=== PATIENT | male | born 1975 | race Caucasian/White ===

== ENCOUNTER 2020-02-02 19:11 | Observation (INO) ==
[2020-02-02] MEDS ORDERED: ONDANSETRON INJ 2 MG/ML 2 ML VIAL IV STA (19:55)
[2020-02-02 20:30] LABS: Basophils # (auto) 0.01 K/uL (0-0.2); Eosinophils # (auto) 0.01 K/uL (0-0.5); Hemoglobin 14.3 g/dL (14.0-18.0); Immature Granulocytes # (auto) 0.13 K/uL (0.00-0.02); Immature Granulocytes % (auto) 0.6 %; Lymphocytes # (auto) 2.18 K/uL (1.2-3.4); Lymphocytes % (auto) 10.2 %; Mean Corpuscular Hemoglobin 31.2 pg (25-34); Mean Corpuscular Volume 91.7 fL (80-100); Mean Platelet Volume 9.5 fL (7.4-10.4); Monocytes # (auto) 1.91 K/uL (0.11-0.59); Monocytes % (auto) 8.9 %; Neutrophils # (auto) 17.19 K/uL (1.4-6.5); Neutrophils % (auto) 80.3 %; Platelet Count 229 K/uL (130-400); RDW Coefficient of Variation 14.3 % (11.5-14.5); RDW Standard Deviation 48.1 fL (36.4-46.3); Red Blood Count 4.58 M/uL (4.7-6.1); White Blood Count 21.43 K/uL (4.8-10.8)
[2020-02-02 20:33] LABS: Base Excess VBG 4.4 mEq/L; Oxygen Saturation VBG 63.4 %; pH VBG 7.44 (7.36-7.41)
[2020-02-02 20:47] LABS: Alanine Aminotransferase 15 U/L (12-78); Albumin Level 3.1 gm/dl (3.4-5.0); Aspartate Aminotransferase 8 U/L (15-37); BUN Creatinine Ratio 13.1 (10-20); Blood Urea Nitrogen 10 mg/dl (7-18); Calcium 9.2 mg/dl (8.5-10.1); Carbon Dioxide 29 mmol/L (21-32); Chloride 97 mmol/L (98-107); Creatinine Clr Calc Pharmacy 182.3 ml/min; Est GFR (African American) 126.3; Glucose 126 mg/dl (70-99); Lipase 77 U/L (73-393); Potassium 3.8 mmol/L (3.5-5.1); Sodium 133 mmol/L (136-145)
[2020-02-02 20:57] LABS: Albumin Globulin Ratio 0.8 (0.9-2); Alkaline Phosphatase 69 U/L (45-117); Bilirubin,Total 0.2 mg/dl (0.2-1); Globulin 4.1 gm/dl (2.5-4.0); Thyroid Stimulating Hormone 0.454 uIu/ml (0.300-4.500); Total Protein 7.2 gm/dl (6.4-8.2); Troponin I < 0.015 ng/ml (0-0.045)
[2020-02-02 20:58] LABS: Acetaminophen < 2 ug/ml (10-30); Salicylate 2.1 mg/dl (2.8-20); Valproic Acid 114 mcg/ml (50-100)
[2020-02-02] MEDS ORDERED: ACETAMINOPHEN 500 MG TAB PO STA (21:16)
[2020-02-02] MEDS ORDERED: SODIUM CHLORIDE 0.9% 1000ML 1,000 ML IV ONE (21:16)
[2020-02-02] MEDS ORDERED: CEFEPIME 2,000 MG/20 ML VIAL IV STA (21:17)
[2020-02-02] MEDS ORDERED: OPTIRAY 320 125ml IV ONE (21:20)
--- NOTE | 2020-02-02 22:02 | Emergency Department Note ---
Impression & Plan Breathlessness, Fever, Somnolence ED Provider Note Provider: Aleksandr Bustamante MD DATE OF SERVICE: 02/02/2020 CHIEF COMPLAINT: Fatigue, shortness of breath HISTORY OF PRESENT ILLNESS: Patient is a 44-year-old gentleman with a history of anxiety, homelessness, and benzodiazepine chronic use is presenting here today via ambulance after he called for feeling tired and short of breath. Patient re ports he was recently hospitalized at [facility] and discharged 2 days ago. States has been homeless. Denies any falls. States he has had some left knee pain for the last year but this is not significantly changed. States that he is having more fatigue and shortness of breath. Patient states he did relapse today and took half a milligram of Klonopin earlier in addition to his evening Haldol at 6 PM. Also states he had some alcohol today. Denies other drugs to me. Denies again trauma or striking his head. Complains of some nausea. Denies active chest pain or abdominal pain to me. REVIEW OF SYSTEMS: A total of 10 review of systems was obtained and negative except as stated above in the HPI. PAST MEDICAL HISTORY: As noted above MEDICATIONS: Reviewed home medication list SOCIAL HISTORY: Smoker, homeless, endorses alcohol use today PHYSICAL EXAM: GENERAL: alert and oriented in no acute distress on stretcher resting with eyes closed. Oral temperature obtained myself at 37.9 C. Head: normocephalic and atraumatic EYES: No injection, discharge or icterus. PERRL NECK: Trachea midline. Supple. No meningismus or tenderness with full range of motion of the neck. ENT: Mucous membranes pink and moist. LUNGS: Airway patent. No retractions. Breath sounds clear with good air entry bilaterally. HEART: Regular rate and rhythm. No chest wall tenderness ABDOMEN: Soft and non-tender, without guarding or rebound. BACK: No bilateral flank tenderness. SKIN: Acyanotic, warm, dry, without rashes EXTREMITIES: Without swelling, tenderness or deformity for some slight left knee tenderness but no significant erythema or contusions appreciated NEUROLOGICAL: Falling asleep during questioning will answer some questions. Very drowsy. Moving all extremities and following commands. Slightly slurred speech. EK bpm normal sinus rhythm. No PVC. No acute ST segment elevation is notable. QTC 455. Some anterior T wave inversions and slight lateral ST flattening. Lateral T wave flattening's slightly worse but otherwise the cardiogram is not significantly different than January 18 of this year. CONTINUOUS CARDIAC MONITORING: was ordered and showed a heart rate of bpm in Patient's hypertension was referred to the hospitalist Patient's laboratory studies and imaging reviewed. Differential includes Viral syndrome, otitis, pharyngitis, pneumonia, influenza, meningitis, urinary tract infection, sepsis, bacteremia, ACS, VTE, cholecystitis, appendicitis, overdose, alcohol intoxication, metabolic encephalopathy, as well as other pathologies. 1 view chest x-ray: No evidence of acute pneumothorax or lobar pneumonia. No acute bony abnormality. Some slight hilar interstitial prominence noted question viral process or slight interstitial edema. IMPRESSION/MEDICAL DECISION MAKING: Patient presents state that he is feeling weak and shortness of breath. Patient is quite somnolent upon initial exam. Denies trauma but does endorse some use of Klonopin today as well as alcohol. States he also took his evening Haldol 2 hours prior to arrival. States a little bit of nausea but fairly benign abdomen. Patient does not acutely appear meningitic and follows commands. Patient complains of low bit of left knee pain is no stable swelling or trauma history and no significant contusions appreciated. Patient states this is been ongoing for about a year. Unsure is related to today's events. Did have a temperature of 37.9 orally for me here and proceeded with a full infectious and metabolic work-up. CT head was completed without acute intracranial abnormality noted per the prelim radiology report as well as a CT of the chest and the abdomen pelvis to look for other occult infectious possibilities. COVID test was sent. VBG without significant acidosis or hypercarbia. Leukocytosis of 21 is noted and with the borderline fever this is very concerning. Lactate likely not elevated. Procalcitonin 0.17. TSH within normal limits. No significant electrolyte abnormality or renal dysfunction noted. Salicylates detectable but not elevated significantly. Tylenol undetectable. Depakote just above 100 but not significantly outside the therapeutic range. Ethanol is undetectable. EKG without significant acute ST segment elevation with a negative troponin of lower suspicion for acute coronary syndrome. CT the chest preliminary read without evidence of PE or pneumonia. They do not see evidence of significant edema. CT the abdomen pelvis without significant intra-abdominal pathology. Patient was empirically covered with cefepime given leukocytosis and borderline fever here. Rapid coronavirus test negative. On reassessment he is not having severe neck pain and I have a lower suspicion at this time for acute meningitis but feel given his somnolence which may be medication related but with possible overlying infection further observation in the hospital would be prudent. He is diaphoretic and febrile upon reassessment that was after receiving Tylenol. Urine studies are still pending at this point. In agreement for further evalua tion here in the hospital. Hospitalist was contacted. DIAGNOSIS: Shortness of breath, fever, somnolence DISPOSITION: Hospitalist will evaluate Patient was agreeable with this plan. Preliminary Findings Only See Final Report For Complete Findings CT HEAD: No acute intracranial abnormality. Radiologist: Juanito Mello MD Study ready at 21:34 and initial results transmitted at 21:52 Preliminary Findings Only See Final Report For Complete Findings CT ABDOMEN & PELVIS With Contrast: Normal appendix. Unremarkable GI tract. Liver, gallbladder, pancreas, spleen, adrenal glands, kidneys, and reproductive organs are unremarkable. No free fluid, fluid collection, or free air. Radiologist: Juanito Mello MD Study ready at 21:41 and initial results transmitted at 21:54 Preliminary Findings Only See Final Report For Complete Findings CTA CHEST: No pulmonary embolism or acute aortic syndrome. No pneumonia, interstitial edema, or pleural effusion. Hepatic steatosis and hepatomegaly. Gynecomastia. Radiologist: Juanito Mello MD Study ready at 21:41 and initial results transmitted at 21:56 Past Med/Surg History Medical History (Updated 02/02/20 @ 23:11 by Aleksandr Bustamante M.D.) Bipolar disorder Depression with suicidal ideation Homelessness HTN (hypertension) Methamphetamine addiction Surgical History No pertinent past surgical history Family History Other No pertinent family history Social History Smoking Status: Current some day smoker Tobacco Type: Cigarettes Hx Substance Use: Yes Preferred Language: Yemeni Feels Safe at Home: Yes Allergies Allergies Allergy/AdvReac Type Severity Reaction Status Date / Time No Known Allergies Allergy Verified 02/02/20 21:43 Home Meds Home Medications Medication Instructions Recorded Confirmed divalproex [Depakote ER] 1,500 mg PO BID 06/16/19 02/02/20 venlafaxine [Effexor XR] 150 mg PO DAILY 06/16/19 02/02/20 clonazepam 0.5 - 1 mg PO DAILY PRN 01/19/20 02/02/20 folic acid 1 mg PO DAILY 01/19/20 02/02/20 hydroxyzine HCl 50 mg PO TID 01/19/20 02/02/20 lisinopril 10 mg PO DAILY 01/19/20 02/02/20 mirtazapine 15 mg PO HS 01/19/20 02/02/20 risperidone 1 mg PO BID 01/19/20 02/02/20 atorvastatin 40 mg PO HS 02/02/20 02/02/20 haloperidol 10 mg PO BID 02/02/20 02/02/20 Results & Data (ED) Vital Signs Vital Signs - 24 hr 02/02/20 19:25 02/02/20 19:31 02/02/20 19:40 Temperature 37.5 C Temperature Source Oral Pulse Rate 98 H 95 H 95 H Pulse Rate [Right Finger] Pulse Rate from SpO2 Sensor 97 H 96 H 95 H Respiratory Rate 12 12 20 Respiratory Effort / Characteristics Spontaneous Respiratory Depth Normal Blood Pressure 169/83 H 169/83 H Blood Pressure [Left Arm] Blood Pressure Mean 99 111 Blood Pressure Mean [Left Arm] Blood Pressure Position Lying Blood Pressure Position [Left Arm] Pulse Oximetry 96 93 94 Oxygen Delivery Method Room Air Sepsis Recent Fever Within 48 Hours No Sepsis New/Unexplained Change in Mental Status No Sepsis Action Taken by Nursing No Action Required 02/02/20 19:50 02/02/20 20:00 02/02/20 20:10 Temperature Temperature Source Pulse Rate 93 H 94 H 93 H Pulse Rate [Right Finger] Pulse Rate from SpO2 Sensor 94 H 94 H Respiratory Rate 20 29 H 18 Respiratory Effort / Characteristics Respiratory Depth Blood Pressure Blood Pressure [Left Arm] Blood Pressure Mean Blood Pressure Mean [Left Arm] Blood Pressure Position Blood Pressure Position [Left Arm] Pulse Oximetry 93 94 Oxygen Delivery Method Sepsis Recent Fever Within 48 Hours Sepsis New/Unexplained Change in Mental Status Sepsis Action Taken by Nursing 02/02/20 20:16 02/02/20 20:20 02/02/20 20:30 Temperature Temperature Source Pulse Rate 91 H 93 H 91 H Pulse Rate [Right Finger] Pulse Rate from SpO2 Sensor 91 H 93 H 91 H Respiratory Rate 21 22 17 Respiratory Effort / Characteristics Respiratory Depth Blood Pressure 158/87 H Blood Pressure [Left Arm] Blood Pressure Mean 109 Blood Pressure Mean [Left Arm] Blood Pressure Position Blood Pressure Position [Left Arm] Pulse Oximetry 94 95 93 Oxygen Delivery Method Sepsis Recent Fever Within 48 Hours Sepsis New/Unexplained Change in Mental Status Sepsis Action Taken by Nursing 02/02/20 21:00 02/02/20 21:34 02/02/20 21:35 Temperature Temperature Source Pulse Rate 91 H 95 H 92 H Pulse Rate [Right Finger] Pulse Rate from SpO2 Sensor 91 H 92 H Respiratory Rate 21 24 21 Respiratory Effort / Characteristics Respiratory Depth Blood Pressure 151/87 H Blood Pressure [Left Arm] Blood Pressure Mean 96 Blood Pressure Mean [Left Arm] Blood Pressure Position Blood Pressure Position [Left Arm] Pulse Oximetry 96 95 96 Oxygen Delivery Method Room Air Sepsis Recent Fever Within 48 Hours Sepsis New/Unexplained Change in Mental Status Sepsis Action Taken by Nursing 02/02/20 21:39 02/02/20 22:00 02/02/20 22:30 Temperature Temperature Source Pulse Rate 92 H 94 H Pulse Rate [Right Finger] 94 H Pulse Rate from SpO2 Sensor 92 H 94 H Respiratory Rate 20 24 19 Respiratory Effort / Characteristics Respiratory Depth Blood Pressure 125/89 Blood Pressure [Left Arm] 151/87 H Blood Pressure Mean 101 Blood Pressure Mean [Left Arm] 108 Blood Pressure Position Blood Pressure Position [Left Arm] Sitting Pulse Oximetry 96 95 92 Oxygen Delivery Method Room Air Sepsis Recent Fever Within 48 Hours Sepsis New/Unexplained Change in Mental Status Sepsis Action Taken by Nursing 02/02/20 22:41 02/02/20 23:06 02/02/20 23:13 Temperature 38.1 C H Temperature Source Oral Pulse Rate 90 87 Pulse Rate [Right Finger] Pulse Rate from SpO2 Sensor 90 87 Respiratory Rate 17 20 Respiratory Effort / Characteristics Respiratory Depth Blood Pressure 125/89 123/66 Blood Pressure [Left Arm] Blood Pressure Mean 102 89 Blood Pressure Mean [Left Arm] Blood Pressure Position Blood Pressure Position [Left Arm] Pulse Oximetry 94 93 Oxygen Delivery Method Room Air Room Air Sepsis Recent Fever Within 48 Hours Sepsis New/Unexplained Change in Mental Status Sepsis Action Taken by Nursing 02/02/20 23:30 Temperature Temperature Source Pulse Rate 85 Pulse Rate [Right Finger] Pulse Rate from SpO2 Sensor 85 Respiratory Rate 18 Respiratory Effort / Characteristics Respiratory Depth Blood Pressure 111/73 Blood Pressure [Left Arm] Blood Pressure Mean 88 Blood Pressure Mean [Left Arm] Blood Pressure Position Blood Pressure Position [Left Arm] Pulse Oximetry 95 Oxygen Delivery Method Room Air Sepsis Recent Fever Within 48 Hours Sepsis New/Unexplained Change in Mental Status Sepsis Action Taken by Nursing Laboratory Data Result diagrams: 02/02/20 20:07 02/02/20 20:07 Lab Results 02/02/20 02/02/20 02/02/20 Range/Units 20:07 20:07 20:07 WBC 21.43 H (4.8-10.8) K/uL RBC 4.58 L (4.7-6.1) M/uL Hgb 14.3 (14.0-18.0) g/dL Hct 42.0 (42-52) % MCV 91.7 (80-100) fL MCH 31.2 (25-34) pg MCHC 34.0 (32-36) g/dL RDW Std Deviation 48.1 H (36.4-46.3) fL RDW Coeff of Niko 14.3 (11.5-14.5) % Plt Count 229 (130-400) K/uL MPV 9.5 (7.4-10.4) fL Immature Gran % (Auto) 0.6 % Neut % (Auto) 80.3 % Lymph % (Auto) 10.2 % [place] % (Auto) 8.9 % Eos % (Auto) 0.0 % Baso % (Auto) 0.0 % Neut # (Auto) 17.19 H (1.4-6.5) K/uL Lymph # (Auto) 2.18 (1.2-3.4) K/uL [place] # (Auto) 1.91 H (0.11-0.59) K/uL Eos # (Auto) 0.01 (0-0.5) K/uL Baso # (Auto) 0.01 (0-0.2) K/uL Immature Gran # (Auto) 0.13 H (0.00-0.02) K/uL VBG pH (7.36-7.41) VBG pCO2 (38-50) mmHg VBG pO2 mmHg VBG HCO3 mmol/L VBG O2 Saturation % VBG Base Excess mEq/L Barometric Pressure mm/Hg Sodium 133 L (136-145) mmol/L Potassium 3.8 (3.5-5.1) mmol/L Chloride 97 L (98-107) mmol/L Carbon Dioxide 29 (21-32) mmol/L Anion Gap 7.0 (3-11) BUN 10 (7-18) mg/dl Creatinine 0.78 (0.6-1.4) mg/dl Est Cr Clr Drug Dosing 182.3 ml/min Est GFR ( Amer) 126.3 Est GFR (Non-Af Amer) 109.0 BUN/Creatinine Ratio 13.1 (10-20) Glucose 126 H (70-99) mg/dl Lactate (0.4-2.0) mmol/L Calcium 9.2 (8.5-10.1) mg/dl Total Bilirubin 0.2 (0.2-1) mg/dl AST 8 L (15-37) U/L ALT 15 (12-78) U/L Alkaline Phosphatase 69 (45-117) U/L Troponin I < 0.015 (0-0.045) ng/ml Total Protein 7.2 (6.4-8.2) gm/dl Albumin 3.1 L (3.4-5.0) gm/dl Globulin 4.1 H (2.5-4.0) gm/dl Albumin/Globulin Ratio 0.8 L (0.9-2) Lipase 77 (73-393) U/L Procalcitonin (0-0.5) ng/ml TSH 0.454 (0.300-4.500) uIu/ml Salicylates 2.1 L (2.8-20) mg/dl Acetaminophen < 2 L (10-30) ug/ml Valproic Acid 114 H (50-100) mcg/ml Ethyl Alcohol mg/dL (0-3) mg/dl COVID-19 Eval Order COVID-19 PCR (Negative) 02/02/20 02/02/20 02/02/20 Range/Units 20:07 20:16 20:18 WBC (4.8-10.8) K/uL RBC (4.7-6.1) M/uL Hgb (14.0-18.0) g/dL Hct (42-52) % MCV (80-100) fL MCH (25-34) pg MCHC (32-36) g/dL RDW Std Deviation (36.4-46.3) fL RDW Coeff of Niko (11.5-14.5) % Plt Count (130-400) K/uL MPV (7.4-10.4) fL Immature Gran % (Auto) % Neut % (Auto) % Lymph % (Auto) % [place] % (Auto) % Eos % (Auto) % Baso % (Auto) % Neut # (Auto) (1.4-6.5) K/uL Lymph # (Auto) (1.2-3.4) K/uL [place] # (Auto) (0.11-0.59) K/uL Eos # (Auto) (0-0.5) K/uL Baso # (Auto) (0-0.2) K/uL Immature Gran # (Auto) (0.00-0.02) K/uL VBG pH 7.44 H (7.36-7.41) VBG pCO2 44 (38-50) mmHg VBG pO2 32 mmHg VBG HCO3 29 mmol/L VBG O2 Saturation 63.4 % VBG Base Excess 4.4 mEq/L Barometric Pressure 734.3 mm/Hg Sodium (136-145) mmol/L Potassium (3.5-5.1) mmol/L Chloride (98-107) mmol/L Carbon Dioxide (21-32) mmol/L Anion Gap (3-11) BUN (7-18) mg/dl Creatinine (0.6-1.4) mg/dl Est Cr Clr Drug Dosing ml/min Est GFR ( Amer) Est GFR (Non-Af Amer) BUN/Creatinine Ratio (10-20) Glucose (70-99) mg/dl Lactate (0.4-2.0) mmol/L Calcium (8.5-10.1) mg/dl Total Bilirubin (0.2-1) mg/dl AST (15-37) U/L ALT (12-78) U/L Alkaline Phosphatase (45-117) U/L Troponin I (0-0.045) ng/ml Total Protein (6.4-8.2) gm/dl Albumin (3.4-5.0) gm/dl Globulin (2.5-4.0) gm/dl Albumin/Globulin Ratio (0.9-2) Lipase (73-393) U/L Procalcitonin 0.17 (0-0.5) ng/ml TSH (0.300-4.500) uIu/ml Salicylates (2.8-20) mg/dl Acetaminophen (10-30) ug/ml Valproic Acid (50-100) mcg/ml Ethyl Alcohol mg/dL < 3.0 (0-3) mg/dl COVID-19 Eval Order COVID-19 PCR (Negative) 02/02/20 02/02/20 02/02/20 Range/Units 20:41 21:50 21:50 WBC (4.8-10.8) K/uL RBC (4.7-6.1) M/uL Hgb (14.0-18.0) g/dL Hct (42-52) % MCV (80-100) fL MCH (25-34) pg MCHC (32-36) g/dL RDW Std Deviation (36.4-46.3) fL RDW Coeff of Niko (11.5-14.5) % Plt Count (130-400) K/uL MPV (7.4-10.4) fL Immature Gran % (Auto) % Neut % (Auto) % Lymph % (Auto) % [place] % (Auto) % Eos % (Auto) % Baso % (Auto) % Neut # (Auto) (1.4-6.5) K/uL Lymph # (Auto) (1.2-3.4) K/uL [place] # (Auto) (0.11-0.59) K/uL Eos # (Auto) (0-0.5) K/uL Baso # (Auto) (0-0.2) K/uL Immature Gran # (Auto) (0.00-0.02) K/uL VBG pH (7.36-7.41) VBG pCO2 (38-50) mmHg VBG pO2 mmHg VBG HCO3 mmol/L VBG O2 Saturation % VBG Base Excess mEq/L Barometric Pressure mm/Hg Sodium (136-145) mmol/L Potassium (3.5-5.1) mmol/L Chloride (98-107) mmol/L Carbon Dioxide (21-32) mmol/L Anion Gap (3-11) BUN (7-18) mg/dl Creatinine (0.6-1.4) mg/dl Est Cr Clr Drug Dosing ml/min Est GFR ( Amer) Est GFR (Non-Af Amer) BUN/Creatinine Ratio (10-20) Glucose (70-99) mg/dl Lactate 1.3 (0.4-2.0) mmol/L Calcium (8.5-10.1) mg/dl Total Bilirubin (0.2-1) mg/dl AST (15-37) U/L ALT (12-78) U/L Alkaline Phosphatase (45-117) U/L Troponin I (0-0.045) ng/ml Total Protein (6.4-8.2) gm/dl Albumin (3.4-5.0) gm/dl Globulin (2.5-4.0) gm/dl Albumin/Globulin Ratio (0.9-2) Lipase (73-393) U/L Procalcitonin (0-0.5) ng/ml TSH (0.300-4.500) uIu/ml Salicylates (2.8-20) mg/dl Acetaminophen (10-30) ug/ml Valproic Acid (50-100) mcg/ml Ethyl Alcohol mg/dL (0-3) mg/dl COVID-19 Eval Order Covid19 Done at [facility] COVID-19 PCR NEGATIVE (Negative) Administered Medications Discontinued Medications Acetaminophen (Acetaminophen 500 Mg Tab) 1,000 mg PO NOW STA Stop: 02/02/20 21:17 Last Admin: 02/02/20 21:53 Dose: 1,000 mg Documented by: [id number] Sodium Chloride (Nss 1000ml) 1,000 mls @ 999 mls/hr IV .[id number] ONE Stop: 02/02/20 22:16 Last Infusion: 02/02/20 22:57 Dose: 0 mls/hr Documented by: [id number] Admin: 02/02/20 21:53 Dose: 999 mls/hr Documented by: [id number] Cefepime HCl (Maxipime) 2,000 mg in 20 mls @ 5 mls/min IV NOW STA; Protocol Stop: 02/02/20 21:20 Last Admin: 02/02/20 21:53 Dose: 5 mls/min Documented by: [id number] Ioversol (Optiray 320 125ml) 119 ml IV ONCE ONE Stop: 02/02/20 21:21 Last Admin: 02/02/20 21:20 Dose: 119 ml Documented by: [id number] Ondansetron HCl (Ondansetron Inj 2 Mg/Ml 2 Ml Vial) 4 mg IV NOW STA Stop: 02/02/20 19:56 Last Admin: 02/02/20 20:26 Dose: Not Given Documented by: [id number] Discharge Plan Visit Data Chief Complaint: Illness Stated Complaint: SOB ED Provider: Aleksandr Bustamante Discharge Problem: Breathlessness, Fever, Somnolence Patient Disposition: Being Evaluated by Hospitalist Forms Stand Alone Forms: [facility] [employer] Prescriptions Prescriptions: No Action divalproex [Depakote ER] 500 mg Tablet Extended Release 24 Hr 1,500 mg PO BID RF: 0 venlafaxine [Effexor XR] 150 mg Capsule,Extended Release 24hr 150 mg PO DAILY RF: 0 atorvastatin 40 mg tablet 40 mg PO HS RF: 0 haloperidol 10 mg tablet 10 mg PO BID RF: 0 clonazepam 1 mg tablet 0.5 - 1 mg PO DAILY PRN (Reason: Anxiety) RF: 0 hydroxyzine HCl 50 mg tablet 50 mg PO TID RF: 0 lisinopril 10 mg tablet 10 mg PO DAILY RF: 0 folic acid 1 mg tablet 1 mg PO DAILY RF: 0 mirtazapine 15 mg tablet 15 mg PO HS RF: 0 risperidone 1 mg tablet 1 mg PO BID RF: 0 Referrals Referrals: PCP,NO [Primary Care Provider] - Discharge Problem: Fever Qualifiers: Fever type: unspecified Qualified Code(s): R50.9 - Fever, unspecified
--- NOTE | 2020-02-03 00:09 | History & Physical Report ---
Date of Service February 03, 2020 Assessment & Plan (1) Altered mental status: Altered mental status/bipolar disorder/anxiety/depression/hopelessness/homelessness/febrile illness- Patient reportedly had taken at that dosing of clonazepam and Haldol prior to arrival, such that during my assessment, he was sedated and difficult to arouse. Evening medications will be held this evening, and will attempt to resume in the a.m. if his level of responsiveness increases. Have asked social media designer to work with patient regarding his homeless status. Due to his living status he was tested for COVID-19 while in the ED, and was negative. Present on Admission?: Yes (2) Anxiety: (3) Depression: (4) Hopelessness: (5) Hyperlipidemia: Resume atorvastatin when becomes more alert Present on Admission?: Yes (6) HTN (hypertension): Resume lisinopril when becomes more alert Present on Admission?: Yes (7) Bipolar disorder: (8) Homelessness: (9) Febrile illness: He did receive a single dosing of cefepime while in the ED, from the ED. Hold any additional antibiotics, and monitor for any signs and symptoms of infection. Present on Admission?: Yes History of Present Illness Chief Complaint: The patient presented to the emergency department with complaint of feeling generally weak, very tired and short of breath after being recently hospitalized and then discharged from [facility] 2 days ago. Primary Care Provider: NO PCP The patient is a 44-year-old male with a past medical history including anxiety, depression, hyperlipidemia, agitation, insomnia, and hypertension. He presents as noted above. He is homeless, denies any recent falls or injuries. He reportedly had taken a dose of Haldol and clonazepam prior to arrival to the emergency department, and at the time of my assessment was very sedated and difficult to arouse. Allergies Allergy/AdvReac Type Severity Reaction Status Date / Time No Known Allergies Allergy Verified 02/02/20 21:43 Home Medications Home Medications Medication Instructions Recorded Confirmed Type divalproex [Depakote ER] 1,500 mg PO BID 06/16/19 02/02/20 History venlafaxine [Effexor XR] 150 mg PO DAILY 06/16/19 02/02/20 History clonazepam 0.5 - 1 mg PO DAILY PRN 01/19/20 02/02/20 History folic acid 1 mg PO DAILY 01/19/20 02/02/20 History hydroxyzine HCl 50 mg PO TID 01/19/20 02/02/20 History lisinopril 10 mg PO DAILY 01/19/20 02/02/20 History mirtazapine 15 mg PO HS 01/19/20 02/02/20 History risperidone 1 mg PO BID 01/19/20 02/02/20 History atorvastatin 40 mg PO HS 02/02/20 02/02/20 History haloperidol 10 mg PO BID 02/02/20 02/02/20 History Past Med/Surg History Medical History (Updated 02/03/20 @ 03:28 by Chucho Geronimo MD) Bipolar disorder Depression with suicidal ideation Homelessness HTN (hypertension) Hyperlipidemia Methamphetamine addiction Surgical History No pertinent past surgical history Family History Other No pertinent family history Social History Smoking Status: Current every day smoker Tobacco Type: Cigarettes Hx Alcohol Use: Yes Hx Substance Use: Yes Substance Use Type Other:: pt too lethargic to answer Preferred Language: Latvian Beliefs That Will Affect Care: None Current Living Situation: Homeless Feels Safe at Home: Yes Review of Systems Review of Systems: Unobtainable due to cognitive status Physical Exam Physical Exam: The patient is sedated, difficult to arouse, well developed and well nourished, normocephalic and atraumatic, lying in bed and in no acute distress. HEENT--PERRL, EOMI, mucous membranes and oropharynx normal. Neck--supple. No JVD. No bruits. Thyroid normal, trachea midline, no adenopathy. Heart--normal S1 and S2. No murmurs, rubs or gallops. Lungs--clear bilaterally, no respiratory distress, no accessory muscle use. Abdomen--normal bowel sounds and soft. Nontender. Nondistended. Morbidly obese Extremities--no cyanosis or clubbing. No edema. Dermatologic--normal skin turgor, normal color, no abnormal lymph nodes, no rash. Neurologic--cranial nerves II through XII grossly intact. Rheumatologic--limited exam Psychiatric--sedated and lethargic Results & Data Results & Data ([facility]) Vital Signs (Past 12 Hours) Vital Signs Temp Pulse Pulse Resp BP BP Pulse Ox 02/03/20 00:02 88 L 02/03/20 00:00 89 17 152/89 H 98 02/02/20 23:30 85 18 111/73 95 02/02/20 23:13 87 20 123/66 93 02/02/20 23:06 100.6 F H 02/02/20 22:41 90 17 125/89 94 02/02/20 22:30 94 H 19 125/89 92 02/02/20 22:00 92 H 24 95 02/02/20 21:39 94 H 20 151/87 H 96 02/02/20 21:35 92 H 21 96 02/02/20 21:34 95 H 24 151/87 H 95 02/02/20 21:00 91 H 21 96 02/02/20 20:30 91 H 17 93 02/02/20 20:20 93 H 22 95 02/02/20 20:16 91 H 21 158/87 H 94 02/02/20 20:10 93 H 18 02/02/20 20:00 94 H 29 H 94 02/02/20 19:50 93 H 20 93 02/02/20 19:40 95 H 20 94 02/02/20 19:31 99.5 F 95 H 12 169/83 H 93 02/02/20 19:25 98 H 12 169/83 H 96 Laboratory Results Laboratory Results WBC 21.43 K/uL (4.8-10.8) H 02/02/20 20:07 RBC 4.58 M/uL (4.7-6.1) L 02/02/20 20:07 Hgb 14.3 g/dL (14.0-18.0) 02/02/20 20:07 Hct 42.0 % (42-52) 02/02/20 20:07 MCV 91.7 fL (80-100) 02/02/20 20:07 MCH 31.2 pg (25-34) 02/02/20 20:07 MCHC 34.0 g/dL (32-36) 02/02/20 20:07 RDW Std Deviation 48.1 fL (36.4-46.3) H 02/02/20 20:07 RDW Coeff of Niko 14.3 % (11.5-14.5) 02/02/20 20:07 Plt Count 229 K/uL (130-400) 02/02/20 20:07 MPV 9.5 fL (7.4-10.4) 02/02/20 20:07 Immature Gran % (Auto) 0.6 % 02/02/20 20:07 Neut % (Auto) 80.3 % 02/02/20 20:07 Lymph % (Auto) 10.2 % 02/02/20 20:07 [place] % (Auto) 8.9 % 02/02/20 20:07 Eos % (Auto) 0.0 % 02/02/20 20:07 Baso % (Auto) 0.0 % 02/02/20 20:07 Neut # (Auto) 17.19 K/uL (1.4-6.5) H 02/02/20 20:07 Lymph # (Auto) 2.18 K/uL (1.2-3.4) 02/02/20 20:07 [place] # (Auto) 1.91 K/uL (0.11-0.59) H 02/02/20 20:07 Eos # (Auto) 0.01 K/uL (0-0.5) 02/02/20 20:07 Baso # (Auto) 0.01 K/uL (0-0.2) 02/02/20 20:07 Immature Gran # (Auto) 0.13 K/uL (0.00-0.02) H 02/02/20 20:07 VBG pH 7.44 (7.36-7.41) H 02/02/20 20:16 VBG pCO2 44 mmHg (38-50) 02/02/20 20:16 VBG pO2 32 mmHg 02/02/20 20:16 VBG HCO3 29 mmol/L 02/02/20 20:16 VBG O2 Saturation 63.4 % 02/02/20 20:16 VBG Base Excess 4.4 mEq/L 02/02/20 20:16 Barometric Pressure 734.3 mm/Hg 02/02/20 20:16 Sodium 133 mmol/L (136-145) L 02/02/20 20:07 Potassium 3.8 mmol/L (3.5-5.1) 02/02/20 20:07 Chloride 97 mmol/L (98-107) L 02/02/20 20:07 Carbon Dioxide 29 mmol/L (21-32) 02/02/20 20:07 Anion Gap 7.0 (3-11) 02/02/20 20:07 BUN 10 mg/dl (7-18) 02/02/20 20:07 Creatinine 0.78 mg/dl (0.6-1.4) 02/02/20 20: Est Cr Clr Drug Dosing 182.3 ml/min 02/02/20 20:07 Est GFR ( Amer) 126.3 02/02/20 20:07 Est GFR (Non-Af Amer) 109.0 02/02/20 20: BUN/Creatinine Ratio 13.1 (10-20) 02/02/20 20:07 Glucose 126 mg/dl (70-99) H 02/02/20 20:07 Lactate 1.3 mmol/L (0.4-2.0) 02/02/20 20:41 Calcium 9.2 mg/dl (8.5-10.1) 02/02/20 20:07 Total Bilirubin 0.2 mg/dl (0.2-1) 02/02/20 20:07 AST 8 U/L (15-37) L 02/02/20 20:07 ALT 15 U/L (12-78) 02/02/20 20:07 Alkaline Phosphatase 69 U/L (45-117) 02/02/20 20:07 Troponin I < 0.015 ng/ml (0-0.045) 02/02/20 20:07 Total Protein 7.2 gm/dl (6.4-8.2) 02/02/20 20:07 Albumin 3.1 gm/dl (3.4-5.0) L 02/02/20 20:07 Globulin 4.1 gm/dl (2.5-4.0) H 02/02/20 20:07 Albumin/Globulin Ratio 0.8 (0.9-2) L 02/02/20 20:07 Lipase 77 U/L (73-393) 02/02/20 20:07 Procalcitonin 0.17 ng/ml (0-0.5) 02/02/20 20:18 TSH 0.454 uIu/ml (0.300-4.500) 02/02/20 20:07 Urine Color Yellow 02/03/20 00:40 Urine Appearance Clear (Clear) 02/03/20 00:40 Urine pH 6.0 (4.5-7.5) 02/03/20 00:40 Ur Specific Bitely > 1.045 (1.000-1.030) H 02/03/20 00:40 Urine Protein Negative (Negative) 02/03/20 00:40 Urine Glucose (UA) Negative (Negative) 02/03/20 00:40 Urine Ketones Trace (Negative) H 02/03/20 00:40 Urine Blood Negative (Negative) 02/03/20 00:40 Urine Nitrite Negative (Negative) 02/03/20 00:40 Urine Bilirubin Negative (Negative) 02/03/20 00:40 Urine Urobilinogen Negative (Negative) 02/03/20 00:40 Ur Leukocyte Esterase Negative (Negative) 02/03/20 00:40 Salicylates 2.1 mg/dl (2.8-20) L 02/02/20 20:07 Urine Opiates Screen Neg (Neg) 02/03/20 00:40 Ur Methadone, Qual Neg (Neg) 02/03/20 00:40 Acetaminophen < 2 ug/ml (10-30) L 02/02/20 20:07 Urine Barbiturates Neg (Neg) 02/03/20 00:40 Valproic Acid 114 mcg/ml (50-100) H 02/02/20 20:07 Ur Phencyclidine (PCP) Neg (Neg) 02/03/20 00:40 U Amphetamin/Meth Scrn Neg (Neg) 02/03/20 00:40 MDMA (Ecstasy) Screen Neg (Neg) 02/03/20 00:40 U Benzodiazepines Scrn Neg (Neg) 02/03/20 00:40 Ur Cocaine Metabolite Neg (Neg) 02/03/20 00:40 U Marijuana (THC) Screen Neg (Neg) 02/03/20 00:40 Ethyl Alcohol mg/dL < 3.0 mg/dl (0-3) 02/02/20 20:07 COVID-19 Eval Order Covid19 Done at [facility] 02/02/20 21:50 COVID-19 PCR NEGATIVE (Negative) 02/02/20 21:50 Diagnostic Findings [facility] Patient: PEDRO OSORIO (Male) : 73 Status: ER Date: 02/02/20 21:31 Room #: History: fatigue Slices: 58 Priors: Tech: Perry Dejesus @ [phone] Exams: CT HEAD Contrast: Accession Numbers: [id number] Preliminary Findings Only See Final Report For Complete Findings CT HEAD: No acute intracranial abnormality. Radiologist: Juanito Mello MD Study ready at 21:34 and initial results transmitted at 21:52 *This report constitutes a preliminary interpretation only. Non-acute findings felt to be unrelated to the clinical presentation may not be discussed in this report. The study will be interpreted and a final report will be generated by the local Radiologist the following shift. To reach the hospital radiology department call [phone]. If a discrepancy is found between the preliminary and final interpretations of this study, please notify us via our Client Portal at [email or web address] can also fax this report with a description of the discrepancy, or include the final report, to our daytime fax number [phone].If faxing, please indicate the severity of discrepancy using one of the following categories: [ ] 1 - Agree/Informational [ ] 2 - Unlikely to Affect Management [ ] 3 - Possible Eventual Change of Management [ ] 4 - Probable Immediate Change of Management For all other patient related information, please fax us at [phone]. [id number] [facility] Patient: PEDRO OSORIO (Male) : 73 Status: ER Date: 02/02/20 21:34 Room #: History: nausea fatigue fever Slices: 834 Priors: Tech: Perry Dejesus @ [id number] Exams: CT ABDOMEN & PELVIS With Contrast Contrast: IV Amt: 119 Accession Numbers: [id number] Preliminary Findings Only See Final Report For Complete Findings CT ABDOMEN & PELVIS With Contrast: Normal appendix. Unremarkable GI tract. Liver, gallbladder, pancreas, spleen, adrenal glands, kidneys, and reproductive organs are unremarkable. No free fluid, fluid collection, or free air. Radiologist: Juanito Mello MD Study ready at 21:41 and initial results transmitted at 21:54 *This report constitutes a preliminary interpretation only. Non-acute findings felt to be unrelated to the clinical presentation may not be discussed in this report. The study will be interpreted and a final report will be generated by the local Radiologist the following shift. To reach the hospital radiology department call [phone]. If a discrepancy is found between the preliminary and final interpretations of this study, please notify us via our Client Portal at [email or web address].You can also fax this report with a description of the discrepancy, or include the final report, to our daytime fax number [phone].If faxing, please indicate the severity of discrepancy using one of the following categories: [ ] 1 - Agree/Informational [ ] 2 - Unlikely to Affect Management [ ] 3 - Possible Eventual Change of Management [ ] 4 - Probable Immediate Change of Management For all other patient related information, please fax us at [phone]. [id number] [facility] Patient: PEDRO OSORIO (Male) : 73 Status: ER Date: 02/02/20 21:38 Room #: History: SOB Slices: 831 Priors: Tech: OlegRudolpht @ [phone] Exams: CTA CHEST Contrast: IV Amt: 119 Accession Numbers: [id number] Preliminary Findings Only See Final Report For Complete Findings CTA CHEST: No pulmonary embolism or acute aortic syndrome. No pneumonia, interstitial edema, or pleural effusion. Hepatic steatosis and hepatomegaly. Gynecomastia. Radiologist: Juanito Mello MD Study ready at 21:41 and initial results transmitted at 21:56 *This report constitutes a preliminary interpretation only. Non-acute findings felt to be unrelated to the clinical presentation may not be discussed in this report. The study will be interpreted and a final report will be generated by the local Radiologist the following shift. To reach the hospital radiology department call [phone]. If a discrepancy is found between the preliminary and final interpretations of this study, please notify us via our Client Portal at [email or web address].You can also fax this report with a description of the discrepancy, or include the final report, to our daytime fax number [phone].If faxing, please indicate the severity of discrepancy using one of the following categories: [ ] 1 - Agree/Informational [ ] 2 - Unlikely to Affect Management [ ] 3 - Possible Eventual Change of Management [ ] 4 - Probable Immediate Change of Management For all other patient related information, please fax us at [phone]. [id number] Code Status & VTE Plan Code Status Full code VTE Prophylaxis Plan VTE Prophylaxis will be ordered: Yes PG Care Time/CCT Total # of Minutes Spent Total Time Spent with Patient: Total time spent is greater than 50% in co ordination of care (as documented) at patient's floor/unit and/or counseling patient: Coding Level of Care Code 86487 OBS Care - Level 3 Diagnoses Altered mental status R41.82 Anxiety F41.9 Depression F32.9 Hopelessness R45.89 Hyperlipidemia E78.5 HTN (hypertension) I10 Bipolar disorder F31.9 Homelessness Z59.0 Febrile illness R50.9
[2020-02-03] MEDS ORDERED: ALUMINUM/MAGNESIUM SUSP 30 ML UDC PO PRN (01:01)
[2020-02-03] MEDS ORDERED: ONDANSETRON INJ 2 MG/ML 2 ML VIAL IV PRN (01:01)
[2020-02-03] MEDS ORDERED: ACETAMINOPHEN 325 MG TAB PO PRN (01:01)
[2020-02-03] MEDS ORDERED: MAGNESIUM HYDROXIDE SUSP 30 ML UDC PO PRN (01:01)
[2020-02-03 01:25] LABS: Appearance Urine Clear (Clear); Bilirubin Urine Negative (Negative); Blood Urine Negative (Negative); Color Urine Yellow; Glucose Urine UA Negative (Negative); Ketones Urine Trace (Negative); Leukocyte Esterase Urine Negative (Negative); Nitrite Urine Negative (Negative); Protein Urine Negative (Negative); Specific Gravity Urine > 1.045 (1.000-1.030); Urobilinogen Urine Negative (Negative)
[2020-02-03 01:43] LABS: Amphetamines+Metham, Urine Neg (Neg); Barbiturates, Urine Neg (Neg); Benzodiazepine, Urine Neg (Neg); Cocaine, Urine Neg (Neg); MDMA (Ecstacy), Urine Neg (Neg); Methadone, Urine Neg (Neg); Opiate, Urine Neg (Neg); Phencyclidine, Urine Neg (Neg)
[2020-02-03] MEDS: HEPARIN SOD 5,000 UNIT/0.5 ML VIAL SQ SCH ×3 (05:54→21:46)
--- NOTE | 2020-02-03 07:13 | Electrocardiogram Report ---
Test Reason : Blood Pressure : / mmHG Vent. Rate : 092 BPM Atrial Rate : 092 BPM P-R Int : 146 ms QRS Dur : 108 ms QT Int : 368 ms P-R-T Axes : 024 150 056 degrees QTc Int : 455 ms Normal sinus rhythm Indeterminate axis Nonspecific ST and T wave abnormality Abnormal ECG When compared with ECG of 19-JAN-2020 03:12, T wave inversion now evident in Anterior leads Confirmed by Navi Aranda ([id number]) on 02/03/2020 7:12:50 AM Referred By: REFERRED SELF Confirmed By:Navi Aranda
--- NOTE | 2020-02-03 07:21 | CT Scan Report ---
CT SCAN OF THE BRAIN WITHOUT IV CONTRAST CLINICAL HISTORY: Fatigue. COMPARISON STUDY: No priors. TECHNIQUE: Unenhanced axial CT scan of the brain is performed from the vertex to the skull base. A d ose lowering technique was utilized adhering to the principles of ALARA. FINDINGS: Brain parenchyma: The brain parenchyma is normal in appearance. There is no hemorrhage, mass effect, or evidence of acute territorial ischemia by CT criteria. Villanueva-white matter differentiation is preser aaron. No extra-axial fluid collection is seen. Ventricles, sulci, cisterns: Normal in configuration. Intracranial vasculature: The visualized intracranial vasculature at the skull base is normal in appe arance. Calvarium: Unremarkable. Sinuses and mastoids: Trace mucosal thickening is noted in the right maxillary sinus and the ethmoid sinuses. The remaining visualized paranasal sinuses are clear. There are bilateral mastoid effusions. Orbits: The bony orbits are grossly intact. There is evidence of previous left ocular lens surgery. IMPRESSION: No acute intracranial abnormality. ACT 112: Negative or not required by law. Electronically signed by: Don Dejesus M.D. 02/03/2020 7:20 AM
[2020-02-03] MEDS: lisinopriL 10 MG TAB PO SCH (07:55)
[2020-02-03] MEDS: risperiDONE 1 MG TABLET PO SCH ×2 (07:55→08:04)
[2020-02-03] MEDS: FOLIC ACID 1 MG TAB PO SCH (07:56)
[2020-02-03] MEDS: haloperidoL 5 MG TAB PO SCH ×2 (07:56→20:07)
[2020-02-03] MEDS: DIVALPROEX DELAY RELEASE 500 MG TAB PO SCH ×2 (07:57→20:08)
[2020-02-03] MEDS: VENLAFAXINE HCL XR 150 MG CAPXR PO SCH (07:58)
--- NOTE | 2020-02-03 08:06 | CT Scan Report ---
CT ANGIOGRAM OF THE CHEST; CT SCAN OF THE ABDOMEN AND PELVIS WITH IV CONTRAST CLINICAL HISTORY: Fatigue. COMPARISON STUDY: Chest x-ray dated 02/02/2020. Abdominal CT dated 06/29/2019. TECHNIQUE: Following the IV administration of 119 of Optiray 320, CT angiogram of the chest is perfor med from the upper abdomen to the thoracic inlet utilizing the pulmonary embolus protocol. Images are reviewed in the axial, sagittal, coronal planes. 3-D MIPS images are created and assessed. Subsequen tly, CT scan of the abdomen and pelvis was performed from the lung bases to the proximal femora. Imag es are reviewed in the axial, sagittal, and coronal planes. IV contrast was administered without comp lication. A dose lowering technique was utilized adhering to the principles of ALARA. CT DOSE: 3383.78 mGy.cm FINDINGS: CHEST: Thyroid: Imaged portions of the thyroid gland are normal in size and attenuation. Thoracic aorta: The thoracic aorta is normal in caliber and demonstrates bovine variant arch anatomy. No dissection is seen. Pulmonary vasculature: The pulmonary trunk is normal in caliber. There are no filling defects identif ied in the main, lobar, or proximal segmental pulmonary arteries to indicate pulmonary embolus. Evalu ation of the peripheral branches is degraded by suboptimal contrast opacification. Heart: The heart is normal in size and configuration, and without pericardial effusion. Lungs and pleural spaces: Evaluation of the lung parenchyma is degraded by motion artifact. There is no airspace consolidation or pleural effusion. The trachea and central airways are clear. Mediastinum: There is no mediastinal lymphadenopathy. Effie: Clear. Axillae: There is no axillary lymphadenopathy. Bony thorax: No lytic or blastic lesions are identified. Soft tissues: Gynecomastia is noted. ABDOMEN AND PELVIS: Liver: The contrast-enhanced liver is enlarged, measuring 21.6 cm in length. The liver demonstrates d iffusely diminished attenuation consistent with hepatic steatosis. There is no intrahepatic or ductal dilatation. The hepatic veins and portal veins are patent. Gallbladder: Unremarkable. Spleen: Normal in size and attenuation. Pancreas: Unremarkable. Adrenal glands: Unremarkable. Kidneys: The contrast enhanced kidneys are normal in size and without hydronephrosis. The kidneys enh ance symmetrically. Abdominal vasculature: The abdominal aorta is normal in course and caliber noting moderate age advanc ed atherosclerotic calcification. Bowel: There is no bowel obstruction. The appendix is well-visualized and normal. Peritoneum: There is no intraperitoneal free air or abdominal ascites. Lymphadenopathy: None. Pelvic viscera: The bladder, prostate, and seminal vesicles are normal as imaged. Skeletal structures: No lytic or blastic lesions are seen. IMPRESSION: 1. There is no evidence of pulmonary embolus in the main, lobar, or proximal segmental pulmonary alessandra xin. 2. There is no airspace consolidation or pleural effusion. 3. There are no acute infectious or inflammatory findings in the abdomen or pelvis. 4. Hepatomegaly and hepatic steatosis. 5. Additional findings as above. ACT 112: Negative or not required by law. Electronically signed by: Don Dejesus M.D. 02/03/2020 8:04 AM
[2020-02-03 08:11] LABS: Basophils # (auto) 0.02 K/uL (0-0.2); Basophils % (auto) 0.1 %; Eosinophils # (auto) 0.06 K/uL (0-0.5); Eosinophils % (auto) 0.3 %; Hematocrit (blood only) 41.3 % (42-52); Hemoglobin 13.9 g/dL (14.0-18.0); Immature Granulocytes # (auto) 0.09 K/uL (0.00-0.02); Immature Granulocytes % (auto) 0.5 %; Lymphocytes # (auto) 2.44 K/uL (1.2-3.4); Lymphocytes % (auto) 13.7 %; Mean Corpuscular Hemoglobin 30.8 pg (25-34); Mean Corpuscular Hgb Conc 33.7 g/dL (32-36); Mean Corpuscular Volume 91.4 fL (80-100); Mean Platelet Volume 9.7 fL (7.4-10.4); Monocytes # (auto) 2.15 K/uL (0.11-0.59); Monocytes % (auto) 12.1 %; Neutrophils # (auto) 13.07 K/uL (1.4-6.5); Neutrophils % (auto) 73.3 %; Platelet Count 228 K/uL (130-400); RDW Coefficient of Variation 14.4 % (11.5-14.5); RDW Standard Deviation 48.5 fL (36.4-46.3); Red Blood Count 4.52 M/uL (4.7-6.1); White Blood Count 17.83 K/uL (4.8-10.8)
[2020-02-03 08:22] LABS: Prothrombin Time 10.5 Seconds (9.0-12.0)
--- NOTE | 2020-02-03 08:39 | XRay Report ---
XR chest 1V portable HISTORY: 44 years-old Male sob . Acute shortness of breath COMPARISON: CTA of the chest of same day TECHNIQUE: Portable AP view of the chest FINDINGS: Cardiomediastinal and hilar silhouettes are within normal limits. Mild right hemidiaphragmatic elevat ion. No pneumothorax, pleural effusion, airspace consolidation or overt pulmonary edema. Bones of the chest appear grossly intact. IMPRESSION: No acute process. ACT 112: Negative or not required by law. The above report was generated using voice recognition software. It may contain grammatical, syntax o r spelling errors. Electronically signed by: Randy Lewis M.D. 02/03/2020 8:38 AM
[2020-02-03 08:40] LABS: Albumin Level 2.8 gm/dl (3.4-5.0); BUN Creatinine Ratio 11.9 (10-20); Calcium 8.7 mg/dl (8.5-10.1); Creatinine Clr Calc Pharmacy 234.1 ml/min; Est GFR (African American) 140.7; Est GFR (Non-African American) 121.4; Potassium 3.7 mmol/L (3.5-5.1)
[2020-02-03 08:43] LABS: Albumin Globulin Ratio 0.7 (0.9-2); Bilirubin,Total 0.2 mg/dl (0.2-1); Globulin 4.1 gm/dl (2.5-4.0); Total Protein 6.9 gm/dl (6.4-8.2)
[2020-02-03 12:23] LABS: Adenovirus PCR Not Detected (NotDetected); Bordetella parapertussis PCR Not Detected (NotDetected); Bordetella pertussis PCR Not Detected (NotDetected); Chlamydia pneumoniae PCR Not Detected (NotDetected); Coronavirus 229E PCR Not Detected (NotDetected); Coronavirus CoV-2 (COVID19)PCR Not Detected (NotDetected); Coronavirus HKU1 PCR Not Detected (NotDetected); Coronavirus NL63 PCR Not Detected (NotDetected); Coronavirus OC43PCR Not Detected (NotDetected); Human Metapneumovirus PCR Not Detected (NotDetected); Influenza A PCR Not Detected (NotDetected); Influenza B PCR Not Detected (NotDetected); Mycoplasma pneumoniae PCR Not Detected (NotDetected); Parainfluenza Virus 1 PCR Not Detected (NotDetected); Parainfluenza Virus 2 PCR Not Detected (NotDetected); Parainfluenza Virus 3 PCR Not Detected (NotDetected); Parainfluenza Virus 4 PCR Not Detected (NotDetected); Respiratory Syncytial VirusPCR Not Detected (NotDetected); Rhinovirus/Enterovirus PCR Not Detected (NotDetected)
--- NOTE | 2020-02-03 14:12 | Hospitalist Progress Note ---
Date of Service February 03, 2020 Assessment & Plan (1) Febrile illness: Presented with fatigue, shortness of breath, leukocytosis, and fever. Also with development of sore throat with white exudate the day after admission now. COVID-19-, [facility] viral respiratory panel negative, rapid strep antigen test is negative and throat culture pending, Monospot negative Blood cultures-no growth to date Urinalysis negative Chest x-ray negative, CT of the chest/abdomen/pelvis with angiogram portion of the chest all negative for acute infection Procalcitonin mildly elevated at 0.17 Could be bacterial infection given minimally elevated procalcitonin and significantly elevated leukocytosis with neutrophilia predominance with improvement on IV antibiotics as he received a single dose of cefepime in the ER. He does note sinus congestion and there is some minimal sinus disease on CT of the head. Perhaps this is an acute sinusitis Leukocytosis is now improving, afebrile today -Continue to follow blood cultures -Will go ahead and continue Rocephin to cover for acute sinusitis -If blood cultures remain negative by tomorrow, could discharged home (2) Altered mental status: Acute metabolic encephalopathy-secondary to acute infection in the setting of taking Haldol and clonazepam Mental status is certainly improved but remains drowsy likely as a side effect of medications (3) Anxiety: Continue home medications as he was just discharged from an inpatient psychiatric stay Of note, he reports he is no longer taking Risperdal -Continue home Depakote, Haldol, hydroxyzine, mirtazapine, and venlafaxine (4) Depression: Stable, Continue meds as above (5) Hyperlipidemia: Continue atorvastatin (6) HTN (hypertension): Blood pressures are acceptable -Continue home lisinopril (7) Bipolar disorder: As above Continue Depakote (8) Homelessness: Gets detention from local out of the cold homeless program Case management is involved (9) Sore throat: As above Follow throat culture (10) Acute respiratory failure with hypoxia: check overnight sleep study clearly has body habitus for RUDY and also with sinus issues start Zyrtec, FLonase (11) Obesity: BMI 44.8 Needs counseling on weight loss Has fatty liver (12) Abnormal ECG: ECG with some nonspecific abnormalities with T wave inversions in the anterior leads He denies any chest pain, troponin was negative No further work-up needed (13) Hyponatremia: Sodium mildly low at 133 on admission Received fluids and is up to 136 today No further evaluation needed (14) DVT prophylaxis: Heparin SQ Disposition-continued stay on medical floor with telemetry May need home O2 overnight upon discharge, case management to be involved Admission and Anticipated Discharge Date Admission Date: February 03, 2020 Subjective Patient reports feeling much better than yesterday. Still has a mild headache. Has a sore throat. Appetite is improved but reports that he cannot taste or smell the food which makes it less desirable to eat. He reports that he frequently loses his sense of taste and smell whenever he gets even the slightest common cold. He has chronic sinus congestion and nasal congestion. He snores and reports he has never had a sleep study. He is on oxygen when I saw him. He is still very fatigued and falls asleep in mid conversation multiple times while talking to him. He is easy to wake up and laughs that he keeps falling asleep in the middle of the conversation. He still reports feeling a little bit short of breath, but no cough. No chest pain. No joint pains or rashes anywhere. No wounds anywhere that he knows of. Had one loose stool today. No abdominal pain. No nausea or vomiting. He denies any sick contacts when he was recently admitted to the inpatient psychiatric unit. He then was home for 1 night and stayed at a local hotel in a homeless detention program. He knows of no sick contacts at either place. Telemetry with normal sinus rhythm with rates in the 70s to 80s. Review of Systems Review of Systems: All systems reviewed & are unremarkable except as noted in HPI & below Physical Exam Constitutional: WD/WN, vitals as above + morbidly obese Eyes: PERRL, conjunctivae normal, anicteric sclerae ENMT: Ears: no hearing impairment and no external ear abnormality Nose: no external nose abnormality, no nasal discharge and no facial edema Mouth: + oropharynx abnormality (Erythematous posterior oropharynx with several white circular lesions, very large tongue); no lip abnormality and no tongue abnormality Neck: trachea midline, no thyromegaly Respiratory: normal respiratory effort, lungs clear to auscultation Cardiovascular: RRR, no murmur, no edema Chest (Breasts): Chest: normal inspection of chest Gastrointestinal (Abdomen): normal bowel sounds, soft, nontender, no hepatosplenomegaly Musculoskeletal: Extremities: extremities normal to inspection; no cyanosis and no clubbing Skin: no rashes, warm and dry Neurologic: moves all extremities and awake (But drowsy and frequently fell asleep mid conversation); no focal motor deficits Psychiatric: Affect: euthymic affect Lymphatic: no lymphedema Results & Data Results & Data ([facility]) Vital Signs (Past 12 Hours) Vital Signs Temp Pulse Pulse Resp BP BP Pulse Ox 02/03/20 11:06 37.1 C 81 18 116/76 90 02/03/20 09:48 02/03/20 09:30 82 02/03/20 07:29 36.7 C 98 H 20 148/86 H 94 02/03/20 03:36 37.2 C 77 20 121/72 99 02/03/20 02:28 77 Pulse Ox 02/03/20 11:06 02/03/20 09:48 95 02/03/20 09:30 02/03/20 07:29 02/03/20 03:36 02/03/20 02:28 Laboratory Results 02/03/20 02/03/20 02/03/20 Range/Units 14:32 14:32 10:40 WBC (4.8-10.8) K/uL RBC (4.7-6.1) M/uL Hgb (14.0-18.0) g/dL Hct (42-52) % MCV (80-100) fL MCH (25-34) pg MCHC (32-36) g/dL RDW Std Deviation (36.4-46.3) fL RDW Coeff of Niko (11.5-14.5) % Plt Count (130-400) K/uL MPV (7.4-10.4) fL Immature Gran % (Auto) % Neut % (Auto) % Lymph % (Auto) % Isabela % (Auto) % Eos % (Auto) % Baso % (Auto) % Neut # (Auto) (1.4-6.5) K/uL Lymph # (Auto) (1.2-3.4) K/uL Isabela # (Auto) (0.11-0.59) K/uL Eos # (Auto) (0-0.5) K/uL Baso # (Auto) (0-0.2) K/uL Immature Gran # (Auto) (0.00-0.02) K/uL PT (9.0-12.0) Seconds INR (0.9-1.1) VBG pH (7.36-7.41) VBG pCO2 (38-50) mmHg VBG pO2 mmHg VBG HCO3 mmol/L VBG O2 Saturation % VBG Base Excess mEq/L Barometric Pressure mm/Hg Sodium (136-145) mmol/L Potassium (3.5-5.1) mmol/L Chloride (98-107) mmol/L Carbon Dioxide (21-32) mmol/L Anion Gap (3-11) BUN (7-18) mg/dl Creatinine (0.6-1.4) mg/dl Est Cr Clr Drug Dosing ml/min Est GFR ( Amer) Est GFR (Non-Af Amer) BUN/Creatinine Ratio (10-20) Glucose (70-99) mg/dl Lactate (0.4-2.0) mmol/L Calcium (8.5-10.1) mg/dl Total Bilirubin (0.2-1) mg/dl AST (15-37) U/L ALT (12-78) U/L Alkaline Phosphatase (45-117) U/L Troponin I (0-0.045) ng/ml Total Protein (6.4-8.2) gm/dl Albumin (3.4-5.0) gm/dl Globulin (2.5-4.0) gm/dl Albumin/Globulin Ratio (0.9-2) Lipase (73-393) U/L Procalcitonin (0-0.5) ng/ml TSH (0.300-4.500) uIu/ml Urine Color Urine Appearance (Clear) Urine pH (4.5-7.5) Ur Specific [place] (1.000-1.030) Urine Protein (Negative) Urine Glucose (UA) (Negative) Urine Ketones (Negative) Urine Blood (Negative) Urine Nitrite (Negative) Urine Bilirubin (Negative) Urine Urobilinogen (Negative) Ur Leukocyte Esterase (Negative) Salicylates (2.8-20) mg/dl Urine Opiates Screen (Neg) Ur Methadone, Qual (Neg) Acetaminophen (10-30) ug/ml Urine Barbiturates (Neg) Valproic Acid (50-100) mcg/ml Ur Phencyclidine (PCP) (Neg) U Amphetamin/Meth Scrn (Neg) MDMA (Ecstasy) Screen (Neg) U Benzodiazepines Scrn (Neg) Ur Cocaine Metabolite (Neg) U Marijuana (THC) Screen (Neg) Ethyl Alcohol mg/dL (0-3) mg/dl Adenovirus (PCR) Not Detected (NotDetected) B. pertussis DNA (PCR) Not Detected (NotDetected) B.parapertussis DNA PCR Not Detected (NotDetected) C. pneumoniae DNA (PCR) Not Detected (NotDetected) Coronavirus OC43 (PCR) Not Detected (NotDetected) Coronavirus HKU1 (PCR) Not Detected (NotDetected) Coronavirus 229E (PCR) Not Detected (NotDetected) COVID-19 Eval Order COVID-19 PCR Not Detected (Negative) Coronavirus NL63 (PCR) Not Detected (NotDetected) EBV Capsid Ag IgG Ab Pending EBV Capsid Ag IgM Ab Pending EBV EA Restrict+Diffuse Pending EBV Nuclear Antigen Ab Pending EBV Antibody Interp Pending Monoscreen Negative (Negative) Human Metapneumovir PCR Not Detected (NotDetected) Influenza Type A (PCR) Not Detected (NotDetected) Influenza Type B (PCR) Not Detected (NotDetected) M. pneumoniae (PCR) Not Detected (NotDetected) Parainfluenza 1 (PCR) Not Detected (NotDetected) Parainfluenza 2 (PCR) Not Detected (NotDetected) Parainfluenza 3 (PCR) Not Detected (NotDetected) Parainfluenza 4 (PCR) Not Detected (NotDetected) RSV (PCR) Not Detected (NotDetected) Entero/Rhino (PCR) Not Detected (NotDetected) 02/03/20 02/03/20 02/03/20 Range/Units 07:44 07:44 07:44 WBC 17.83 H (4.8-10.8) K/uL RBC 4.52 L (4.7-6.1) M/uL Hgb 13.9 L (14.0-18.0) g/dL Hct 41.3 L (42-52) % MCV 91.4 (80-100) fL MCH 30.8 (25-34) pg MCHC 33.7 (32-36) g/dL RDW Std Deviation 48.5 H (36.4-46.3) fL RDW Coeff of Niko 14.4 (11.5-14.5) % Plt Count 228 (130-400) K/uL MPV 9.7 (7.4-10.4) fL Immature Gran % (Auto) 0.5 % Neut % (Auto) 73.3 % Lymph % (Auto) 13.7 % Isabela % (Auto) 12.1 % Eos % (Auto) 0.3 % Baso % (Auto) 0.1 % Neut # (Auto) 13.07 H (1.4-6.5) K/uL Lymph # (Auto) 2.44 (1.2-3.4) K/uL Isabela # (Auto) 2.15 H (0.11-0.59) K/uL Eos # (Auto) 0.06 (0-0.5) K/uL Baso # (Auto) 0.02 (0-0.2) K/uL Immature Gran # (Auto) 0.09 H (0.00-0.02) K/uL PT 10.5 (9.0-12.0) Seconds INR 1.0 (0.9-1.1) VBG pH (7.36-7.41) VBG pCO2 (38-50) mmHg VBG pO2 mmHg VBG HCO3 mmol/L VBG O2 Saturation % VBG Base Excess mEq/L Barometric Pressure mm/Hg Sodium 136 (136-145) mmol/L Potassium 3.7 (3.5-5.1) mmol/L Chloride 100 (98-107) mmol/L Carbon Dioxide 30 (21-32) mmol/L Anion Gap 6.0 (3-11) BUN 7 (7-18) mg/dl Creatinine 0.60 (0.6-1.4) mg/dl Est Cr Clr Drug Dosing 234.1 ml/min Est GFR ( Amer) 140.7 Est GFR (Non-Af Amer) 121.4 BUN/Creatinine Ratio 11.9 (10-20) Glucose 107 H (70-99) mg/dl Lactate (0.4-2.0) mmol/L Calcium 8.7 (8.5-10.1) mg/dl Total Bilirubin 0.2 (0.2-1) mg/dl AST 7 L (15-37) U/L ALT 13 (12-78) U/L Alkaline Phosphatase 65 (45-117) U/L Troponin I (0-0.045) ng/ml Total Protein 6.9 (6.4-8.2) gm/dl Albumin 2.8 L (3.4-5.0) gm/dl Globulin 4.1 H (2.5-4.0) gm/dl Albumin/Globulin Ratio 0.7 L (0.9-2) Lipase (73-393) U/L Procalcitonin (0-0.5) ng/ml TSH (0.300-4.500) uIu/ml Urine Color Urine Appearance (Clear) Urine pH (4.5-7.5) Ur Specific [place] (1.000-1.030) Urine Protein (Negative) Urine Glucose (UA) (Negative) Urine Ketones (Negative) Urine Blood (Negative) Urine Nitrite (Negative) Urine Bilirubin (Negative) Urine Urobilinogen (Negative) Ur Leukocyte Esterase (Negative) Salicylates (2.8-20) mg/dl Urine Opiates Screen (Neg) Ur Methadone, Qual (Neg) Acetaminophen (10-30) ug/ml Urine Barbiturates (Neg) Valproic Acid (50-100) mcg/ml Ur Phencyclidine (PCP) (Neg) U Amphetamin/Meth Scrn (Neg) MDMA (Ecstasy) Screen (Neg) U Benzodiazepines Scrn (Neg) Ur Cocaine Metabolite (Neg) U Marijuana (THC) Screen (Neg) Ethyl Alcohol mg/dL (0-3) mg/dl Adenovirus (PCR) (NotDetected) B. pertussis DNA (PCR) (NotDetected) B.parapertussis DNA PCR (NotDetected) C. pneumoniae DNA (PCR) (NotDetected) Coronavirus OC43 (PCR) (NotDetected) Coronavirus HKU1 (PCR) (NotDetected) Coronavirus 229E (PCR) (NotDetected) COVID-19 Eval Order COVID-19 PCR (Negative) Coronavirus NL63 (PCR) (NotDetected) EBV Capsid Ag IgG Ab EBV Capsid Ag IgM Ab EBV EA Restrict+Diffuse EBV Nuclear Antigen Ab EBV Antibody Interp Monoscreen (Negative) Human Metapneumovir PCR (NotDetected) Influenza Type A (PCR) (NotDetected) Influenza Type B (PCR) (NotDetected) M. pneumoniae (PCR) (NotDetected) Parainfluenza 1 (PCR) (NotDetected) Parainfluenza 2 (PCR) (NotDetected) Parainfluenza 3 (PCR) (NotDetected) Parainfluenza 4 (PCR) (NotDetected) RSV (PCR) (NotDetected) Entero/Rhino (PCR) (NotDetected) 02/03/20 02/03/20 02/02/20 Range/Units 00:40 00:40 21:50 WBC (4.8-10.8) K/uL RBC (4.7-6.1) M/uL Hgb (14.0-18.0) g/dL Hct (42-52) % MCV (80-100) fL MCH (25-34) pg MCHC (32-36) g/dL RDW Std Deviation (36.4-46.3) fL RDW Coeff of Niko (11.5-14.5) % Plt Count (130-400) K/uL MPV (7.4-10.4) fL Immature Gran % (Auto) % Neut % (Auto) % Lymph % (Auto) % Isabela % (Auto) % Eos % (Auto) % Baso % (Auto) % Neut # (Auto) (1.4-6.5) K/uL Lymph # (Auto) (1.2-3.4) K/uL Isabela # (Auto) (0.11-0.59) K/uL Eos # (Auto) (0-0.5) K/uL Baso # (Auto) (0-0.2) K/uL Immature Gran # (Auto) (0.00-0.02) K/uL PT (9.0-12.0) Seconds INR (0.9-1.1) VBG pH (7.36-7.41) VBG pCO2 (38-50) mmHg VBG pO2 mmHg VBG HCO3 mmol/L VBG O2 Saturation % VBG Base Excess mEq/L Barometric Pressure mm/Hg Sodium (136-145) mmol/L Potassium (3.5-5.1) mmol/L Chloride (98-107) mmol/L Carbon Dioxide (21-32) mmol/L Anion Gap (3-11) BUN (7-18) mg/dl Creatinine (0.6-1.4) mg/dl Est Cr Clr Drug Dosing ml/min Est GFR ( Amer) Est GFR (Non-Af Amer) BUN/Creatinine Ratio (10-20) Glucose (70-99) mg/dl Lactate (0.4-2.0) mmol/L Calcium (8.5-10.1) mg/dl Total Bilirubin (0.2-1) mg/dl AST (15-37) U/L ALT (12-78) U/L Alkaline Phosphatase (45-117) U/L Troponin I (0-0.045) ng/ml Total Protein (6.4-8.2) gm/dl Albumin (3.4-5.0) gm/dl Globulin (2.5-4.0) gm/dl Albumin/Globulin Ratio (0.9-2) Lipase (73-393) U/L Procalcitonin (0-0.5) ng/ml TSH (0.300-4.500) uIu/ml Urine Color Yellow Urine Appearance Clear (Clear) Urine pH 6.0 (4.5-7.5) Ur Specific [place] > 1.045 H (1.000-1.030) Urine Protein Negative (Negative) Urine Glucose (UA) Negative (Negative) Urine Ketones Trace H (Negative) Urine Blood Negative (Negative) Urine Nitrite Negative (Negative) Urine Bilirubin Negative (Negative) Urine Urobilinogen Negative (Negative) Ur Leukocyte Esterase Negative (Negative) Salicylates (2.8-20) mg/dl Urine Opiates Screen Neg (Neg) Ur Methadone, Qual Neg (Neg) Acetaminophen (10-30) ug/ml Urine Barbiturates Neg (Neg) Valproic Acid (50-100) mcg/ml Ur Phencyclidine (PCP) Neg (Neg) U Amphetamin/Meth Scrn Neg (Neg) MDMA (Ecstasy) Screen Neg (Neg) U Benzodiazepines Scrn Neg (Neg) Ur Cocaine Metabolite Neg (Neg) U Marijuana (THC) Screen Neg (Neg) Ethyl Alcohol mg/dL (0-3) mg/dl Adenovirus (PCR) (NotDetected) B. pertussis DNA (PCR) (NotDetected) B.parapertussis DNA PCR (NotDetected) C. pneumoniae DNA (PCR) (NotDetected) Coronavirus OC43 (PCR) (NotDetected) Coronavirus HKU1 (PCR) (NotDetected) Coronavirus 229E (PCR) (NotDetected) COVID-19 Eval Order COVID-19 PCR NEGATIVE (Negative) Coronavirus NL63 (PCR) (NotDetected) EBV Capsid Ag IgG Ab EBV Capsid Ag IgM Ab EBV EA Restrict+Diffuse EBV Nuclear Antigen Ab EBV Antibody Interp Monoscreen (Negative) Human Metapneumovir PCR (NotDetected) Influenza Type A (PCR) (NotDetected) Influenza Type B (PCR) (NotDetected) M. pneumoniae (PCR) (NotDetected) Parainfluenza 1 (PCR) (NotDetected) Parainfluenza 2 (PCR) (NotDetected) Parainfluenza 3 (PCR) (NotDetected) Parainfluenza 4 (PCR) (NotDetected) RSV (PCR) (NotDetected) Entero/Rhino (PCR) (NotDetected) 02/02/20 02/02/20 02/02/20 Range/Units 21:50 20:41 20:18 WBC (4.8-10.8) K/uL RBC (4.7-6.1) M/uL Hgb (14.0-18.0) g/dL Hct (42-52) % MCV (80-100) fL MCH (25-34) pg MCHC (32-36) g/dL RDW Std Deviation (36.4-46.3) fL RDW Coeff of Niko (11.5-14.5) % Plt Count (130-400) K/uL MPV (7.4-10.4) fL Immature Gran % (Auto) % Neut % (Auto) % Lymph % (Auto) % Isabela % (Auto) % Eos % (Auto) % Baso % (Auto) % Neut # (Auto) (1.4-6.5) K/uL Lymph # (Auto) (1.2-3.4) K/uL Isabela # (Auto) (0.11-0.59) K/uL Eos # (Auto) (0-0.5) K/uL Baso # (Auto) (0-0.2) K/uL Immature Gran # (Auto) (0.00-0.02) K/uL PT (9.0-12.0) Seconds INR (0.9-1.1) VBG pH (7.36-7.41) VBG pCO2 (38-50) mmHg VBG pO2 mmHg VBG HCO3 mmol/L VBG O2 Saturation % VBG Base Excess mEq/L Barometric Pressure mm/Hg Sodium (136-145) mmol/L Potassium (3.5-5.1) mmol/L Chloride (98-107) mmol/L Carbon Dioxide (21-32) mmol/L Anion Gap (3-11) BUN (7-18) mg/dl Creatinine (0.6-1.4) mg/dl Est Cr Clr Drug Dosing ml/min Est GFR ( Amer) Est GFR (Non-Af Amer) BUN/Creatinine Ratio (10-20) Glucose (70-99) mg/dl Lactate 1.3 (0.4-2.0) mmol/L Calcium (8.5-10.1) mg/dl Total Bilirubin (0.2-1) mg/dl AST (15-37) U/L ALT (12-78) U/L Alkaline Phosphatase (45-117) U/L Troponin I (0-0.045) ng/ml Total Protein (6.4-8.2) gm/dl Albumin (3.4-5.0) gm/dl Globulin (2.5-4.0) gm/dl Albumin/Globulin Ratio (0.9-2) Lipase (73-393) U/L Procalcitonin 0.17 (0-0.5) ng/ml TSH (0.300-4.500) uIu/ml Urine Color Urine Appearance (Clear) Urine pH (4.5-7.5) Ur Specific [place] (1.000-1.030) Urine Protein (Negative) Urine Glucose (UA) (Negative) Urine Ketones (Negative) Urine Blood (Negative) Urine Nitrite (Negative) Urine Bilirubin (Negative) Urine Urobilinogen (Negative) Ur Leukocyte Esterase (Negative) Salicylates (2.8-20) mg/dl Urine Opiates Screen (Neg) Ur Methadone, Qual (Neg) Acetaminophen (10-30) ug/ml Urine Barbiturates (Neg) Valproic Acid (50-100) mcg/ml Ur Phencyclidine (PCP) (Neg) U Amphetamin/Meth Scrn (Neg) MDMA (Ecstasy) Screen (Neg) U Benzodiazepines Scrn (Neg) Ur Cocaine Metabolite (Neg) U Marijuana (THC) Screen (Neg) Ethyl Alcohol mg/dL (0-3) mg/dl Adenovirus (PCR) (NotDetected) B. pertussis DNA (PCR) (NotDetected) B.parapertussis DNA PCR (NotDetected) C. pneumoniae DNA (PCR) (NotDetected) Coronavirus OC43 (PCR) (NotDetected) Coronavirus HKU1 (PCR) (NotDetected) Coronavirus 229E (PCR) (NotDetected) COVID-19 Eval Order Covid19 Done at [facility] COVID-19 PCR (Negative) Coronavirus NL63 (PCR) (NotDetected) EBV Capsid Ag IgG Ab EBV Capsid Ag IgM Ab EBV EA Restrict+Diffuse EBV Nuclear Antigen Ab EBV Antibody Interp Monoscreen (Negative) Human Metapneumovir PCR (NotDetected) Influenza Type A (PCR) (NotDetected) Influenza Type B (PCR) (NotDetected) M. pneumoniae (PCR) (NotDetected) Parainfluenza 1 (PCR) (NotDetected) Parainfluenza 2 (PCR) (NotDetected) Parainfluenza 3 (PCR) (NotDetected) Parainfluenza 4 (PCR) (NotDetected) RSV (PCR) (NotDetected) Entero/Rhino (PCR) (NotDetected) 02/02/20 02/02/20 02/02/20 Range/Units 20:16 20:07 20:07 WBC (4.8-10.8) K/uL RBC (4.7-6.1) M/uL Hgb (14.0-18.0) g/dL Hct (42-52) % MCV (80-100) fL MCH (25-34) pg MCHC (32-36) g/dL RDW Std Deviation (36.4-46.3) fL RDW Coeff of Niko (11.5-14.5) % Plt Count (130-400) K/uL MPV (7.4-10.4) fL Immature Gran % (Auto) % Neut % (Auto) % Lymph % (Auto) % [place] % (Auto) % Eos % (Auto) % Baso % (Auto) % Neut # (Auto) (1.4-6.5) K/uL Lymph # (Auto) (1.2-3.4) K/uL [place] # (Auto) (0.11-0.59) K/uL Eos # (Auto) (0-0.5) K/uL Baso # (Auto) (0-0.2) K/uL Immature Gran # (Auto) (0.00-0.02) K/uL PT (9.0-12.0) Seconds INR (0.9-1.1) VBG pH 7.44 H (7.36-7.41) VBG pCO2 44 (38-50) mmHg VBG pO2 32 mmHg VBG HCO3 29 mmol/L VBG O2 Saturation 63.4 % VBG Base Excess 4.4 mEq/L Barometric Pressure 734.3 mm/Hg Sodium (136-145) mmol/L Potassium (3.5-5.1) mmol/L Chloride (98-107) mmol/L Carbon Dioxide (21-32) mmol/L Anion Gap (3-11) BUN (7-18) mg/dl Creatinine (0.6-1.4) mg/dl Est Cr Clr Drug Dosing ml/min Est GFR ( Amer) Est GFR (Non-Af Amer) BUN/Creatinine Ratio (10-20) Glucose (70-99) mg/dl Lactate (0.4-2.0) mmol/L Calcium (8.5-10.1) mg/dl Total Bilirubin (0.2-1) mg/dl AST (15-37) U/L ALT (12-78) U/L Alkaline Phosphatase (45-117) U/L Troponin I (0-0.045) ng/ml Total Protein (6.4-8.2) gm/dl Albumin (3.4-5.0) gm/dl Globulin (2.5-4.0) gm/dl Albumin/Globulin Ratio (0.9-2) Lipase (73-393) U/L Procalcitonin (0-0.5) ng/ml TSH (0.300-4.500) uIu/ml Urine Color Urine Appearance (Clear) Urine pH (4.5-7.5) Ur Specific [place] (1.000-1.030) Urine Protein (Negative) Urine Glucose (UA) (Negative) Urine Ketones (Negative) Urine Blood (Negative) Urine Nitrite (Negative) Urine Bilirubin (Negative) Urine Urobilinogen (Negative) Ur Leukocyte Esterase (Negative) Salicylates 2.1 L (2.8-20) mg/dl Urine Opiates Screen (Neg) Ur Methadone, Qual (Neg) Acetaminophen < 2 L (10-30) ug/ml Urine Barbiturates (Neg) Valproic Acid 114 H (50-100) mcg/ml Ur Phencyclidine (PCP) (Neg) U Amphetamin/Meth Scrn (Neg) MDMA (Ecstasy) Screen (Neg) U Benzodiazepines Scrn (Neg) Ur Cocaine Metabolite (Neg) U Marijuana (THC) Screen (Neg) Ethyl Alcohol mg/dL < 3.0 (0-3) mg/dl Adenovirus (PCR) (NotDetected) B. pertussis DNA (PCR) (NotDetected) B.parapertussis DNA PCR (NotDetected) C. pneumoniae DNA (PCR) (NotDetected) Coronavirus OC43 (PCR) (NotDetected) Coronavirus HKU1 (PCR) (NotDetected) Coronavirus 229E (PCR) (NotDetected) COVID-19 Eval Order COVID-19 PCR (Negative) Coronavirus NL63 (PCR) (NotDetected) EBV Capsid Ag IgG Ab EBV Capsid Ag IgM Ab EBV EA Restrict+Diffuse EBV Nuclear Antigen Ab EBV Antibody Interp Monoscreen (Negative) Human Metapneumovir PCR (NotDetected) Influenza Type A (PCR) (NotDetected) Influenza Type B (PCR) (NotDetected) M. pneumoniae (PCR) (NotDetected) Parainfluenza 1 (PCR) (NotDetected) Parainfluenza 2 (PCR) (NotDetected) Parainfluenza 3 (PCR) (NotDetected) Parainfluenza 4 (PCR) (NotDetected) RSV (PCR) (NotDetected) Entero/Rhino (PCR) (NotDetected) 02/02/20 02/02/20 Range/Units 20:07 20:07 WBC 21.43 H (4.8-10.8) K/uL RBC 4.58 L (4.7-6.1) M/uL Hgb 14.3 (14.0-18.0) g/dL Hct 42.0 (42-52) % MCV 91.7 (80-100) fL MCH 31.2 (25-34) pg MCHC 34.0 (32-36) g/dL RDW Std Deviation 48.1 H (36.4-46.3) fL RDW Coeff of Niko 14.3 (11.5-14.5) % Plt Count 229 (130-400) K/uL MPV 9.5 (7.4-10.4) fL Immature Gran % (Auto) 0.6 % Neut % (Auto) 80.3 % Lymph % (Auto) 10.2 % Isabel[place] % (Auto) 8.9 % Eos % (Auto) 0.0 % Baso % (Auto) 0.0 % Neut # (Auto) 17.19 H (1.4-6.5) K/uL Lymph # (Auto) 2.18 (1.2-3.4) K/uL [place] # (Auto) 1.91 H (0.11-0.59) K/uL Eos # (Auto) 0.01 (0-0.5) K/uL Baso # (Auto) 0.01 (0-0.2) K/uL Immature Gran # (Auto) 0.13 H (0.00-0.02) K/uL PT (9.0-12.0) Seconds INR (0.9-1.1) VBG pH (7.36-7.41) VBG pCO2 (38-50) mmHg VBG pO2 mmHg VBG HCO3 mmol/L VBG O2 Saturation % VBG Base Excess mEq/L Barometric Pressure mm/Hg Sodium 133 L (136-145) mmol/L Potassium 3.8 (3.5-5.1) mmol/L Chloride 97 L (98-107) mmol/L Carbon Dioxide 29 (21-32) mmol/L Anion Gap 7.0 (3-11) BUN 10 (7-18) mg/dl Creatinine 0.78 (0.6-1.4) mg/dl Est Cr Clr Drug Dosing 182.3 ml/min Est GFR ( Amer) 126.3 Est GFR (Non-Af Amer) 109.0 BUN/Creatinine Ratio 13.1 (10-20) Glucose 126 H (70-99) mg/dl Lactate (0.4-2.0) mmol/L Calcium 9.2 (8.5-10.1) mg/dl Total Bilirubin 0.2 (0.2-1) mg/dl AST 8 L (15-37) U/L ALT 15 (12-78) U/L Alkaline Phosphatase 69 (45-117) U/L Troponin I < 0.015 (0-0.045) ng/ml Total Protein 7.2 (6.4-8.2) gm/dl Albumin 3.1 L (3.4-5.0) gm/dl Globulin 4.1 H (2.5-4.0) gm/dl Albumin/Globulin Ratio 0.8 L (0.9-2) Lipase 77 (73-393) U/L Procalcitonin (0-0.5) ng/ml TSH 0.454 (0.300-4.500) uIu/ml Urine Color Urine Appearance (Clear) Urine pH (4.5-7.5) Ur Specific [place] (1.000-1.030) Urine Protein (Negative) Urine Glucose (UA) (Negative) Urine Ketones (Negative) Urine Blood (Negative) Urine Nitrite (Negative) Urine Bilirubin (Negative) Urine Urobilinogen (Negative) Ur Leukocyte Esterase (Negative) Salicylates (2.8-20) mg/dl Urine Opiates Screen (Neg) Ur Methadone, Qual (Neg) Acetaminophen (10-30) ug/ml Urine Barbiturates (Neg) Valproic Acid (50-100) mcg/ml Ur Phencyclidine (PCP) (Neg) U Amphetamin/Meth Scrn (Neg) MDMA (Ecstasy) Screen (Neg) U Benzodiazepines Scrn (Neg) Ur Cocaine Metabolite (Neg) U Marijuana (THC) Screen (Neg) Ethyl Alcohol mg/dL (0-3) mg/dl Adenovirus (PCR) (NotDetected) B. pertussis DNA (PCR) (NotDetected) B.parapertussis DNA PCR (NotDetected) C. pneumoniae DNA (PCR) (NotDetected) Coronavirus OC43 (PCR) (NotDetected) Coronavirus HKU1 (PCR) (NotDetected) Coronavirus 229E (PCR) (NotDetected) COVID-19 Eval Order COVID-19 PCR (Negative) Coronavirus NL63 (PCR) (NotDetected) EBV Capsid Ag IgG Ab EBV Capsid Ag IgM Ab EBV EA Restrict+Diffuse EBV Nuclear Antigen Ab EBV Antibody Interp Monoscreen (Negative) Human Metapneumovir PCR (NotDetected) Influenza Type A (PCR) (NotDetected) Influenza Type B (PCR) (NotDetected) M. pneumoniae (PCR) (NotDetected) Parainfluenza 1 (PCR) (NotDetected) Parainfluenza 2 (PCR) (NotDetected) Parainfluenza 3 (PCR) (NotDetected) Parainfluenza 4 (PCR) (NotDetected) RSV (PCR) (NotDetected) Entero/Rhino (PCR) (NotDetected) PG Care Time/CCT Total # of Minutes Spent Total Time Spent with Patient: Total time spent is greater than 50% in coordination of care (as documented) at patient's floor/unit and/or counseling patient: Coding Level of Care Code None Diagnoses Febrile illness R50.9 Altered mental status R41.82 Anxiety F41.9 Depression F32.9 Hyperlipidemia E78.5 HTN (hypertension) I10 Bipolar disorder F31.9 Homelessness Z59.0 Sore throat J02.9 Acute respiratory failure with hypoxia J96.01 Obesity E66.9 Abnormal ECG R94.31 Hyponatremia E87.1 DVT prophylaxis Z29.9
[2020-02-03] MEDS: cefTRIAXone SODIUM 2,000 MG in DEXTROSE 5% 50 ML IV SCH (14:39)
[2020-02-03] MEDS: CETIRIZINE HCL 10 MG TABLET PO SCH (14:39)
[2020-02-03] MEDS: FLUTICASONE PROPIONATE NA SPR 16 GM BTL SCH (14:39)
[2020-02-03] MEDS ORDERED: MIRTAZAPINE TAB 15 MG TAB PO SCH (21:00)
[2020-02-03] MEDS ORDERED: ATORVASTATIN 40 MG TAB PO SCH (21:00)
[2020-02-04] MEDS: HEPARIN SOD 5,000 UNIT/0.5 ML VIAL SQ SCH (06:27)
[2020-02-04 06:35] LABS: Basophils # (auto) 0.02 K/uL (0-0.2); Basophils % (auto) 0.2 %; Eosinophils % (auto) 1.7 %; Hematocrit (blood only) 43.5 % (42-52); Hemoglobin 14.2 g/dL (14.0-18.0); Immature Granulocytes # (auto) 0.08 K/uL (0.00-0.02); Immature Granulocytes % (auto) 0.7 %; Lymphocytes # (auto) 3.11 K/uL (1.2-3.4); Mean Corpuscular Hemoglobin 30.4 pg (25-34); Mean Corpuscular Hgb Conc 32.6 g/dL (32-36); Mean Corpuscular Volume 93.1 fL (80-100); Mean Platelet Volume 9.6 fL (7.4-10.4); Monocytes # (auto) 1.35 K/uL (0.11-0.59); Monocytes % (auto) 11.7 %; Neutrophils # (auto) 6.75 K/uL (1.4-6.5); Neutrophils % (auto) 58.7 %; Platelet Count 251 K/uL (130-400); RDW Coefficient of Variation 14.3 % (11.5-14.5); RDW Standard Deviation 48.5 fL (36.4-46.3); Red Blood Count 4.67 M/uL (4.7-6.1); White Blood Count 11.51 K/uL (4.8-10.8)
[2020-02-04 07:08] LABS: Albumin Level 2.8 gm/dl (3.4-5.0); BUN Creatinine Ratio 17.9 (10-20); Calcium 8.8 mg/dl (8.5-10.1); Est GFR (African American) 141.7; Est GFR (Non-African American) 122.3; Potassium 3.8 mmol/L (3.5-5.1)
[2020-02-04 07:11] LABS: Albumin Globulin Ratio 0.7 (0.9-2); Bilirubin,Total 0.3 mg/dl (0.2-1); Globulin 4.2 gm/dl (2.5-4.0)
[2020-02-04] MEDS: cefTRIAXone SODIUM 2,000 MG in DEXTROSE 5% 50 ML IV SCH ×2 (08:08→08:18)
[2020-02-04] MEDS: lisinopriL 10 MG TAB PO SCH (08:09)
[2020-02-04] MEDS: CETIRIZINE HCL 10 MG TABLET PO SCH (08:09)
[2020-02-04] MEDS: DIVALPROEX DELAY RELEASE 500 MG TAB PO SCH (08:09)
[2020-02-04] MEDS: haloperidoL 5 MG TAB PO SCH (08:09)
[2020-02-04] MEDS: FLUTICASONE PROPIONATE NA SPR 16 GM BTL SCH (08:14)
[2020-02-04] MEDS: FOLIC ACID 1 MG TAB PO SCH (08:14)
[2020-02-04] MEDS: VENLAFAXINE HCL XR 150 MG CAPXR PO SCH (08:14)
--- NOTE | 2020-02-04 08:36 | Discharge Summary ---
Date of Service February 04, 2020 Admission HPI Per Admitting Provider The patient is a 44-year-old male with a past medical history including anxiety, depression, hyperlipidemia, agitation, insomnia, and hypertension. He presents as noted above. He is homeless, denies any recent falls or injuries. He reportedly had taken a dose of Haldol and clonazepam prior to arrival to the emergency department, and at the time of my assessment was very sedated and difficult to arouse. Principal Diagnosis Group A strep pharyngitis, febrile illness Nocturnal hypoxemia Discharge Exam Constitutional WD/WN, vitals as above + morbidly obese Eyes PERRL, conjunctivae normal, anicteric sclerae ENMT Ears: no hearing impairment and no external ear abnormality Nose: no external nose abnormality, no nasal discharge and no facial edema Mouth: + oropharynx abnormality (Erythematous posterior oropharynx with several white circular lesions, very large tongue); no lip abnormality and no tongue abnormality Neck trachea midline, no thyromegaly Respiratory normal respiratory effort, lungs clear to auscultation Cardiovascular RRR, no murmur, no edema Chest (Breasts) Chest: normal inspection of chest Gastrointestinal (Abdomen) normal bowel sounds, soft, nontender, no hepatosplenomegaly Musculoskeletal Extremities: extremities normal to inspection; no cyanosis and no clubbing Skin no rashes, warm and dry Neurologic no focal motor deficits Psychiatric A+Ox3, euthymic affect Lymphatic no lymphedema Discharge Data Allergies Allergy/AdvReac Type Severity Reaction Status Date / Time No Known Allergies Allergy Verified 02/02/20 21:43 Consultations 02/02/20 23:08 ED Decision to Admit Stat 02/03/20 01:01 Consult Case Management - Discharge Planning Routine Ordered Studies 02/02/20 19:57 CT head/brain wo con Urgent 02/02/20 20:01 CT angio chest PE protocol Urgent 02/02/20 20:37 CT abd pelvis IV con only Urgent Chest x-ray Hospital Course (1) Febrile illness: Presented with fatigue, shortness of breath, leukocytosis, and fever. He was thought initially to have significant lethargy related to either acute illness versus medication induced Also with development of sore throat with white exudate the day after admission after he was more awake and alert and was able to relay this COVID-19-, bio fire viral respiratory panel negative, rapid strep antigen test is negative and throat culture now positive for group A strep after discharge, Monospot negative Blood cultures-no growth to date Urinalysis negative Chest x-ray negative, CT of the chest/abdomen/pelvis with angiogram portion of the chest all negative for acute infection Procalcitonin mildly elevated at 0.17 He had significantly elevated leukocytosis with neutrophilia predominance with improvement on IV antibiotics with a single dose of cefepime in the ER and then was continued on IV ceftriaxone. Leukocytosis is now improving, afebrile x36 hours, blood cultures remain no growth -DC to home to finish out a 10-day course of amoxicillin -Continue to follow blood cultures after discharge (2) Acute streptococcal pharyngitis: As above (3) Altered mental status: Acute metabolic encephalopathy-secondary to acute infection in the setting of taking Haldol and clonazepam Mental status is significantly improved and was quite lucid on the day of discharge (4) Anxiety: Continue home medications as he was just discharged from an inpatient psychiatric stay Of note, he reports he is no longer taking Risperdal -Continue home Depakote, Haldol, hydroxyzine, mirtazapine, and venlafaxine (5) Depression: Stable, Continue meds as above (6) Hyperlipidemia: Continue atorvastatin (7) HTN (hypertension): Blood pressures are acceptable -Continue home lisinopril (8) Bipolar disorder: As above Continue Depakote (9) Homelessness: Gets mcc from local out of the [place] homeless program Case management is involved (10) Acute respiratory failure with hypoxia: Was requiring oxygen through the night, with loud snoring noted -Checked overnight sleep study which clearly showed he qualified for nocturnal oxygen, however unfortunately as he has no home address, this could not be obtained for him through our case management department. He says that he will be establishing a permanent residence in the near future and will have a correctional casework specialist. He will get established with a primary care physician and will need a referral for a formal sleep study at that time to qualify for CPAP versus nocturnal O2 -Started Zyrtec, FLonase which should also significantly improve his snoring and perhaps improve his hypoxemia (11) Obesity: BMI 44.8 Needs counseling on weight loss Has fatty liver (12) Abnormal ECG: ECG with some nonspecific abnormalities with T wave inversions in the anterior leads He denies any chest pain, troponin was negative No further work-up needed (13) Hyponatremia: Sodium mildly low at 133 on admission Received fluids and was normalized No further evaluation needed (14) DVT prophylaxis: Heparin SQ was provided Disposition-stable for discharge Total Time Total Time Spent Total Time Spent (In Minutes): 35 minutes Total Time Includes: Examination of the Patient, Discharge Planning and Medication Reconciliation Discharge Plan Discharge Items Patient Disposition: Home - Self-Care Reason For Visit: FEBRILE ILLNESS, ALTERED MENTAL STATUS Discharge Diagnosis: Pharyngitis, Fever, Nocturnal hypoxemia Condition on Discharge: Good Activity: Resume your previous activity Bathing: No limitations Exercise/Sports: Gradually increase as tolerated Non-emergency contact: Primary Care Provider Call non-emergency contact if: you have any medication questions, your symptoms worsen, your pain is not controlled, your pain is worsening, you have a fever and your temperature is above 101 Follow-up/Referrals: PCP,NO [Primary Care Provider] - Diet: Heart Healthy Addtl Attending Provider Instructions: Please finish out the course of amoxicillin for your throat and sinus infection. You should continue taking Zyrtec once daily and Flonase for your chronic nasal congestion related to allergies. You do qualify for wearing oxygen at nighttime, but we are not able to provide this to you at this time until you have a permanent place of residence. Once th is happens, your correctional casework specialist can help get you set up with a primary care physician to order the oxygen for you. You may need to repeat the overnight sleep study at that point. Pending Studies at Discharge: Yes (Blood cultures, throat culture) Stand-Alone Forms: My [facility] [employer], Smoking Cessation Medications and DC Order Prescriptions: New cetirizine 10 mg Tablet 10 mg PO QAM Qty: 30 RF: 0 fluticasone propionate 50 mcg/actuation [place],Suspension 2 spray NA DAILY Qty: 16 RF: 0 amoxicillin 500 mg tablet 500 mg PO Q8H Qty: 24 RF: 0 Continued divalproex [Depakote ER] 500 mg Tablet Extended Release 24 Hr 1,500 mg PO BID RF: 0 venlafaxine [Effexor XR] 150 mg Capsule,Extended Release 24hr 150 mg PO DAILY RF: 0 atorvastatin 40 mg tablet 40 mg PO HS RF: 0 haloperidol 10 mg tablet 10 mg PO BID RF: 0 clonazepam 1 mg tablet 0.5 - 1 mg PO DAILY PRN (Reason: Anxiety) RF: 0 hydroxyzine HCl 50 mg tablet 50 mg PO TID RF: 0 lisinopril 10 mg tablet 10 mg PO DAILY RF: 0 folic acid 1 mg tablet 1 mg PO DAILY RF: 0 mirtazapine 15 mg tablet 15 mg PO HS RF: 0 Discharge Orders: Discharge Order (Routine); Ordered 02/04/20 Ordered By: Imelda Denton Admission Data Admit Date/Time: 02/03/20 00:04 Attending Provider: Imelda Denton Admit Provider: Chucho Geronimo Primary Care Provider: PCP,MATTHEW Other Providers: Chucho Geronimo Other Interventions: Discharge Summary Assessment (RN) Last Done: 02/04/20 08:45 Coding Level of Care Code 25533 OBS Care - Discharge Diagnoses Febrile illness R50.9 Acute streptococcal pharyngitis J02.0 Altered mental status R41.82 Anxiety F41.9 Depression F32.9 Hyperlipidemia E78.5 HTN (hypertension) I10 Bipolar disorder F31.9 Homelessness Z59.0 Acute respiratory failure with hypoxia J96.01 Obesity E66.9 Abnormal ECG R94.31 Hyponatremia E87.1 DVT prophylaxis Z29.9
[2020-02-05 13:16] LABS: Epstein Barr Virus Early Ag Ab <9.00 U/mL
--- NOTE | 2020-02-14 14:26 | Coding Query ---
A supporting diagnosis is required for the test/procedure performed on this patient in order for us to be reimbursed by the patient's insurance. Please provide a supporting diagnosis for the following test/procedure listed below next to the test name along with your signature. *If there is no additional diagnosis for this patient that would support the following test/procedure please document that below next to the test/procedure. Test(s)/Procedure(s) that require a supporting diagnosis: Oximetry DIAGNOSIS:___Nocturnal hypoxemia Provider Signature: ____Imelda Denton MD Date: _02/17/20 Thank you Stephanie Onela [facility] Information Management Once completed, please kindly fax back to [phone] For questions please call [phone] ROMAN
== END 2020-02-04 09:36 | disposition home or self-care (01) ==
LOC: ED 19:11 → SUATTDRO 02-03 00:04 → 2W 02-03 00:04 → INTOOBSV 02-03 00:04 → 2W 02-03 00:36

== ENCOUNTER 2021-11-11 21:38 | Observation (INO) ==
--- NOTE | 2021-11-11 21:57 | Emergency Department Note ---
Impression & Plan Acute hyponatremia, Bipolar disorder, Depression ED Provider Note NAME: PEDRO OSORIO AGE: 46 SEX: M : 1975 ARRIVES VIA: Ambulance INFORMANT: Patient, ED PROVIDER(S): Pedro Elizondo DO CHIEF COMPLAINT: Mental health evaluation HPI: The patient is a 46-year-old male who presented to the emergency department for an evaluation of mental health issues. The patient states that he has had severe depression. The patient is requesting to be evaluated for a 201 admission. He states he has been compliant with his outpatient medications. He does not have any suicidal ideation but he has been hearing voices. The patient denies having any fever or coughing. The patient denies having any recent trauma. The patient states he lives in a very small studio apartment. He has been having problems recently with people taking advantage of him. ROS: See above HPI for pertinent positives & negatives. A total of 10 systems reviewed and were otherwise negative. PAST MEDICAL HISTORY: See Below PAST SURGICAL HISTORY: See Below FAMILY HISTORY: See Below SOCIAL HISTORY: See Below HOME MEDICATIONS: See Below ALLERGIES: See Below VITALS: See Below PHYSICAL EXAMINATION: GENERAL: Patient is awake and alert. The patient is somewhat guarded but comfortable appearing. EYES: The conjunctivae are clear. The pupils are round and reactive. EARS, NOSE, MOUTH AND THROAT: The nose is without any evidence of any deformity. NECK: The neck is nontender and supple. RESPIRATORY: Normal respiratory effort is noted there is no evidence of wheezing rhonchi or rales CARDIOVASCULAR: Regular rate and rhythm noted there no murmurs rubs or gallops normal S1 normal S2. GASTROINTESTINAL: The abdomen is soft. Abdomen is nontender. MUSCULOSKELETAL/EXTREMITIES: There is no evidence of gross deformity full range of motion is noted in the hips and shoulders. SKIN: Trace pedal edema was noted bilaterally. Skin was warm and dry. NEUROLOGIC: Patient is awake alert and oriented x3. Gait was steady. PSYCH: The patient makes poor eye contact. His affect is flat. He is currently denying any suicidal or homicidal ideation. MEDICAL DECISION MAKING: The patient is a 46-year-old male who presented to the emergency department for mental health evaluation. The patient was a voluntary mental health evaluation. He was complaining of problems with depression. He was complaining of hearing voices. He states has been compliant with his outpatient medications. I discussed patient's laboratory results with him. He was unable to be medically cleared as his sodium was very low. He is not overly symptomatic with this hyponatremia however he would not be able to be excepted at a mental health facility until this has been addressed. This reason I discussed his case with the on-call [facility] hospitalist group. They have agreed to evaluate the patient in the emergency department for further management and disposition. Triage Nursing notes reviewed. Prior medical records reviewed Vital Signs: reviewed and remarkable for no significant abnormalities Differential diagnosis: Mood disorder, infection, hypoglycemia, electrolyte abnormalities, cardiac sourc es, intracerebral event, toxicologic, trauma, neurologic, as well as other pathologies. ER treatment provided: See below Diagnostics interpreted by me: ECG: EKG was obtained in the emergency department. My interpretation is normal sinus rhythm at 71 bpm. There is no ectopy. Diffuse T wave inversions were noted. There was no PVCs. This was compared to a tracing from July 16, 2021. No changes were noted. Laboratory studies: As stated above and show below. Imaging studies: See below Consultation(s): I discussed this case with Dr. Flood who is on-call for the [facility] hospitalist group. Past Med/Surg History Medical History Bipolar disorder Depression with suicidal ideation Homelessness HTN (hypertension) Hyperlipidemia Methamphetamine addiction Surgical History No pertinent past surgical history Family History Other No pertinent family history Social History Smoking Status: Current every day smoker Tobacco Type: Cigarettes Hx Alcohol Use: Yes Hx Substance Use: Yes Substance Use Type Other:: pt too lethargic to answer Preferred Language: Afghan Communication Ability: Effective Beliefs That Will Affect Care: None marital status: Single Current Living Situation: Homeless Feels Safe at Home: Yes Assistive Devices: None Allergies Allergies Allergy/AdvReac Type Severity Reaction Status Date / Time aripiprazole [From Abilify] AdvReac Agitated Verified 11/11/21 22:35 Home Meds Home Medications Medication Instructions Recorded Confirmed divalproex 500 mg tablet,extended 1,500 mg PO BID 06/16/19 11/11/21 release 24 hr (Depakote ER) venlafaxine 150 mg 150 mg PO DAILY 06/16/19 11/11/21 capsule,extended release 24 hr (Effexor XR) lisinopril 10 mg tablet 10 mg PO DAILY 01/19/20 11/11/21 mirtazapine 15 mg tablet 15 mg PO HS 01/19/20 11/11/21 ziprasidone HCl 40 mg capsule 40 mg PO BID 08/06/20 11/11/21 buspirone 10 mg tablet 10 mg PO TID 08/15/20 11/11/21 clonazepam 1 mg tablet 1 mg PO BID 04/17/21 11/11/21 ibuprofen 600 mg tablet 600 mg PO BID 04/17/21 11/11/21 methadone 10 mg tablet 40 mg PO DAILY 07/16/21 11/11/21 Results & Data (ED) Vital Signs Vital Signs - 24 hr 11/11/21 21:47 Temperature 36.4 C L Temperature Source Oral Pulse Rate 84 Respiratory Rate 20 Respiratory Effort / Characteristics Non-Labored Spontaneous Respiratory Depth Normal Blood Pressure 140/100 Blood Pressure Mean 113 Pulse Oximetry 91 Oxygen Delivery Method Room Air Sepsis New/Unexplained Change in Mental Status N/A Sepsis Action Taken by Nursing No Action Required Home Medications Current Medication List: was personally reviewed by me Laboratory Data Attestation: I reviewed the patient's lab results. Result diagrams: 11/11/21 22:12 11/11/21 22:12 Lab Results 11/11/21 11/11/21 11/11/21 Range/Units 22:12 22:12 22:12 WBC 11.38 H (4.8-10.8) K/uL RBC 5.30 (4.7-6.1) M/uL Hgb 15.9 (14.0-18.0) g/dL Hct 47.0 (42-52) % MCV 88.7 (80-100) fL MCH 30.0 (25-34) pg MCHC 33.8 (32-36) g/dL RDW Std Deviation 47.2 H (36.4-46.3) fL RDW Coeff of Niko 14.6 H (11.5-14.5) % Plt Count 322 (130-400) K/uL MPV 9.2 (7.4-10.4) fL Neutrophils % (Manual) 42.7 % Lymphocytes % (Manual) 22.2 % Reactive Lymphs % (Man) 22.2 % Monocytes % (Manual) 7.7 % Eosinophils % (Manual) 2.6 % Metamyelocytes % (Man) 1.7 % Myelocytes % (Man) 0.9 % Neutrophils # (Manual) 4.86 (1.4-6.5) K/uL Total Absolute Neuts 4.86 (1.4-6.5) K/uL Lymphocytes # (Manual) 2.53 (1.2-3.4) K/uL Reactive Lymphs # 2.53 K/uL Total Abs Lymphocytes 5.05 H (1.2-3.4) K/uL Monocytes # (Manual) 0.88 H (0.11-0.59) K/uL Eosinophils # (Manual) 0.30 (0-0.5) K/uL Metamyelocytes # (Man) 0.19 H (0-0) K/uL Myelocytes # (Manual) 0.10 H (0-0) K/uL RBC Morphology Unremarkable Sodium 126 L (136-145) mmol/L Potassium 4.0 (3.5-5.1) mmol/L Chloride 91 L (98-107) mmol/L Carbon Dioxide 29 (21-32) mmol/L Anion Gap 6 (3-11) BUN 7 (6-23) mg/dl Creatinine 0.62 (0.6-1.4) mg/dl Est Cr Clr Drug Dosing 222.0 ml/min Est GFR ( Amer) 136.9 ml/min Est GFR (Non-Af Amer) 118.1 ml/min BUN/Creatinine Ratio 11.3 (10-20) Glucose 89 (70-99(Fasting)) mg/dl Calcium 9.5 (8.5-10.1) mg/dl Total Bilirubin 0.3 (0.2-1.0) mg/dl AST 15 (13-39) U/L ALT 12 (7-52) U/L Alkaline Phosphatase 68 (34-104) U/L Total Protein 7.6 (6.0-8.3) gm/dl Albumin 4.1 (3.4-5.0) gm/dl Globulin 3.5 (2.5-4.0) gm/dl Albumin/Globulin Ratio 1.2 (0.9-2) TSH 5.387 H (0.300-4.500) uIu/ml Urine Color Urine Appearance (Clear) Urine pH (4.5-7.5) Ur Specific Gordon (1.000-1.030) Urine Protein (Negative) Urine Glucose (UA) (Negative) Urine Ketones (Negative) Urine Blood (Negative) Urine Nitrite (Negative) Urine Bilirubin (Negative) Urine Urobilinogen (Negative) Ur Leukocyte Esterase (Negative) Salicylates (3.0-30) mg/dl Acetaminophen (10-30) ug/ml Valproic Acid (50-100) mcg/ml Ethyl Alcohol mg/dL (<10.0) mg/dl SARS-CoV-2, RNA, NAAT (NEGATIVE) 11/11/21 11/11/21 11/11/21 Range/Units 22:12 22:12 22:12 WBC (4.8-10.8) K/uL RBC (4.7-6.1) M/uL Hgb (14.0-18.0) g/dL Hct (42-52) % MCV (80-100) fL MCH (25-34) pg MCHC (32-36) g/dL RDW Std Deviation (36.4-46.3) fL RDW Coeff of Niko (11.5-14.5) % Plt Count (130-400) K/uL MPV (7.4-10.4) fL Neutrophils % (Manual) % Lymphocytes % (Manual) % Reactive Lymphs % (Man) % Monocytes % (Manual) % Eosinophils % (Manual) % Metamyelocytes % (Man) % Myelocytes % (Man) % Neutrophils # (Manual) (1.4-6.5) K/uL Total Absolute Neuts (1.4-6.5) K/uL Lymphocytes # (Manual) (1.2-3.4) K/uL Reactive Lymphs # K/uL Total Abs Lymphocytes (1.2-3.4) K/uL Monocytes # (Manual) (0.11-0.59) K/uL Eosinophils # (Manual) (0-0.5) K/uL Metamyelocytes # (Man) (0-0) K/uL Myelocytes # (Manual) (0-0) K/uL RBC Morphology Sodium (136-145) mmol/L Potassium (3.5-5.1) mmol/L Chloride (98-107) mmol/L Carbon Dioxide (21-32) mmol/L Anion Gap (3-11) BUN (6-23) mg/dl Creatinine (0.6-1.4) mg/dl Est Cr Clr Drug Dosing ml/min Est GFR ( Amer) ml/min Est GFR (Non-Af Amer) ml/min BUN/Creatinine Ratio (10-20) Glucose (70-99(Fasting)) mg/dl Calcium (8.5-10.1) mg/dl Total Bilirubin (0.2-1.0) mg/dl AST (13-39) U/L ALT (7-52) U/L Alkaline Phosphatase (34-104) U/L Total Protein (6.0-8.3) gm/dl Albumin (3.4-5.0) gm/dl Globulin (2.5-4.0) gm/dl Albumin/Globulin Ratio (0.9-2) TSH (0.300-4.500) uIu/ml Urine Color Urine Appearance (Clear) Urine pH (4.5-7.5) Ur Specific Gordon (1.000-1.030) Urine Protein (Negative) Urine Glucose (UA) (Negative) Urine Ketones (Negative) Urine Blood (Negative) Urine Nitrite (Negative) Urine Bilirubin (Negative) Urine Urobilinogen (Negative) Ur Leukocyte Esterase (Negative) Salicylates < 3.0 L (3.0-30) mg/dl Acetaminophen < 3 L (10-30) ug/ml Valproic Acid 87 (50-100) mcg/ml Ethyl Alcohol mg/dL < 10.0 (<10.0) mg/dl SARS-CoV-2, RNA, NAAT NEGATIVE (NEGATIVE) 11/11/21 Range/Units 22:32 WBC (4.8-10.8) K/uL RBC (4.7-6.1) M/uL Hgb (14.0-18.0) g/dL Hct (42-52) % MCV (80-100) fL MCH (25-34) pg MCHC (32-36) g/dL RDW Std Deviation (36.4-46.3) fL RDW Coeff of Niko (11.5-14.5) % Plt Count (130-400) K/uL MPV (7.4-10.4) fL Neutrophils % (Manual) % Lymphocytes % (Manual) % Reactive Lymphs % (Man) % Monocytes % (Manual) % Eosinophils % (Manual) % Metamyelocytes % (Man) % Myelocytes % (Man) % Neutrophils # (Manual) (1.4-6.5) K/uL Total Absolute Neuts (1.4-6.5) K/uL Lymphocytes # (Manual) (1.2-3.4) K/uL Reactive Lymphs # K/uL Total Abs Lymphocytes (1.2-3.4) K/uL Monocytes # (Manual) (0.11-0.59) K/uL Eosinophils # (Manual) (0-0.5) K/uL Metamyelocytes # (Man) (0-0) K/uL Myelocytes # (Manual) (0-0) K/uL RBC Morphology Sodium (136-145) mmol/L Potassium (3.5-5.1) mmol/L Chloride (98-107) mmol/L Carbon Dioxide (21-32) mmol/L Anion Gap (3-11) BUN (6-23) mg/dl Creatinine (0.6-1.4) mg/dl Est Cr Clr Drug Dosing ml/min Est GFR ( Amer) ml/min Est GFR (Non-Af Amer) ml/min BUN/Creatinine Ratio (10-20) Glucose (70-99(Fasting)) mg/dl Calcium (8.5-10.1) mg/dl Total Bilirubin (0.2-1.0) mg/dl AST (13-39) U/L ALT (7-52) U/L Alkaline Phosphatase (34-104) U/L Total Protein (6.0-8.3) gm/dl Albumin (3.4-5.0) gm/dl Globulin (2.5-4.0) gm/dl Albumin/Globulin Ratio (0.9-2) TSH (0.300-4.500) uIu/ml Urine Color Yellow Urine Appearance Clear (Clear) Urine pH 7.5 (4.5-7.5) Ur Specific Gordon 1.011 (1.000-1.030) Urine Protein Negative (Negative) Urine Glucose (UA) Negative (Negative) Urine Ketones Negative (Negative) Urine Blood Negative (Negative) Urine Nitrite Negative (Negative) Urine Bilirubin Negative (Negative) Urine Urobilinogen Negative (Negative) Ur Leukocyte Esterase Negative (Negative) Salicylates (3.0-30) mg/dl Acetaminophen (10-30) ug/ml Valproic Acid (50-100) mcg/ml Ethyl Alcohol mg/dL (<10.0) mg/dl SARS-CoV-2, RNA, NAAT (NEGATIVE) Discharge Plan Visit Data Chief Complaint: Mental Health Evaluation ED Provider: Pedro Elizondo Discharge Problem: Acute hyponatremia, Bipolar disorder, Depression Patient Disposition: Being Evaluated by Hospitalist Forms Stand Alone Forms: My [facility], Suicide Prevention Resources Prescriptions Prescriptions: No Action divalproex [Depakote ER] 500 mg Tablet Extended Release 24 Hr 1,500 mg PO BID RF: 0 venlafaxine [Effexor XR] 150 mg Capsule,Extended Release 24hr 150 mg PO DAILY RF: 0 lisinopril 10 mg tablet 10 mg PO DAILY RF: 0 mirtazapine 15 mg tablet 15 mg PO HS RF: 0 ziprasidone HCl 40 mg capsule 40 mg PO BID RF: 0 buspirone 10 mg tablet 10 mg PO TID RF: 0 methadone 10 mg Tablet 40 mg PO DAILY RF: 0 ibuprofen 600 mg Tablet 600 mg PO BID RF: 0 clonazepam 1 mg tablet 1 mg PO BID RF: 0 Referrals Referrals: Pedro Cannon MD [Primary Care Provider] -
[2021-11-11 22:29] LABS: Hemoglobin 15.9 g/dL (14.0-18.0); Mean Corpuscular Hgb Conc 33.8 g/dL (32-36); Mean Corpuscular Volume 88.7 fL (80-100); Mean Platelet Volume 9.2 fL (7.4-10.4); Platelet Count 322 K/uL (130-400); RDW Coefficient of Variation 14.6 % (11.5-14.5); RDW Standard Deviation 47.2 fL (36.4-46.3); White Blood Count 11.38 K/uL (4.8-10.8)
[2021-11-11 22:52] LABS: ALC (manual) 5.05 K/uL (1.2-3.4); ANC (manual) 4.86 K/uL (1.4-6.5); Albumin Globulin Ratio 1.2 (0.9-2); Albumin Level 4.1 gm/dl (3.4-5.0); BUN Creatinine Ratio 11.3 (10-20); Bilirubin,Total 0.3 mg/dl (0.2-1.0); Calcium 9.5 mg/dl (8.5-10.1); Eosinophils % (manual) 2.6 %; Est GFR (African American) 136.9 ml/min; Est GFR (Non-African American) 118.1 ml/min; Globulin 3.5 gm/dl (2.5-4.0); Lymphocytes # (manual) 2.53 K/uL (1.2-3.4); Lymphocytes % (manual) 22.2 %; Metamyelocytes # (manual) 0.19 K/uL (0-0); Metamyelocytes % (manual) 1.7 %; Monocytes # (manual) 0.88 K/uL (0.11-0.59); Monocytes % (manual) 7.7 %; Myelocytes % (manual) 0.9 %; Neutrophils # (manual) 4.86 K/uL (1.4-6.5); Neutrophils % (manual) 42.7 %; RBC Morphology Unremarkable; Reactive Lymphocytes # (manual) 2.53 K/uL; Reactive Lymphocytes % (manual) 22.2 %; Total Protein 7.6 gm/dl (6.0-8.3)
[2021-11-11 22:56] LABS: Appearance Urine Clear (Clear); Bilirubin Urine Negative (Negative); Blood Urine Negative (Negative); Color Urine Yellow; Glucose Urine UA Negative (Negative); Ketones Urine Negative (Negative); Leukocyte Esterase Urine Negative (Negative); Nitrite Urine Negative (Negative); Protein Urine Negative (Negative); Specific Gravity Urine 1.011 (1.000-1.030); Urobilinogen Urine Negative (Negative); pH Urine 7.5 (4.5-7.5)
[2021-11-11 22:59] LABS: Acetaminophen < 3 ug/ml (10-30); Salicylate < 3.0 mg/dl (3.0-30); Valproic Acid 87 mcg/ml (50-100)
[2021-11-11 23:17] LABS: Thyroid Stimulating Hormone 5.387 uIu/ml (0.300-4.500)
[2021-11-11 23:26] LABS: Amphetamines+Metham, Urine Neg (Neg); Barbiturates, Urine Neg (Neg); Benzodiazepine, Urine Neg (Neg); Cocaine, Urine Neg (Neg); MDMA (Ecstacy), Urine Neg (Neg); Methadone, Urine Pos (Neg); Opiate, Urine Neg (Neg); Phencyclidine, Urine Neg (Neg)
--- NOTE | 2021-11-11 23:54 | History & Physical Report ---
Date of Service November 11, 2021 Assessment & Plan (1) Hyponatremia: Plan: Patient is a 46-year-old male who presented to the emergency department for psych evaluation, upon medical screening for transfer to psych facility it was found the patient had a hyponatremia 126. Hyponatremia -Unknown time of onset. 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 -Largely asymptomatic - patient denies MONREAL, dizziness, imbalance -Serum osmolality, urine osmolality, urine sodium pending at the time of writing this note -Appears euvolemic without signs of hypovolemia at this time -Fluid restriction at 1200 mls per 24 hours -Accurate I's and O's -1 g sodium chloride tabs 3 times daily, IV normal saline would be preferred but patient refused IV placement Depression -Continue Depakote, mirtazapine, Effexor, ziprasidone, buspirone, and clonazepam -Psych consultation placed, appreciate recommendations -Likely transfer for voluntary admission to psych facility once medically stable Diet: Regular with 1200ml fluid restriction DVT Prophylaxis: none, low risk for DVT Dispo: Med/Surg Code Status: Full (2) Depression: (3) HTN (hypertension): History of Present Illness Chief Complaint: Psych evaluation Primary Care Provider: Jas Cannon MD Patient is a 46-year-old male the past medical history of depression, bipolar disorder, hyperlipidemia, hypertension, and homelessness presents to the hospital for a psych evaluation. Patient is somnolent during interview and keeps attempting to fall asleep multiple times. Obtainable HPI includes that the patient wants to be admitted to the hospital because he wants his meds checked as the patient is feeling very depressed and is having auditory hallucinations having a lot of for the past few days to weeks. Upon medical wo rk-up for getting a transfer to a psych facility, it was found that the patient had a hyponatremia at 126 at its lowest. During questioning in regards to this number patient does report that he has been consuming large amounts of liquid as he felt because of that he continued to drink more. His drinks did include water and Gatorade per the history I was able to obtain. Otherwise upon discussion of getting the patient admitted to the floor, patient did refuse to have an IV placed and stated "I am here just for my mental health I do not need an IV." Reports that he is having some mild general aches but no focal pain anywhere, no shortness of breath, no chest pain, no nausea or vomiting at this time. Denies any suicidal thoughts/plan, denies thoughts of self-harm or harm to others. No other pertinent HPI obtainable at this time Allergies Allergy/AdvReac Type Severity Reaction Status Date / Time aripiprazole [From [facility]] AdvReac Agitated Verified 11/11/21 22:35 Home Medications Medication Instructions Recorded Confirmed Type divalproex 500 mg tablet,extended 1,500 mg PO BID 06/16/19 11/11/21 History release 24 hr (Depakote ER) venlafaxine 150 mg 150 mg PO DAILY 06/16/19 11/11/21 History capsule,extended release 24 hr (Effexor XR) lisinopril 10 mg tablet 10 mg PO DAILY 01/19/20 11/11/21 History mirtazapine 15 mg tablet 15 mg PO HS 01/19/20 11/11/21 History ziprasidone HCl 40 mg capsule 40 mg PO BID 08/06/20 11/11/21 History buspirone 10 mg tablet 10 mg PO TID 08/15/20 11/11/21 History clonazepam 1 mg tablet 1 mg PO BID 04/17/21 11/11/21 History ibuprofen 600 mg tablet 600 mg PO BID 04/17/21 11/11/21 History methadone 10 mg tablet 40 mg PO DAILY 07/16/21 11/11/21 History Past Med/Surg History Medical History Bipolar disorder Depression with suicidal ideation Homelessness HTN (hypertension) Hyperlipidemia Methamphetamine addiction Surgical History No pertinent past surgical history Family History Other No pertinent family history Social History Smoking Status: Current every day smoker Tobacco Type: Cigarettes Hx Alcohol Use: Yes Hx Substance Use: Yes Substance Use Type Other:: pt too lethargic to answer Preferred Language: [place]an Communication Ability: Effective Beliefs That Will Affect Care: None marital status: Single Current Living Situation: Homeless Feels Safe at Home: Yes Assistive Devices: None Review of Systems Review of Systems: All systems reviewed & are unremarkable except as noted in HPI & below Physical Exam Constitutional: WD/WN, vitals as above + obese; no acute distress Eyes: + anicteric sclerae Neck: normal visual inspection Respiratory: normal respiratory effort, lungs clear to auscultation Cardiovascular: RRR, no murmur, no edema Gastrointestinal (Abdomen): normal bowel sounds, soft, nontender, no hepatosplenomegaly Musculoskeletal: Head/Neck/Chest: normocephalic and head atraumatic Skin: no rashes, warm and dry Neurologic: moves all extremities Psychiatric: Orientation: oriented x 3 Eye Contact: + poor eye contact Affect: + depressed affect Suicidal Thoughts: denies suicidal thoughts, denies suicidal plan and denies suicidal intent Homicidal Thoughts: denies homicidal thoughts Hallucinations: + auditory hallucinations Results & Data Results & Data ([facility]) Vital Signs (Past 12 Hours) Vital Signs Temp Pulse Pulse Resp BP Pulse Ox 11/11/21 23:48 75 16 92 11/11/21 21:47 36.4 C L 84 20 140/100 91 Laboratory Results Laboratory Results WBC 11.38 K/uL (4.8-10.8) H 11/11/21 22:12 RBC 5.30 M/uL (4.7-6.1) 11/11/21 22:12 Hgb 15.9 g/dL (14.0-18.0) 11/11/21 22:12 Hct 47.0 % (42-52) 11/11/21 22:12 MCV 88.7 fL (80-100) 11/11/21 22:12 MCH 30.0 pg (25-34) 11/11/21 22:12 MCHC 33.8 g/dL (32-36) 11/11/21 22:12 RDW Std Deviation 47.2 fL (36.4-46.3) H 11/11/21 22:12 RDW Coeff of Niko 14.6 % (11.5-14.5) H 11/11/21 22:12 Plt Count 322 K/uL (130-400) 11/11/21 22:12 MPV 9.2 fL (7.4-10.4) 11/11/21 22:12 Neutrophils % (Manual) 42.7 % 11/11/21 22:12 Lymphocytes % (Manual) 22.2 % 11/11/21 22:12 Reactive Lymphs % (Man) 22.2 % 11/11/21 22:12 Monocytes % (Manual) 7.7 % 11/11/21 22:12 Eosinophils % (Manual) 2.6 % 11/11/21 22:12 Metamyelocytes % (Man) 1.7 % 11/11/21 22:12 Myelocytes % (Man) 0.9 % 11/11/21 22:12 Neutrophils # (Manual) 4.86 K/uL (1.4-6.5) 11/11/21 22:12 Total Absolute Neuts 4.86 K/uL (1.4-6.5) 11/11/21 22:12 Lymphocytes # (Manual) 2.53 K/uL (1.2-3.4) 11/11/21 22:12 Reactive Lymphs # 2.53 K/uL 11/11/21 22:12 Total Abs Lymphocytes 5.05 K/uL (1.2-3.4) H 11/11/21 22:12 Monocytes # (Manual) 0.88 K/uL (0.11-0.59) H 11/11/21 22:12 Eosinophils # (Manual) 0.30 K/uL (0-0.5) 11/11/21 22:12 Metamyelocytes # (Man) 0.19 K/uL (0-0) H 11/11/21 22:12 Myelocytes # (Manual) 0.10 K/uL (0-0) H 11/11/21 22:12 RBC Morphology Unremarkable 11/11/21 22:12 Sodium 126 mmol/L (136-145) L 11/11/21 22:12 Potassium 4.0 mmol/L (3.5-5.1) 11/11/21 22:12 Chloride 91 mmol/L (98-107) L 11/11/21 22:12 Carbon Dioxide 29 mmol/L (21-32) 11/11/21 22:12 Anion Gap 6 (3-11) 11/11/21 22:12 BUN 7 mg/dl (6-23) 11/11/21 22:12 Creatinine 0.62 mg/dl (0.6-1.4) 11/11/21 22:12 Est Cr Clr Drug Dosing 222.0 ml/min 11/11/21 22:12 Est GFR ( Amer) 136.9 ml/min 11/11/21 22:12 Est GFR (Non-Af Amer) 118.1 ml/min 11/11/21 22:12 BUN/Creatinine Ratio 11.3 (10-20) 11/11/21 22:12 Glucose 89 mg/dl (70-99(Fasting)) 11/11/21 22:12 Osmolality 270 mOsm/kg (280-300) L 11/11/21 22:12 Calcium 9.5 mg/dl (8.5-10.1) 11/11/21 22:12 Total Bilirubin 0.3 mg/dl (0.2-1.0) 11/11/21 22:12 AST 15 U/L (13-39) 11/11/21 22:12 ALT 12 U/L (7-52) 11/11/21 22:12 Alkaline Phosphatase 68 U/L (34-104) 11/11/21 22:12 Total Protein 7.6 gm/dl (6.0-8.3) 11/11/21 22:12 Albumin 4.1 gm/dl (3.4-5.0) 11/11/21 22:12 Globulin 3.5 gm/dl (2.5-4.0) 11/11/21 22:12 Albumin/Globulin Ratio 1.2 (0.9-2) 11/11/21 22:12 TSH 5.387 uIu/ml (0.300-4.500) H 11/11/21 22:12 Free T4 0.75 ng/dl (0.61-1.60) 11/11/21 22:12 Urine Color Yellow 11/11/21:32 Urine Appearance Clear (Clear) 11/11/21: Urine pH 7.5 (4.5-7.5) 11/11/21:32 Ur Specific [place] 1.011 (1.000-1.030) 11/11/21:32 Urine Protein Negative (Negative) 11/11/21:32 Urine Glucose (UA) Negative (Negative) 11/11/21: Urine Ketones Negative (Negative) 06/16/22 22:32 Urine Blood Negative (Negative) 11/11/21 22:32 Urine Nitrite Negative (Negative) 11/11/21 22:32 Urine Bilirubin Negative (Negative) 11/11/21 22:32 Urine Urobilinogen Negative (Negative) 11/11/21 22:32 Ur Leukocyte Esterase Negative (Negative) 11/11/21 22:32 Urine Osmolality 329 mOsm/kg (500-800) L 11/11/21 22:32 Ur Random Sodium 64 mmol/L 11/11/21 22:32 Salicylates < 3.0 mg/dl (3.0-30) L 11/11/21 22:12 Urine Opiates Screen Neg (Neg) 11/11/21 22:32 Ur Methadone, Qual Pos (Neg) H 11/11/21 22:32 Acetaminophen < 3 ug/ml (10-30) L 11/11/21 22:12 Urine Barbiturates Neg (Neg) 11/11/21 22:32 Valproic Acid 87 mcg/ml (50-100) 11/11/21 22:12 Ur Phencyclidine (PCP) Neg (Neg) 11/11/21 22:32 U Amphetamin/Meth Scrn Neg (Neg) 11/11/21 22:32 MDMA (Ecstasy) Screen Neg (Neg) 11/11/21 22:32 U Benzodiazepines Scrn Neg (Neg) 11/11/21 22:32 Ur Cocaine Metabolite Neg (Neg) 11/11/21 22:32 U Marijuana (THC) Screen Neg (Neg) 11/11/21 22:32 Ethyl Alcohol mg/dL < 10.0 mg/dl (<10.0) 11/11/21 22:12 SARS-CoV-2, RNA, NAAT NEGATIVE (NEGATIVE) 11/11/21 22:12 Code Status & VTE Plan VTE Prophylaxis Plan VTE Prophylaxis will be ordered: No Supervising Physician Co-Signing Physician Notes Patient seen and examined, chart reviewed, case discussed with Dr. Flores and I agree with the assessment and plan as above. In brief, patient presented to the ER today requesting admission for Psychiatric reasons - states that he wants his medications checked, states he has some auditory hallucinations and feels that people are taking advantage of him. He denies SI/HI. Workup revealed hyponatremia with Ic=[id number] Euvolemic with low serum and urine osm and urine Na of 64 - ?SIADH, polydipsia possibly playing a role as well Uncertain if medications are contributing He is asymptomatic Exam is limited - patient is not cooperative and wishes to sleep. Is not agreeable to IV placement. Labs reviewed Assessment/Plan -Fluid restriction, salt tabs, repeat chemistry in AM -Monitor for symptoms of hyponatremia -OK with no PIV for now. Of course, would prefer to have IV access while on the floor. Informed patient that we would absolutely need an IV if his Na decreases or if his condition worsens. -Psychiatry evaluation appreciated -Remainder as above (1) Depression Depression Type: unspecified Qualified Code(s): F32.A - Depression, unspecified
[2021-11-11 23:57] LABS: T4 Free Thyroxine 0.75 ng/dl (0.61-1.60)
[2021-11-12] MEDS ORDERED: POLYETHYLENE (MIRALAX) 17 GM PACK PO PRN (01:19)
--- NOTE | 2021-11-12 02:00 | Billing Data ---
Date of Service November 11, 2021 Coding Level of Care Code 91642 Initial Inpt Care Lvl 2
--- NOTE | 2021-11-12 06:14 | Psychiatric Consultation ---
Date of Consultation November 12, 2021 Psych History Chief Complaint "[]". History of Present Illness started to review patient's chart, wrote order to decrease Klonopin given some sedation (thought likely alteration due to hyponatremia) and typically not advised in patients on methadone. Given rx of Depakote recommended an ammonia level to Dr. Flood who confirmed the patient left AMA therefore consult cannot be completed. Allergies Allergy/AdvReac Type Severity Reaction Status Date / Time aripiprazole [From [facility]] AdvReac Agitated Verified 11/11/21 22:35 Home Medications Medication Instructions Recorded Confirmed Type divalproex 500 mg tablet,extended 1,500 mg PO BID 06/16/19 11/11/21 History release 24 hr (Depakote ER) venlafaxine 150 mg 150 mg PO DAILY 06/16/19 11/11/21 History capsule,extended release 24 hr (Effexor XR) lisinopril 10 mg tablet 10 mg PO DAILY 01/19/20 11/11/21 History mirtazapine 15 mg tablet 15 mg PO HS 01/19/20 11/11/21 History ziprasidone HCl 40 mg capsule 40 mg PO BID 08/06/20 11/11/21 History buspirone 10 mg tablet 10 mg PO TID 08/15/20 11/11/21 History clonazepam 1 mg tablet 1 mg PO BID 04/17/21 11/11/21 History ibuprofen 600 mg tablet 600 mg PO BID 04/17/21 11/11/21 History methadone 10 mg tablet 40 mg PO DAILY 07/16/21 11/11/21 History Personal History Beliefs That Will Affect Care: None Patient History Medical History Bipolar disorder Depression with suicidal ideation Homelessness HTN (hypertension) Hyperlipidemia Methamphetamine addiction Surgical History No pertinent past surgical history Family History Other No pertinent family history Social History Smoking Status: Current every day smoker Tobacco Type: Cigarettes Hx Alcohol Use: Yes Hx Substance Use: Yes Substance Use Type Other:: pt too lethargic to answer Preferred Language: American Communication Ability: Effective Beliefs That Will Affect Care: None marital status: Single Current Living Situation: Homeless Feels Safe at Home: Yes Assistive Devices: None Physical Exam Vital Signs (Past 24 Hours): Last Vital Signs Temp 36.4 C L 11/12/21 05:42 Pulse 66 11/12/21 05:42 Resp 18 11/12/21 05:42 BP 124/63 11/12/21 05:42 Pulse Ox 96 11/12/21 05:42 Coding Level of Care Code None
[2021-11-12] MEDS ORDERED: clonazePAM 0.5 MG TAB PO SCH (09:00)
[2021-11-12] MEDS ORDERED: VENLAFAXINE HCL XR 150 MG CAPXR PO SCH (09:00)
[2021-11-12] MEDS ORDERED: DIVALPROEX EXTENDED RELEASE 500 MG TAB PO SCH (09:00)
[2021-11-12] MEDS ORDERED: SODIUM CHLORIDE 1 GM TABLET PO SCH (09:00)
[2021-11-12] MEDS ORDERED: IBUPROFEN 600 MG TAB PO SCH (09:00)
[2021-11-12] MEDS ORDERED: busPIRone 5 MG TAB PO SCH (09:00)
[2021-11-12] MEDS ORDERED: lisinopril 10 MG TAB PO SCH (09:00)
[2021-11-12] MEDS ORDERED: METHADONE HCL 10 MG TAB PO SCH (09:00)
[2021-11-12] MEDS ORDERED: clonazePAM 1 MG TAB PO SCH (09:00)
--- NOTE | 2021-11-12 11:35 | Electrocardiogram Report ---
Test Reason : Blood Pressure : / mmHG Vent. Rate : 071 BPM Atrial Rate : 071 BPM P-R Int : 152 ms QRS Dur : 122 ms QT Int : 408 ms P-R-T Axes : 036 107 108 degrees QTc Int : 443 ms Normal sinus rhythm Rightward axis Non-specific intra-ventricular conduction delay T wave abnormality, consider anterior ischemia Abnormal ECG When compared with ECG of 16-JUL-2021 15:42, QRS duration has increased Criteria for Anterior infarct are no longer Present Confirmed by Chris Pelletier ([id number]) on 11/12/2021 11:34:54 AM Referred By: REFERRED SELF Confirmed By:[place] Pelletier
[2021-11-12] MEDS ORDERED: MIRTAZAPINE TAB 15 MG TAB PO SCH (21:00)
[2021-11-14 15:11] LABS: Methadone, Ur Metabolite 2080 ng/mL (<100)
== END 2021-11-13 09:39 | disposition left against medical advice (07) ==
LOC: EDINP 21:38 → ED 21:38 → SUATTDRO 23:48 → EDINP 11-12 01:27

== ENCOUNTER 2022-10-09 18:49 | Inpatient (IN) ==
--- NOTE | 2022-10-09 19:13 | Emergency Department Note ---
Impression & Plan Acute hyponatremia, Illness ED Provider Note INFORMANT: Patient ED PROVIDER(S): Javier Barrera MD CHIEF COMPLAINT: Weakness PLAN: Disposition: Admitted Condition: Good Outpatient prescription management: none Referral: None MEDICAL DECISION MAKING: Patient presented because of feeling off and noted that he was weak. He was requesting placement to have further care and management of his medications. I discussed his situation with the ED psychiatric patient case coordinator. I did initiate a medical screening work-up. Patient said he felt dehydrated. He was given IV normal saline. Patient was found to be significantly hyponatremic. Patient will require further medical management in the hospital. Patient was in agreement. Consultation was made with Dr. Chucho Geronimo of the [facility] service. Patient was evaluated in the ER for further management. Discussed with golf course manager After review of the information above and other included data, I feel the patient requires admission. Triage Nursing notes reviewed and agree them. Vital Signs: reviewed and remarkable for no significant abnormalities Prior /Outside records reviewed: Prior ED records reviewed. Differential diagnosis: Infection, dehydration, metabolic abnormality, hypo/hyperglycemia, electrolyte disturbance, anemia, hypoxia, cardiac sources, intracerebral event, toxicologic, neurologic, psychiatric, as well as other pathologies. Diagnostics, as interpreted by me: ECG: none Cardiac Monitoring: Cardiac monitoring ordered by me: The patient was placed on continuous cardiac monitoring and observed. It revealed a normal sinus rhythm at 76 beats per minute without ectopy or evidence of dysrhythmia. Medical decision rules: none Imaging studies: Deferred HPI: The patient is a 47 year old male who presents to the Emergency Room with complaints of illness and inability to care for himself. This started this week and is worsening. The patient also notes the following associated symptoms, poor sleep, dehydration, depression, poor appetite, difficulty walking around, feeling confused, constipation and hemorrhoids. The patient has been using ibuprofen for relieving factors. Current pain is rated as 0/10. Pt denies LOC, headache, fevers, chills, diaphoresis, visual changes, neck pain, chest pain, breathing difficulties, nausea, vomiting, abdominal pain, back pain, melena, hematochezia, urinary symptoms, numbness, weakness, lymphadenopathy, rash, or other complaints. PAST MEDICAL HISTORY: See Below, anxiety, bipolar PAST SURGICAL HISTORY: See Below, pilonidal cyst SOCIAL HISTORY: See Below, smoker HOME MEDICATIONS: See Below ALLERGIES: See Below VITALS: See Below PHYSICAL EXAMINATION: GENERAL: Awake, alert, well-appearing, in no distress HENT: Normocephalic, atraumatic. Oropharynx unremarkable. EYES: Normal conjunctiva. Sclera non-icteric. NECK: Inspection normal. Non-tender. Supple. No nuchal rigidity. FROM. No masses. RESPIRATORY: Clear to auscultation. No wheezes. No rales. Normal respiratory effort. CARDIAC: Normal rate. Normal rhythm. No murmurs. No rubs. Extremities warm and well perfused. Pulses equal. No JVD. GI: Soft, non-distended. No tenderness to palpation. No rebound or guarding. No masses. RECTAL: Deferred. MUSCULOSKELETAL: Atraumatic. Chest examination reveals no tenderness. The back is symmetrical on inspection without obvious abnormality. There is no CVA tenderness to palpation. No joint edema. LOWER EXTREMITIES: Calves are equal size bilaterally and non-tender. No edema. No discoloration. NEURO: Normal sensorium. No sensory or motor deficits noted. SKIN: No rash or jaundice noted. PSYCH: no SI or HI Past Med/Surg History Medical History Bipolar disorder Depression with suicidal ideation Homelessness HTN (hypertension) Hyperlipidemia Methamphetamine addiction Surgical History No pertinent past surgical history Family History Other No pertinent family history Social History Smoking Status: Current every day smoker Tobacco Type: Cigarettes Second Hand Exposure: Yes; Do You Dip or Chew Tobacco: No; Tobacco Cessation Education Requested by Patient: No Hx Alcohol Use: No Hx Substance Use: Yes Non-Prescribed Medications: Crack / Cocaine Last Used Substance: Days (ago) Last Used Substance Other:: Last night Substance Use Type Other:: methadone Preferred Language: Dutch Communication Ability: Impaired Clothes Ironer Required: No Beliefs That Will Affect Care: None marital status: Single Current Living Situation: Boarding Home Other Information That Helps Us Care for You: No Feels Safe at Home: Yes Safety Concerns: Feels Safe At This Time Gender Identity: Male Assistive Devices: None Allergies Allergies Allergy/AdvReac Type Severity Reaction Status Date / Time aripiprazole [From [facility]] AdvReac Severe Agitated Verified 10/09/22 21:18 Home Meds Home Medications Medication Instructions Recorded Confirmed divalproex 500 mg tablet,extended 1,500 mg PO BID 06/16/19 10/09/22 release 24 hr (Depakote ER) venlafaxine 150 mg 150 mg PO QAM 06/16/19 10/09/22 capsule,extended release 24 hr (Effexor XR) lisinopril 10 mg tablet 10 mg PO DAILY 01/19/20 10/09/22 mirtazapine 15 mg tablet 22.5 mg PO HS 01/19/20 10/09/22 clonazepam 1 mg tablet 1 mg PO TID 04/17/21 10/09/22 ziprasidone HCl 60 mg capsule 60 mg PO BID 06/23/22 10/09/22 albuterol sulfate 90 mcg/actuation 2 puff inhalation QID PRN Wheezing 09/06/22 10/09/22 aerosol inhaler buspirone 10 mg tablet 10 mg PO TID 09/06/22 10/09/22 sulfamethoxazole 800 1 tab PO BID 10/09/22 10/09/22 mg-trimethoprim 160 mg tablet Results & Data (ED) Vital Signs Vital Signs - 24 hr 10/09/22 18:52 10/09/22 19:27 10/09/22 20:51 Temperature 36.4 C L Temperature Source Oral Pulse Rate 80 73 70 Respiratory Rate 20 18 Blood Pressure 159/95 H Blood Pressure Mean 116 Pulse Oximetry 96 97 Oxygen Delivery Method Room Air Room Air Sepsis Recent Fever Within 48 Hours No Sepsis New/Unexplained Change in Mental Status No Sepsis Action Taken by Nursing No Action Required Laboratory Data 10/09/22 19:20 10/09/22 19:20 Lab Results 10/09/22 10/09/22 10/09/22 Range/Units 19:20 19:20 19:20 WBC 10.06 (4.8-10.8) K/ul RBC 4.93 (4.70-6.10) M/uL Hgb 15.1 (14.0-18.0) g/dl Hct 42.5 (42.0-52.0) % MCV 86.2 (80.0-100.0) fL MCH 30.6 (25.0-34.0) pg MCHC 35.5 (32.0-36.0) g/dL RDW Std Deviation 42.4 (36.4-46.3) fL RDW Coeff of Niko 13.5 (11.5-14.5) % Plt Count 255 (130-400) K/uL MPV 9.0 L (9.4-12.4) fL Immature Gran % (Auto) 0.8 % Neut % (Auto) 51.2 % Lymph % (Auto) 35.8 % Mckean % (Auto) 10.0 % Eos % (Auto) 1.5 % Baso % (Auto) 0.7 % Neut # (Auto) 5.15 (1.40-6.50) K/uL Lymph # (Auto) 3.60 H (1.2-3.4) K/uL Mckean # (Auto) 1.01 H (0.11-0.59) K/uL Eos # (Auto) 0.15 (0-0.50) K/uL Baso # (Auto) 0.07 (0-0.2) K/uL Immature Gran # (Auto) 0.08 (0.01-0.20) K/uL Sodium 119 L* (136-145) mmol/L Potassium 3.9 (3.5-5.1) mmol/L Chloride 85 L (98-107) mmol/L Carbon Dioxide 29 (21-32) mmol/L Anion Gap 5 (3-11) BUN 11 (6-23) mg/dl Creatinine 0.64 (0.6-1.4) mg/dl Est Cr Clr Drug Dosing 215.4 ml/min Est GFR ( Amer) 134.2 ml/min Est GFR (Non-Af Amer) 115.8 ml/min BUN/Creatinine Ratio 17.2 (10-20) Glucose 107 H (70-99(Fasting)) mg/dl Osmolality (280-300) mOsm/kg Calcium 8.8 (8.6-10.3) mg/dl Magnesium 1.6 L (1.7-2.4) mg/dl Total Bilirubin 0.3 (0.2-1.0) mg/dl AST 61 H (13-39) U/L ALT 89 H (7-52) U/L Alkaline Phosphatase 106 H (34-104) U/L Total Protein 6.5 (6.0-8.3) gm/dl Albumin 3.8 (3.4-5.0) gm/dl Globulin 2.7 (2.5-4.0) gm/dl Albumin/Globulin Ratio 1.4 (0.9-2) Procalcitonin (0-0.5) ng/ml TSH 3.180 (0.300-4.500) uIu/ml Urine Color Urine Appearance (Clear) Urine pH (4.5-7.5) Ur Specific [place] (1.000-1.030) Urine Protein (Negative) Urine Glucose (UA) (Negative) Urine Ketones (Negative) Urine Blood (Negative) Urine Nitrite (Negative) Urine Bilirubin (Negative) Urine Urobilinogen (Negative) Ur Leukocyte Esterase (Negative) Salicylates (3.0-30) mg/dl Urine Opiates Screen (Neg) Ur Methadone, Qual (Neg) Acetaminophen (10-30) ug/ml Urine Barbiturates (Neg) Ur Phencyclidine (PCP) (Neg) U Amphetamin/Meth Scrn (Neg) MDMA (Ecstasy) Screen (Neg) U Benzodiazepines Scrn (Neg) Ur Cocaine Metabolite (Neg) U Marijuana (THC) Screen (Neg) SARS-CoV-2, RNA, NAAT (NEGATIVE) 10/09/22 10/09/22 10/09/22 Range/Units 19:20 19:20 19:20 WBC (4.8-10.8) K/ul RBC (4.70-6.10) M/uL Hgb (14.0-18.0) g/dl Hct (42.0-52.0) % MCV (80.0-100.0) fL MCH (25.0-34.0) pg MCHC (32.0-36.0) g/dL RDW Std Deviation (36.4-46.3) fL RDW Coeff of Niko (11.5-14.5) % Plt Count (130-400) K/uL MPV (9.4-12.4) fL Immature Gran % (Auto) % Neut % (Auto) % Lymph % (Auto) % Mckean % (Auto) % Eos % (Auto) % Baso % (Auto) % Neut # (Auto) (1.40-6.50) K/uL Lymph # (Auto) (1.2-3.4) K/uL Mckean # (Auto) (0.11-0.59) K/uL Eos # (Auto) (0-0.50) K/uL Baso # (Auto) (0-0.2) K/uL Immature Gran # (Auto) (0.01-0.20) K/uL Sodium (136-145) mmol/L Potassium (3.5-5.1) mmol/L Chloride (98-107) mmol/L Carbon Dioxide (21-32) mmol/L Anion Gap (3-11) BUN (6-23) mg/dl Creatinine (0.6-1.4) mg/dl Est Cr Clr Drug Dosing ml/min Est GFR ( Amer) ml/min Est GFR (Non-Af Amer) ml/min BUN/Creatinine Ratio (10-20) Glucose (70-99(Fasting)) mg/dl Osmolality 255 L (280-300) mOsm/kg Calcium (8.6-10.3) mg/dl Magnesium (1.7-2.4) mg/dl Total Bilirubin (0.2-1.0) mg/dl AST (13-39) U/L ALT (7-52) U/L Alkaline Phosphatase (34-104) U/L Total Protein (6.0-8.3) gm/dl Albumin (3.4-5.0) gm/dl Globulin (2.5-4.0) gm/dl Albumin/Globulin Ratio (0.9-2) Procalcitonin (0-0.5) ng/ml TSH (0.300-4.500) uIu/ml Urine Color Urine Appearance (Clear) Urine pH (4.5-7.5) Ur Specific [place] (1.000-1.030) Urine Protein (Negative) Urine Glucose (UA) (Negative) Urine Ketones (Negative) Urine Blood (Negative) Urine Nitrite (Negative) Urine Bilirubin (Negative) Urine Urobilinogen (Negative) Ur Leukocyte Esterase (Negative) Salicylates < 3.0 L (3.0-30) mg/dl Urine Opiates Screen (Neg) Ur Methadone, Qual (Neg) Acetaminophen < 3 L (10-30) ug/ml Urine Barbiturates (Neg) Ur Phencyclidine (PCP) (Neg) U Amphetamin/Meth Scrn (Neg) MDMA (Ecstasy) Screen (Neg) U Benzodiazepines Scrn (Neg) Ur Cocaine Metabolite (Neg) U Marijuana (THC) Screen (Neg) SARS-CoV-2, RNA, NAAT NEGATIVE (NEGATIVE) 10/09/22 10/09/22 10/09/22 Range/Units 19:20 19:57 19:57 WBC (4.8-10.8) K/ul RBC (4.70-6.10) M/uL Hgb (14.0-18.0) g/dl Hct (42.0-52.0) % MCV (80.0-100.0) fL MCH (25.0-34.0) pg MCHC (32.0-36.0) g/dL RDW Std Deviation (36.4-46.3) fL RDW Coeff of Niko (11.5-14.5) % Plt Count (130-400) K/uL MPV (9.4-12.4) fL Immature Gran % (Auto) % Neut % (Auto) % Lymph % (Auto) % Mckean % (Auto) % Eos % (Auto) % Baso % (Auto) % Neut # (Auto) (1.40-6.50) K/uL Lymph # (Auto) (1.2-3.4) K/uL Mckean # (Auto) (0.11-0.59) K/uL Eos # (Auto) (0-0.50) K/uL Baso # (Auto) (0-0.2) K/uL Immature Gran # (Auto) (0.01-0.20) K/uL Sodium (136-145) mmol/L Potassium (3.5-5.1) mmol/L Chloride (98-107) mmol/L Carbon Dioxide (21-32) mmol/L Anion Gap (3-11) BUN (6-23) mg/dl Creatinine (0.6-1.4) mg/dl Est Cr Clr Drug Dosing ml/min Est GFR ( Amer) ml/min Est GFR (Non-Af Amer) ml/min BUN/Creatinine Ratio (10-20) Glucose (70-99(Fasting)) mg/dl Osmolality (280-300) mOsm/kg Calcium (8.6-10.3) mg/dl Magnesium (1.7-2.4) mg/dl Total Bilirubin (0.2-1.0) mg/dl AST (13-39) U/L ALT (7-52) U/L Alkaline Phosphatase (34-104) U/L Total Protein (6.0-8.3) gm/dl Albumin (3.4-5.0) gm/dl Globulin (2.5-4.0) gm/dl Albumin/Globulin Ratio (0.9-2) Procalcitonin < 0.05 (0-0.5) ng/ml TSH (0.300-4.500) uIu/ml Urine Color Yellow Urine Appearance Clear (Clear) Urine pH 7.0 (4.5-7.5) Ur Specific [place] 1.012 (1.000-1.030) Urine Protein Negative (Negative) Urine Glucose (UA) Negative (Negative) Urine Ketones Negative (Negative) Urine Blood Negative (Negative) Urine Nitrite Negative (Negative) Urine Bilirubin Negative (Negative) Urine Urobilinogen Negative (Negative) Ur Leukocyte Esterase Negative (Negative) Salicylates (3.0-30) mg/dl Urine Opiates Screen Neg (Neg) Ur Methadone, Qual Pos H (Neg) Acetaminophen (10-30) ug/ml Urine Barbiturates Pos H (Neg) Ur Phencyclidine (PCP) Neg (Neg) U Amphetamin/Meth Scrn Neg (Neg) MDMA (Ecstasy) Screen Neg (Neg) U Benzodiazepines Scrn Neg (Neg) Ur Cocaine Metabolite Neg (Neg) U Marijuana (THC) Screen Neg (Neg) SARS-CoV-2, RNA, NAAT (NEGATIVE) Administered Medications Clonazepam (Clonazepam 1 Mg Tab) 1 mg PO TID NOA Stop: 11/08/22 23:39 Last Admin: 10/09/22 23:52 Dose: 1 mg Documented By: JHONY Divalproex Sodium (Divalproex Extended Release 500 Mg Tab) 1,500 mg PO BID NOA Stop: 11/08/22 23:44 Last Admin: 10/10/22 00:01 Dose: 1,500 mg Documented By: JHONY Magnesium Sulfate/Dextrose (Magnesium Sulfate / D5w) 1 gm in 100 mls @ 50 mls/hr IV Q2H [facility] Stop: 10/10/22 09:14 Last Admin: 10/10/22 01:48 Dose: 50 mls/hr Documented By: JHONY Mirtazapine (Mirtazapine Tab 15 Mg Tab) 22.5 mg PO HS NOA Stop: 11/08/22 23:44 Last Admin: 10/10/22 00:02 Dose: 22.5 mg Documented By: JHONY Ziprasidone (Ziprasidone Hcl 20 Mg Cap) 60 mg PO BID NOA Stop: 11/08/22 23:44 Last Admin: 10/10/22 00:02 Dose: 60 mg Documented By: JHONY Discontinued Medications Sodium Chloride (Nss 1000ml) 1,000 mls @ 999 mls/hr IV .Q1H1M NOA Stop: 10/09/22 20:15 Last Infusion: 10/09/22 20:42 Dose: 0 mls/hr Documented By: plastic extruding machine operator: 10/09/22 19:19 Dose: 999 mls/hr Documented By: MED Discharge Plan Visit Data Chief Complaint: Illness Stated Complaint: FEELING OFF, ED Provider: Javier Barrera Discharge Problem: Acute hyponatremia, Illness Patient Disposition: Admitted As Inpatient Discharge Instructions Interventions: ED Discharge Assessment Last Done: 10/09/22 23:12
[2022-10-09] MEDS ORDERED: SODIUM CHLORIDE 0.9% 1000ML 1,000 ML IV SCH (19:15)
[2022-10-09 19:49] LABS: Basophils # (auto) 0.07 K/uL (0-0.2); Basophils % (auto) 0.7 %; Eosinophils # (auto) 0.15 K/uL (0-0.50); Eosinophils % (auto) 1.5 %; Hematocrit (blood only) 42.5 % (42.0-52.0); Hemoglobin 15.1 g/dl (14.0-18.0); Immature Granulocytes # (auto) 0.08 K/uL (0.01-0.20); Immature Granulocytes % (auto) 0.8 %; Lymphocytes % (auto) 35.8 %; Mean Corpuscular Hemoglobin 30.6 pg (25.0-34.0); Mean Corpuscular Hgb Conc 35.5 g/dL (32.0-36.0); Mean Corpuscular Volume 86.2 fL (80.0-100.0); Monocytes # (auto) 1.01 K/uL (0.11-0.59); Neutrophils # (auto) 5.15 K/uL (1.40-6.50); Neutrophils % (auto) 51.2 %; Platelet Count 255 K/uL (130-400); RDW Coefficient of Variation 13.5 % (11.5-14.5); RDW Standard Deviation 42.4 fL (36.4-46.3); Red Blood Count 4.93 M/uL (4.70-6.10); White Blood Count 10.06 K/ul (4.8-10.8)
[2022-10-09 20:06] LABS: Appearance Urine Clear (Clear); Bilirubin Urine Negative (Negative); Blood Urine Negative (Negative); Color Urine Yellow; Glucose Urine UA Negative (Negative); Ketones Urine Negative (Negative); Leukocyte Esterase Urine Negative (Negative); Nitrite Urine Negative (Negative); Protein Urine Negative (Negative); Specific Gravity Urine 1.012 (1.000-1.030); Urobilinogen Urine Negative (Negative)
[2022-10-09 20:06] LABS: Albumin Globulin Ratio 1.4 (0.9-2); Albumin Level 3.8 gm/dl (3.4-5.0); BUN Creatinine Ratio 17.2 (10-20); Bilirubin,Total 0.3 mg/dl (0.2-1.0); Calcium 8.8 mg/dl (8.6-10.3); Creatinine Clr Calc Pharmacy 215.4 ml/min; Est GFR (African American) 134.2 ml/min; Est GFR (Non-African American) 115.8 ml/min; Globulin 2.7 gm/dl (2.5-4.0); Magnesium 1.6 mg/dl (1.7-2.4); Potassium 3.9 mmol/L (3.5-5.1); Total Protein 6.5 gm/dl (6.0-8.3)
[2022-10-09 20:38] LABS: Amphetamines+Metham, Urine Neg (Neg); Barbiturates, Urine Pos (Neg); Benzodiazepine, Urine Neg (Neg); Cocaine, Urine Neg (Neg); MDMA (Ecstacy), Urine Neg (Neg); Methadone, Urine Pos (Neg); Opiate, Urine Neg (Neg); Phencyclidine, Urine Neg (Neg)
[2022-10-09 20:49] LABS: Acetaminophen < 3 ug/ml (10-30); Salicylate < 3.0 mg/dl (3.0-30)
--- NOTE | 2022-10-09 21:31 | History & Physical Report ---
Date of Service October 09, 2022 Assessment & Plan (1) Acute hyponatremia: Plan: 47yo Male with PMH polysubstance abuse, bipolar, depression/anxiety, homelessness, HTN HLD here for weakness right leg pain found to be hyponatremic. Hyponatremia -Na 119 -received NSS 1L bolus in ED -serum osm 255 -urine na and osm ordered, patient refused -restarted patient diet with fluid restriction -unfortunately difficult to treat further as patient refuses further labs -concern for respiratory infection which may contribute to hyponatremia, patient has refused imaging Polysubstance Abuse -history of nasal heroin cocaine usage, states he hasn't used recently -smokes 1.5pk a day cigs 'out of nothing to do while he can't walk' -is on clonipin 1mg TID, prescribed by PCP -denies alcohol, marijuana use -goes to methadone clinic daily 48mg, states he missed last 4 doses due to ambulatory issues, Please confirm with pharmacy in daytime -urine drug screen was positive for methadone, barbituates (which may be positive with NSAID use) -patient states he is also on a vivitrol injection, can consider ordering while in hospital Homelessness -CM consult placed, appreciate recs Bipolar, Anxiety, Depression -patient describes regular daily usage of his psych medication -continue buspirone, patient requests decreasing to 5mg TID as he doesn't like side effects -continue divalproex 1500mg BID -continue mirtazapine 22.5mg hs -continue venlafaxine 150mg daily -continue ziprasidone 60mg BID -consider psych consult for assistance with medications Concern infection -patient was started on bactrim BID a few days ago for concern right knee infection -at this time noted wheeze concern pneumonia ordered CXR however patient refused -WBC 10.06 -ordered procal -hold bactrim for now until labs CXR results available Ambulatory dysfunction 2/2 right knee pain -ordered PT/OT -prior knee XR 09/21 note moderate to large joint effusion with mild to moderate osteoarthritis Hypomagnesium -Mg 1.6 -repletion ordered. HTN -continue lisinopril FENa: regular fluid restriction 1500cc Code Status: full DVT PPX: ambulatory PT/OT: ordered Case Management: consult placed Dispo: PCU due to concern withdrawal Tonja Fletcher D.O. PGY 2, FCM (2) Depression: (3) Anxiety: (4) Obesity: (5) Bipolar disorder: (6) Hyperlipidemia: (7) Homelessness: (8) HTN (hypertension): History of Present Illness Chief Complaint: Hyponatremia Primary Care Provider: Mulugeta Cisneros MD 47yo Male with PMH polysubstance abuse, bipolar, depression/anxiety, homelessness, HTN HLD here for weakness right leg pain found to be hyponatremic. Patient is frequently tangential, frequently mentions needing his psych medications and that he needs food. He states that due to his knee he has trouble walking around, he doesn't have the money for regular food or hydration, he has a rental representative coming next month to help with housing and food issues but would like to be placed in a correction where someone can take care of him and his medication. States he was feeling weaker recently, has not been to methadone clinic for past 4 days, notes headache nausea mild SOB lips are on fire body has diffuse pain due to lack of methadone. He says someone at either the psych [facility]anchez or methadone clinic said his sodium has been low for a while. Patient has been visiting the ED regularly for the past several weeks for the concerns of right leg pain with concern infection (started on bactrim by sports medicine), ran out of clonazepam, anxiety, housing issues states his housemates use substances frequently. He is known to have difficulty with follow up. Allergies Allergy/AdvReac Type Severity Reaction Status Date / Time aripiprazole [From [facility]] AdvReac Severe Agitated Verified 10/09/22 21:18 Home Medications Medication Instructions Recorded Confirmed Type divalproex 500 mg tablet,extended 1,500 mg PO BID 06/16/19 10/09/22 History release 24 hr (Depakote ER) venlafaxine 150 mg 150 mg PO QAM 06/16/19 10/09/22 History capsule,extended release 24 hr (Effexor XR) lisinopril 10 mg tablet 10 mg PO DAILY 01/19/20 10/09/22 History mirtazapine 15 mg tablet 22.5 mg PO HS 01/19/20 10/09/22 History clonazepam 1 mg tablet 1 mg PO TID 04/17/21 10/09/22 History ziprasidone HCl 60 mg capsule 60 mg PO BID 06/23/22 10/09/22 History albuterol sulfate 90 mcg/actuation 2 puff inhalation QID PRN Wheezing 09/06/22 10/09/22 History aerosol inhaler buspirone 10 mg tablet 10 mg PO TID 09/06/22 10/09/22 History sulfamethoxazole 800 1 tab PO BID 10/09/22 10/09/22 History mg-trimethoprim 160 mg tablet Past Med/Surg History Medical History Bipolar disorder Depression with suicidal ideation Homelessness HTN (hypertension) Hyperlipidemia Methamphetamine addiction Surgical History No pertinent past surgical history Family History Other No pertinent family history Social History Smoking Status: Current every day smoker Tobacco Type: Cigarettes Second Hand Exposure: Yes; Do You Dip or Chew Tobacco: No; Tobacco Cessation Education Requested by Patient: No Hx Alcohol Use: No Hx Substance Use: Yes Non-Prescribed Medications: Crack / Cocaine Last Used Substance: Days (ago) Last Used Substance Other:: Last night Substance Use Type Other:: methadone Preferred Language: Eritrean Communication Ability: Impaired Can Cutter Required: No Beliefs That Will Affect Care: None marital status: Single Current Living Situation: Boarding Home Other Information That Helps Us Care for You: No Feels Safe at Home: Yes Safety Concerns: Feels Safe At This Time Gender Identity: Male Assistive Devices: None Physical Exam Constitutional: + morbidly obese and comfortable Eyes: PERRL, conjunctivae normal, anicteric sclerae ENMT: external ear and nose normal, oropharynx normal Neck: trachea midline, no thyromegaly Respiratory: normal respiratory effort Auscultation: + rales and + wheezes (noted throughout) Cardiovascular: Rate/Rhythm: regular rate and regular rhythm Extremities: no edema Gastrointestinal (Abdomen): Inspection/Auscultation: abdomen normal to inspection Percussion/Palpation: + abdomen tender (diffuse. mild) and abdomen soft Skin: no rashes, warm and dry Results & Data Results & Data Vital Signs (Past 12 Hours) Vital Signs Temp Pulse Resp BP Pulse Ox O2 Del Method 10/09/22 19:27 73 18 97 Room Air 10/09/22 18:52 36.4 C L 80 20 159/95 H 96 Room Air Supervising Physician Co-Signing Physician Notes Attending addendum: I have physically seen this patient, have supervised the medical residents activities, and agree with the H&P unless as otherwise noted. Assessment and Plan: Hyponatremia- Sodium 119 Serum osmolality 255, urine osmolality pending, urine sodium pending Status post 1 L normal saline bolus in the ED Patient refusing additional lab testing Difficult to treat when patient is not cooperative with testing Continue normal saline at 100 mils per hour for now Polysubstance abuse- Nasal heroin and cocaine in the past Tobacco use 1.5 packs/day Benzodiazepine use: Klonopin 1 mg p.o. 3 times daily prescribed by PCP [facility] methadone clinic daily, reports taking 40 mg daily, but missed last 4 dosages due to ambulatory dysfunction Urine drug screen positive for methadone and barbiturates Homelessness- Consults to social media content manager Hypomagnesemia- Magnesium 1.6 IV replacement and recheck in a.m. Hypertension- Continue lisinopril Bipolar disorder/anxiety/depression- Continue usual medications: Buspirone, divalproex, mirtazapine, venlafaxine and ziprasidone Consult optics technical officer Activity Tracking Resident Involvement: Resident Care Provided Care Provided: Adult Hospital Medicine (2) Depression Depression Type: unspecified Qualified Code(s): F32.A - Depression, unspecified
[2022-10-09] MEDS ORDERED: ALBUTEROL HFA 8 GM INHALER INH PRN (22:00)
[2022-10-09] MEDS ORDERED: MIRTAZAPINE TAB 15 MG TAB PO SCH (23:45)
[2022-10-09] MEDS: clonazePAM 1 MG TAB PO SCH (23:52)
[2022-10-10] MEDS: DIVALPROEX EXTENDED RELEASE 500 MG TAB PO SCH ×2 (00:01→08:27)
[2022-10-10] MEDS: MAGNESIUM SULFATE / D5W 1 GM/100 ML BAG IV SCH ×4 (01:48→08:26)
[2022-10-10 04:24] LABS: BUN Creatinine Ratio 15.1 (10-20); Calcium 8.9 mg/dl (8.6-10.3); Creatinine Clr Calc Pharmacy 260.1 ml/min; Est GFR (Non-African American) 125.1 ml/min; Potassium 4.2 mmol/L (3.5-5.1)
--- NOTE | 2022-10-10 08:02 | Hospitalist Progress Note ---
Date of Service October 10, 2022 Assessment & Plan (1) Acute hyponatremia: Plan: 47yo Male with PMH polysubstance abuse, bipolar, depression/anxiety, homelessness, HTN HLD here for weakness right leg pain found to be hyponatremic. Hyponatremia -Na 119 -received NSS 1L bolus in ED -serum osm 255 -urine na and osm ordered, patient refused -restarted patient diet with fluid restriction -unfortunately difficult to treat further as patient refuses further labs -concern for respiratory infection which may contribute to hyponatremia, patient has refused imaging Polysubstance Abuse -history of nasal heroin cocaine usage, states he hasn't used recently -smokes 1.5pk a day cigs 'out of nothing to do while he can't walk' -is on clonipin 1mg TID, prescribed by PCP -denies alcohol, marijuana use -goes to methadone clinic daily 48mg, states he missed last 4 doses due to ambulatory issues, Please confirm with pharmacy in daytime -urine drug screen was positive for methadone, barbituates (which may be positive with NSAID use) -patient states he is also on a vivitrol injection, can consider ordering while in hospital Homelessness -CM consult placed, appreciate recs Bipolar, Anxiety, Depression -patient describes regular daily usage of his psych medication -continue buspirone, patient requests decreasing to 5mg TID as he doesn't like side effects -continue divalproex 1500mg BID -continue mirtazapine 22.5mg hs -continue venlafaxine 150mg daily -continue ziprasidone 60mg BID -consider psych consult for assistance with medications Concern infection -patient was started on bactrim BID a few days ago for concern right knee infection -at this time noted wheeze concern pneumonia ordered CXR however patient refused -WBC 10.06 -ordered procal -hold bactrim for now until labs CXR results available Ambulatory dysfunction 2/2 right knee pain -ordered PT/OT -prior knee XR 09/21 note moderate to large joint effusion with mild to moderate osteoarthritis Hypomagnesium -Mg 1.6 -repletion ordered. HTN -continue lisinopril FENa: regular fluid restriction 1500cc Code Status: full DVT PPX: ambulatory PT/OT: ordered Case Management: consult placed Dispo: PCU due to concern withdrawal (2) Depression: (3) Anxiety: (4) Obesity: (5) Bipolar disorder: (6) Hyperlipidemia: (7) Homelessness: (8) HTN (hypertension): Admission and Anticipated Discharge Date Admission Date: October 09, 2022 Results & Data Results & Data Vital Signs (Past 12 Hours) Vital Signs Temp Pulse Pulse Resp BP Pulse Ox O2 Del Method 10/10/22 03:20 98.2 F 74 19 109/58 L 99 Room Air 10/09/22 23:45 98.1 F 76 16 161/95 H Room Air 10/09/22 20:51 70 PG Care Time/CCT Total # of Minutes Spent Total Time Spent with Patient: Total time spent is greater than 50% in coordination of care (as documented) at patient's floor/unit and/or counseling patient: Coding Diagnoses Acute hyponatremia E87.1 Depression F32.A Depression Type: unspecified Anxiety F41.9 Obesity E66.9 Bipolar disorder F31.9 Hyperlipidemia E78.5 Homelessness Z59.0 HTN (hypertension) I10 (2) Depression Depression Type: unspecified Qualified Code(s): F32.A - Depression, u nspecified
[2022-10-10 08:05] LABS: BUN Creatinine Ratio 10.9 (10-20); Calcium 9.2 mg/dl (8.6-10.3); Creatinine Clr Calc Pharmacy 250.6 ml/min; Est GFR (African American) 142.8 ml/min; Est GFR (Non-African American) 123.2 ml/min
[2022-10-10] MEDS: clonazePAM 1 MG TAB PO SCH (08:26)
[2022-10-10 08:45] LABS: Magnesium 2.6 mg/dl (1.7-2.4)
[2022-10-10] MEDS ORDERED: lisinopril 10 MG TAB PO SCH (09:00)
[2022-10-10] MEDS ORDERED: DIVALPROEX EXTENDED RELEASE 500 MG TAB PO SCH (09:00)
[2022-10-10] MEDS ORDERED: busPIRone 5 MG TAB PO SCH (09:00)
[2022-10-10] MEDS ORDERED: clonazePAM 1 MG TAB PO SCH (09:00)
[2022-10-10] MEDS ORDERED: VENLAFAXINE HCL XR 150 MG CAPXR PO SCH (09:00)
[2022-10-10] MEDS ORDERED: POLYETHYLENE (MIRALAX) 17 GM PACK PO SCH (09:00)
--- NOTE | 2022-10-10 10:01 | Orthopedic Consultation ---
Date of Consultation October 10, 2022 Assessment & Plan (1) Arthritis of right knee: IMPRESSION: Right knee pain, secondarily to exacerbation of degenerative changes, less likely infection, symptoms are improving. PLAN: Discussed with the patient his options which included repeat aspiration to check if he truly has an infection, explained that infections could be serious and require I&D and potentially IV antibiotics. He reiterated multiple times that the knee is feeling better and that he did not want an aspiration. Will continue to monitor. Explained warning signs of infection. Activities as tolerated WBAT RLE. Follow-up in the office in 1 week. Present on Admission?: Yes History of Present Illness Reason for Consultation: Right knee pain Requesting Physician: Minesh Marion MD Attending Physician: Matthieu Summers MD History of Present Illness Jas is a 47-year-old male who was admitted due to his hyponatremia. He had been seen at the ER multiple times in August due to right knee pain. He was seen in our office 09/30/2022 by Priscilla Barragan PA-C, where an aspiration was obtained and was sent to the lab despite feeling that it was normal in appearance. It later came back with coag negative staph not Lugdunesis that was susceptible to everything, which may have been a contaminant. 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 He feels that his knee is much improved and he is getting around much better. Allergies Allergy/AdvReac Type Severity Reaction Status Date / Time aripiprazole [From Abilify] AdvReac Severe Agitated Verified 10/09/22 21:18 Home Medications Medication Instructions Recorded Confirmed Type divalproex 500 mg tablet,extended 1,500 mg PO BID 06/16/19 10/09/22 History release 24 hr (Depakote ER) venlafaxine 150 mg 150 mg PO QAM 06/16/19 10/09/22 History capsule,extended release 24 hr (Effexor XR) lisinopril 10 mg tablet 10 mg PO DAILY 01/19/20 10/09/22 History mirtazapine 15 mg tablet 22.5 mg PO HS 01/19/20 10/09/22 History clonazepam 1 mg tablet 1 mg PO TID 04/17/21 10/09/22 History ziprasidone HCl 60 mg capsule 60 mg PO BID 06/23/22 10/09/22 History albuterol sulfate 90 mcg/actuation 2 puff inhalation QID PRN Wheezing 09/06/22 10/09/22 History aerosol inhaler buspirone 10 mg tablet 10 mg PO TID 09/06/22 10/09/22 History sulfamethoxazole 800 1 tab PO BID 10/09/22 10/09/22 History mg-trimethoprim 160 mg tablet Patient History Medical History Bipolar disorder Depression with suicidal ideation Homelessness HTN (hypertension) Hyperlipidemia Methamphetamine addiction Surgical History No pertinent past surgical history Family History Other No pertinent family history Social History Smoking Status: Current every day smoker Tobacco Type: Cigarettes Second Hand Exposure: Yes; Do You Dip or Chew Tobacco: No; Tobacco Cessation Education Requested by Patient: No Hx Alcohol Use: No Hx Substance Use: Yes Non-Prescribed Medications: Crack / Cocaine Last Used Substance: Days (ago) Last Used Substance Other:: Last night Substance Use Type Other:: methadone Preferred Language: Vietnamese Communication Ability: Impaired [place] Required: No Beliefs That Will Affect Care: None marital status: Single Current Living Situation: Boarding Home Other Information That Helps Us Care for You: No Feels Safe at Home: Yes Safety Concerns: Feels Safe At This Time Gender Identity: Male Assistive Devices: None Review of Systems Review of Systems: All systems reviewed & are unremarkable except as noted in HPI & below Physical Exam Physical Exam: RLE: Sensation to light touch intact distally. 2+ DP pulse. Motor to Gastroc soleus, Tib Ant, and EHL 5/5. Able to preform straight leg raise. Mild Tenderness to palpation medial joint line. - Virgen's. Ligaments stable. ROM 0-95 degrees. Trace effusion. - Erythema Results & Data Vital Signs (Past 12 Hours) Vital Signs Temp Pulse Resp BP Pulse Ox O2 Del Method 10/10/22 08:14 36.7 C 82 18 150/90 H 92 Room Air 10/10/22 03:20 36.8 C 74 19 109/58 L 99 Room Air 10/09/22 23:45 36.7 C 76 16 161/95 H Room Air Laboratory Results 10/10/22 10/10/22 10/10/22 Range/Units 07:27 03:27 00:10 WBC (4.8-10.8) K/ul RBC (4.70-6.10) M/uL Hgb (14.0-18.0) g/dl Hct (42.0-52.0) % MCV (80.0-100.0) fL MCH (25.0-34.0) pg MCHC (32.0-36.0) g/dL RDW Std Deviation (36.4-46.3) fL RDW Coeff of Niko (11.5-14.5) % Plt Count (130-400) K/uL MPV (9.4-12.4) fL Immature Gran % (Auto) % Neut % (Auto) % Lymph % (Auto) % [place] % (Auto) % Eos % (Auto) % Baso % (Auto) % Neut # (Auto) (1.40-6.50) K/uL Lymph # (Auto) (1.2-3.4) K/uL [place] # (Auto) (0.11-0.59) K/uL Eos # (Auto) (0-0.50) K/uL Baso # (Auto) (0-0.2) K/uL Immature Gran # (Auto) (0.01-0.20) K/uL Sodium 131 L 127 L (136-145) mmol/L Potassium 5.0 4.2 (3.5-5.1) mmol/L Chloride 99 95 L (98-107) mmol/L Carbon Dioxide 27 27 (21-32) mmol/L Anion Gap 5 5 (3-11) BUN 6 8 (6-23) mg/dl Creatinine 0.55 L 0.53 L (0.6-1.4) mg/dl Est Cr Clr Drug Dosing 250.6 260.1 ml/min Est GFR ( Amer) 142.8 145.0 ml/min Est GFR (Non-Af Amer) 123.2 125.1 ml/min BUN/Creatinine Ratio 10.9 15.1 (10-20) Glucose 125 H 110 H (70-99(Fasting)) mg/dl Osmolality (280-300) mOsm/kg Calcium 9.2 8.9 (8.6-10.3) mg/dl Magnesium 2.6 H (1.7-2.4) mg/dl Total Bilirubin (0.2-1.0) mg/dl AST (13-39) U/L ALT (7-52) U/L Alkaline Phosphatase (34-104) U/L Total Protein (6.0-8.3) gm/dl Albumin (3.4-5.0) gm/dl Globulin (2.5-4.0) gm/dl Albumin/Globulin Ratio (0.9-2) Procalcitonin (0-0.5) ng/ml TSH (0.300-4.500) uIu/ml Urine Color Urine Appearance (Clear) Urine pH (4.5-7.5) Ur Specific [place] (1.000-1.030) Urine Protein (Negative) Urine Glucose (UA) (Negative) Urine Ketones (Negative) Urine Blood (Negative) Urine Nitrite (Negative) Urine Bilirubin (Negative) Urine Urobilinogen (Negative) Ur Leukocyte Esterase (Negative) Urine Osmolality (500-800) mOsm/kg Ur Random Sodium 27 mmol/L Urine Butalbital Salicylates (3.0-30) mg/dl Urine Opiates Screen (Neg) Ur Methadone, Qual (Neg) U Methadone Metabolites Ur Methadone Confirm Acetaminophen (10-30) ug/ml Urine Barbiturates (Neg) Ur Phencyclidine (PCP) (Neg) U Amphetamin/Meth Scrn (Neg) MDMA (Ecstasy) Screen (Neg) Urine Amobarbital Urine Pentobarbital Urine Phenobarbital Urine Secobarbital U Benzodiazepines Scrn (Neg) Ur Cocaine Metabolite (Neg) U Marijuana (THC) Screen (Neg) Drug Screen Comment SARS-CoV-2, RNA, NAAT (NEGATIVE) 10/10/22 10/09/22 10/09/22 Range/Units 00:10 19:57 19:57 WBC (4.8-10.8) K/ul RBC (4.70-6.10) M/uL Hgb (14.0-18.0) g/dl Hct (42.0-52.0) % MCV (80.0-100.0) fL MCH (25.0-34.0) pg MCHC (32.0-36.0) g/dL RDW Std Deviation (36.4-46.3) fL RDW Coeff of Niko (11.5-14.5) % Plt Count (130-400) K/uL MPV (9.4-12.4) fL Immature Gran % (Auto) % Neut % (Auto) % Lymph % (Auto) % [place] % (Auto) % Eos % (Auto) % Baso % (Auto) % Neut # (Auto) (1.40-6.50) K/uL Lymph # (Auto) (1.2-3.4) K/uL [place] # (Auto) (0.11-0.59) K/uL Eos # (Auto) (0-0.50) K/uL Baso # (Auto) (0-0.2) K/uL Immature Gran # (Auto) (0.01-0.20) K/uL Sodium (136-145) mmol/L Potassium (3.5-5.1) mmol/L Chloride (98-107) mmol/L Carbon Dioxide (21-32) mmol/L Anion Gap (3-11) BUN (6-23) mg/dl Creatinine (0.6-1.4) mg/dl Est Cr Clr Drug Dosing ml/min Est GFR ( Amer) ml/min Est GFR (Non-Af Amer) ml/min BUN/Creatinine Ratio (10-20) Glucose (70-99(Fasting)) mg/dl Osmolality (280-300) mOsm/kg Calcium (8.6-10.3) mg/dl Magnesium (1.7-2.4) mg/dl Total Bilirubin (0.2-1.0) mg/dl AST (13-39) U/L ALT (7-52) U/L Alkaline Phosphatase (34-104) U/L Total Protein (6.0-8.3) gm/dl Albumin (3.4-5.0) gm/dl Globulin (2.5-4.0) gm/dl Albumin/Globulin Ratio (0.9-2) Procalcitonin (0-0.5) ng/ml TSH (0.300-4.500) uIu/ml Urine Color Urine Appearance (Clear) Urine pH (4.5-7.5) Ur Specific [place] (1.000-1.030) Urine Protein (Negative) Urine Glucose (UA) (Negative) Urine Ketones (Negative) Urine Blood (Negative) Urine Nitrite (Negative) Urine Bilirubin (Negative) Urine Urobilinogen (Negative) Ur Leukocyte Esterase (Negative) Urine Osmolality 100 L (500-800) mOsm/kg Ur Random Sodium mmol/L Urine Butalbital Pending Salicylates (3.0-30) mg/dl Urine Opiates Screen Neg (Neg) Ur Methadone, Qual Pos H (Neg) U Methadone Metabolites Pending Ur Methadone Confirm Pending Acetaminophen (10-30) ug/ml Urine Barbiturates Pos H (Neg) Ur Phencyclidine (PCP) Neg (Neg) U Amphetamin/Meth Scrn Neg (Neg) MDMA (Ecstasy) Screen Neg (Neg) Urine Amobarbital Pending Urine Pentobarbital Pending Urine Phenobarbital Pending Urine Secobarbital Pending U Benzodiazepines Scrn Neg (Neg) Ur Cocaine Metabolite Neg (Neg) U Marijuana (THC) Screen Neg (Neg) Drug Screen Comment Pending SARS-CoV-2, RNA, NAAT (NEGATIVE) 10/09/22 10/09/22 10/09/22 Range/Units 19:57 19:20 19:20 WBC (4.8-10.8) K/ul RBC (4.70-6.10) M/uL Hgb (14.0-18.0) g/dl Hct (42.0-52.0) % MCV (80.0-100.0) fL MCH (25.0-34.0) pg MCHC (32.0-36.0) g/dL RDW Std Deviation (36.4-46.3) fL RDW Coeff of Niko (11.5-14.5) % Plt Count (130-400) K/uL MPV (9.4-12.4) fL Immature Gran % (Auto) % Neut % (Auto) % Lymph % (Auto) % [place] % (Auto) % Eos % (Auto) % Baso % (Auto) % Neut # (Auto) (1.40-6.50) K/uL Lymph # (Auto) (1.2-3.4) K/uL [place] # (Auto) (0.11-0.59) K/uL Eos # (Auto) (0-0.50) K/uL Baso # (Auto) (0-0.2) K/uL Immature Gran # (Auto) (0.01-0.20) K/uL Sodium (136-145) mmol/L Potassium (3.5-5.1) mmol/L Chloride (98-107) mmol/L Carbon Dioxide (21-32) mmol/L Anion Gap (3-11) BUN (6-23) mg/dl Creatinine (0.6-1.4) mg/dl Est Cr Clr Drug Dosing ml/min Est GFR ( Amer) ml/min Est GFR (Non-Af Amer) ml/min BUN/Creatinine Ratio (10-20) Glucose (70-99(Fasting)) mg/dl Osmolality 255 L (280-300) mOsm/kg Calcium (8.6-10.3) mg/dl Magnesium (1.7-2.4) mg/dl Total Bilirubin (0.2-1.0) mg/dl AST (13-39) U/L ALT (7-52) U/L Alkaline Phosphatase (34-104) U/L Total Protein (6.0-8.3) gm/dl Albumin (3.4-5.0) gm/dl Globulin (2.5-4.0) gm/dl Albumin/Globulin Ratio (0.9-2) Procalcitonin < 0.05 (0-0.5) ng/ml TSH (0.300-4.500) uIu/ml Urine Color Yellow Urine Appearance Clear (Clear) Urine pH 7.0 (4.5-7.5) Ur Specific [place] 1.012 (1.000-1.030) Urine Protein Negative (Negative) Urine Glucose (UA) Negative (Negative) Urine Ketones Negative (Negative) Urine Blood Negative (Negative) Urine Nitrite Negative (Negative) Urine Bilirubin Negative (Negative) Urine Urobilinogen Negative (Negative) Ur Leukocyte Esterase Negative (Negative) Urine Osmolality (500-800) mOsm/kg Ur Random Sodium mmol/L Urine Butalbital Salicylates (3.0-30) mg/dl Urine Opiates Screen (Neg) Ur Methadone, Qual (Neg) U Methadone Metabolites Ur Methadone Confirm Acetaminophen (10-30) ug/ml Urine Barbiturates (Neg) Ur Phencyclidine (PCP) (Neg) U Amphetamin/Meth Scrn (Neg) MDMA (Ecstasy) Screen (Neg) Urine Amobarbital Urine Pentobarbital Urine Phenobarbital Urine Secobarbital U Benzodiazepines Scrn (Neg) Ur Cocaine Metabolite (Neg) U Marijuana (THC) Screen (Neg) Drug Screen Comment SARS-CoV-2, RNA, NAAT (NEGATIVE) 10/09/22 10/09/22 10/09/22 Range/Units 19:20 19:20 19:20 WBC (4.8-10.8) K/ul RBC (4.70-6.10) M/uL Hgb (14.0-18.0) g/dl Hct (42.0-52.0) % MCV (80.0-100.0) fL MCH (25.0-34.0) pg MCHC (32.0-36.0) g/dL RDW Std Deviation (36.4-46.3) fL RDW Coeff of Niko (11.5-14.5) % Plt Count (130-400) K/uL MPV (9.4-12.4) fL Immature Gran % (Auto) % Neut % (Auto) % Lymph % (Auto) % [place] % (Auto) % Eos % (Auto) % Baso % (Auto) % Neut # (Auto) (1.40-6.50) K/uL Lymph # (Auto) (1.2-3.4) K/uL [place] # (Auto) (0.11-0.59) K/uL Eos # (Auto) (0-0.50) K/uL Baso # (Auto) (0-0.2) K/uL Immature Gran # (Auto) (0.01-0.20) K/uL Sodium (136-145) mmol/L Potassium (3.5-5.1) mmol/L Chloride (98-107) mmol/L Carbon Dioxide (21-32) mmol/L Anion Gap (3-11) BUN (6-23) mg/dl Creatinine (0.6-1.4) mg/dl Est Cr Clr Drug Dosing ml/min Est GFR ( Amer) ml/min Est GFR (Non-Af Amer) ml/min BUN/Creatinine Ratio (10-20) Glucose (70-99(Fasting)) mg/dl Osmolality (280-300) mOsm/kg Calcium (8.6-10.3) mg/dl Magnesium (1.7-2.4) mg/dl Total Bilirubin (0.2-1.0) mg/dl AST (13-39) U/L ALT (7-52) U/L Alkaline Phosphatase (34-104) U/L Total Protein (6.0-8.3) gm/dl Albumin (3.4-5.0) gm/dl Globulin (2.5-4.0) gm/dl Albumin/Globulin Ratio (0.9-2) Procalcitonin (0-0.5) ng/ml TSH 3.180 (0.300-4.500) uIu/ml Urine Color Urine Appearance (Clear) Urine pH (4.5-7.5) Ur Specific [place] (1.000-1.030) Urine Protein (Negative) Urine Glucose (UA) (Negative) Urine Ketones (Negative) Urine Blood (Negative) Urine Nitrite (Negative) Urine Bilirubin (Negative) Urine Urobilinogen (Negative) Ur Leukocyte Esterase (Negative) Urine Osmolality (500-800) mOsm/kg Ur Random Sodium mmol/L Urine Butalbital Salicylates < 3.0 L (3.0-30) mg/dl Urine Opiates Screen (Neg) Ur Methadone, Qual (Neg) U Methadone Metabolites Ur Methadone Confirm Acetaminophen < 3 L (10-30) ug/ml Urine Barbiturates (Neg) Ur Phencyclidine (PCP) (Neg) U Amphetamin/Meth Scrn (Neg) MDMA (Ecstasy) Screen (Neg) Urine Amobarbital Urine Pentobarbital Urine Phenobarbital Urine Secobarbital U Benzodiazepines Scrn (Neg) Ur Cocaine Metabolite (Neg) U Marijuana (THC) Screen (Neg) Drug Screen Comment SARS-CoV-2, RNA, NAAT NEGATIVE (NEGATIVE) 10/09/22 10/09/22 Range/Units 19:20 19:20 WBC 10.06 (4.8-10.8) K/ul RBC 4.93 (4.70-6.10) M/uL Hgb 15.1 (14.0-18.0) g/dl Hct 42.5 (42.0-52.0) % MCV 86.2 (80.0-100.0) fL MCH 30.6 (25.0-34.0) pg MCHC 35.5 (32.0-36.0) g/dL RDW Std Deviation 42.4 (36.4-46.3) fL RDW Coeff of Niko 13.5 (11.5-14.5) % Plt Count 255 (130-400) K/uL MPV 9.0 L (9.4-12.4) fL Immature Gran % (Auto) 0.8 % Neut % (Auto) 51.2 % Lymph % (Auto) 35.8 % [place] % (Auto) 10.0 % Eos % (Auto) 1.5 % Baso % (Auto) 0.7 % Neut # (Auto) 5.15 (1.40-6.50) K/uL Lymph # (Auto) 3.60 H (1.2-3.4) K/uL [place] # (Auto) 1.01 H (0.11-0.59) K/uL Eos # (Auto) 0.15 (0-0.50) K/uL Baso # (Auto) 0.07 (0-0.2) K/uL Immature Gran # (Auto) 0.08 (0.01-0.20) K/uL Sodium 119 L* (136-145) mmol/L Potassium 3.9 (3.5-5.1) mmol/L Chloride 85 L (98-107) mmol/L Carbon Dioxide 29 (21-32) mmol/L Anion Gap 5 (3-11) BUN 11 (6-23) mg/dl Creatinine 0.64 (0.6-1.4) mg/dl Est Cr Clr Drug Dosing 215.4 ml/min Est GFR ( Amer) 134.2 ml/min Est GFR (Non-Af Amer) 115.8 ml/min BUN/Creatinine Ratio 17.2 (10-20) Glucose 107 H (70-99(Fasting)) mg/dl Osmolality (280-300) mOsm/kg Calcium 8.8 (8.6-10.3) mg/dl Magnesium 1.6 L (1.7-2.4) mg/dl Total Bilirubin 0.3 (0.2-1.0) mg/dl AST 61 H (13-39) U/L ALT 89 H (7-52) U/L Alkaline Phosphatase 106 H (34-104) U/L Total Protein 6.5 (6.0-8.3) gm/dl Albumin 3.8 (3.4-5.0) gm/dl Globulin 2.7 (2.5-4.0) gm/dl Albumin/Globulin Ratio 1.4 (0.9-2) Procalcitonin (0-0.5) ng/ml TSH (0.300-4.500) uIu/ml Urine Color Urine Appearance (Clear) Urine pH (4.5-7.5) Ur Specific [place] (1.000-1.030) Urine Protein (Negative) Urine Glucose (UA) (Negative) Urine Ketones (Negative) Urine Blood (Negative) Urine Nitrite (Negative) Urine Bilirubin (Negative) Urine Urobilinogen (Negative) Ur Leukocyte Esterase (Negative) Urine Osmolality (500-800) mOsm/kg Ur Random Sodium mmol/L Urine Butalbital Salicylates (3.0-30) mg/dl Urine Opiates Screen (Neg) Ur Methadone, Qual (Neg) U Methadone Metabolites Ur Methadone Confirm Acetaminophen (10-30) ug/ml Urine Barbiturates (Neg) Ur Phencyclidine (PCP) (Neg) U Amphetamin/Meth Scrn (Neg) MDMA (Ecstasy) Screen (Neg) Urine Amobarbital Urine Pentobarbital Urine Phenobarbital Urine Secobarbital U Benzodiazepines Scrn (Neg) Ur Cocaine Metabolite (Neg) U Marijuana (THC) Screen (Neg) Drug Screen Comment SARS-CoV-2, RNA, NAAT (NEGATIVE) Diagnostic Findings I reviewed the 2 views of the right knee AP and lateral from 09/21/[address] [facility] system, which shows evidence of medial joint space narrowing, and marginal osteophytes, subchondral cysts, and a large effusion. No fracture or dislocation.
[2022-10-10] MEDS ORDERED: METHADONE ORAL SOLN 2 MG/ML PO SCH (10:30)
[2022-10-10] MEDS ORDERED: PATIENT'S OWN CONTROLLED MED 1 PO SCH (10:30)
--- NOTE | 2022-10-10 15:28 | Discharge Summary ---
Date of Service October 10, 2022 Admission HPI Per Admitting Provider 47yo Male with PMH polysubstance abuse, bipolar, depression/anxiety, homelessness, HTN HLD here for weakness right leg pain found to be hyponatremic. Patient is frequently tangential, frequently mentions needing his psych medications and that he needs food. He states that due to his knee he has trouble walking around, he doesn't have the money for regular food or hydration, he has a junior sales representative coming next month to help with housing and food issues but would like to be placed in a fpc where someone can take care of him and his medication. States he was feeling weaker recently, has not been to methadone clinic for past 4 days, notes headache nausea mild SOB lips are on fire body has diffuse pain due to lack of methadone. He says someone at either the psych [facility]anchez or methadone clinic said his sodium has been low for a while. Patient has been visiting the ED regularly for the past several weeks for the concerns of right leg pain with concern infection (started on bactrim by sports medicine), ran out of clonazepam, anxiety, housing issues states his housemates use substances frequently. He is known to have difficulty with follow up. Principal Diagnosis Patient left AMA Patient with hyponatremia Discharge Exam Patient was arousable demanding his methadone shortly after his methadone he left AMA Discharge Data Allergies Allergy/AdvReac Type Severity Reaction Status Date / Time aripiprazole [From Abilify] AdvReac Severe Agitated Verified 10/09/22 21:18 Consultations 10/09/22 20:44 ED Decision to Admit Stat Hospital Course (1) Acute hyponatremia: 47yo Male with PMH polysubstance abuse, bipolar, depression/anxiety, homelessness, HTN HLD here for weakness right leg pain found to be hyponatremic. Hyponatremia -Patient refused additional lab work and imaging after his initial admission Polysubstance Abuse -history of nasal heroin cocaine usage, states he hasn't used recently -smokes 1.5pk a day cigs 'out of nothing to do while he can't walk' -is on clonipin 1mg TID, prescribed by PCP -denies alcohol, marijuana use -goes to methadone clinic daily 48mg, states he missed last 4 doses due to ambulatory issues, I did call his methadone clinic and confirmed his dose is 48 mg last dose was 06 October -urine drug screen was positive for methadone, barbituates (which may be positive with NSAID use) -patient states he is also on a vivitrol injection, can consider ordering while in hospital Homelessness -CM consult placed, appreciate recs patient left without notification nursing s arpanf Bipolar, Anxiety, Depression -patient describes regular daily usage of his psych medication -continue buspirone, patient requests decreasing to 5mg TID as he doesn't like side effects -continue divalproex 1500mg BID -continue mirtazapine 22.5mg hs -continue venlafaxine 150mg daily -continue ziprasidone 60mg BID Concern infection -patient was started on bactrim BID a few days ago for concern right knee infection Patient was seen by orthopedics in the hospital does not feel he has a deep joint infection Ambulatory dysfunction / right knee pain -prior knee XR 09/21 note moderate to large joint effusion with mild to moderate osteoarthritis Hypomagnesium -Mg 1.6 HTN -continue lisinopril (2) Depression: (3) Anxiety: (4) Obesity: (5) Bipolar disorder: (6) Hyperlipidemia: (7) Homelessness: (8) HTN (hypertension): Total Time Total Time Spent Total Time Spent (In Minutes): It required less than 30 minutes to prepare this patient for discharge Discharge Plan Discharge Items Patient Disposition: Against Medical Advice Reason For Visit: HYPONATREMIA Activity: Resume your previous activity Non-emergency contact: Primary Care Provider Follow-up/Referrals: Mulugeta Cisneros MD [Primary Care Provider] - Pending Studies at Discharge: Yes Stand-Alone Forms: My [facility] [employer], Smoking Cessation Medications and DC Order Prescriptions: Continued divalproex [Depakote ER] 500 mg Tablet Extended Release 24 Hr 1,500 mg PO BID Rx Instructions: 3 tablet dose venlafaxine [Effexor XR] 150 mg Capsule,Extended Release 24hr 150 mg PO QAM lisinopril 10 mg tablet 10 mg PO DAILY mirtazapine 15 mg tablet 22.5 mg PO HS buspirone 10 mg tablet 10 mg PO TID albuterol sulfate 90 mcg/actuation HFA aerosol inhaler 2 puff INHALATION QID PRN (Reason: Wheezing) clonazepam 1 mg tablet 1 mg PO TID ziprasidone HCl 60 mg capsule 60 mg PO BID sulfamethoxazole-trimethoprim 800-160 mg tablet 1 tab PO BID Rx Instructions: ordered 10/05/22 Discharge Orders: Left Against Medical Advice (Routine); Ordered 10/10/22 Ordered By: Matthieu Summers Admission Data Admit Date/Time: 10/09/22 21:59 Attending Provider: Matthieu Summers Admit Provider: Tonja Fletcher Primary Care Provider: Mulugeta Cisneros Other Providers: Chucho Geronimo Coding Level of Care Code 27037 IN/OBS DISCH 30 MIN/LESS Diagnoses Acute hyponatremia E87.1 Depression F32.A Depression Type: unspecified Anxiety F41.9 Obesity E66.9 Bipolar disorder F31.9 Hyperlipidemia E78.5 Homelessness Z59.0 HTN (hypertension) I10
[2022-10-10] MEDS ORDERED: clonazePAM 0.5 MG TAB PO SCH (21:00)
[2022-10-10] MEDS ORDERED: MIRTAZAPINE TAB 15 MG TAB PO SCH (21:00)
[2022-10-12 08:17] LABS: Amobarbital, Urine Conf NEGATIVE ng/mL (<100); Butalbital, Urine NEGATIVE ng/mL (<100); Methadone, Ur Metabolite 468 ng/mL (<100); Pentobarbital, Urine Conf NEGATIVE ng/mL (<100); Phenobarbital, Urine 884 ng/mL (<100); Secobarbital, Urine Conf NEGATIVE ng/mL (<100)
--- NOTE | 2022-10-17 21:43 | Billing Data ---
Date of Service October 17, 2022 Coding Level of Care Code 20160 INT INP/OBS CARE
== END 2022-10-10 15:21 | disposition left against medical advice (07) | DRG 641 ==
LOC: ED 18:49 → SUATTDRO 21:59 → EDINP 21:59 → 4W 23:12

== ENCOUNTER 2023-06-26 01:48 | Inpatient (IN) ==
[2023-06-26] MEDS ORDERED: ALBUT/IPRATROP 3MG/0.5MG NEB 3 ML VIAL NEB STA (02:06)
--- NOTE | 2023-06-26 02:10 | Emergency Department Note ---
History of Present Illness General Chief complaint: Respiratory Problems Stated complaint: CONGESTION IN LUNGS,COUGH Time Seen by Provider: 06/26/23 01:59 History of Present Illness This 47-year-old male who is currently homeless presents ER complaining of cough, congestion and not feeling well for the past few days. He continues to smoke and use meth. Patient denies chest pain, abdominal pain, vomiting, diarrhea. Patient then became more somnolent and I was concerned that he might have taken opiates so he was given Narcan. Patient then became more arousable. After the patient was given Narcan, he admitted to taking heroin tonight. Home Medications Medication Instructions Recorded Confirmed Type divalproex 500 mg tablet,extended 1,500 mg PO BID 06/16/19 06/09/23 History release 24 hr (Depakote ER) venlafaxine 150 mg 150 mg PO QAM 06/16/19 06/09/23 History capsule,extended release 24 hr (Effexor XR) lisinopril 10 mg tablet 10 mg PO DAILY 01/19/20 06/09/23 History mirtazapine 15 mg tablet 15 mg PO HS 01/19/20 06/09/23 History clonazepam 1 mg tablet 0.5 mg PO QID 04/17/21 06/09/23 History ziprasidone HCl 60 mg capsule 60 mg PO BID 06/23/22 06/09/23 History albuterol sulfate 90 mcg/actuation 2 puff inhalation QID PRN Wheezing 09/06/22 06/09/23 History aerosol inhaler buspirone 10 mg tablet 10 mg PO TID 09/06/22 06/09/23 History benztropine 1 mg tablet 1 mg BID 06/09/23 06/09/23 History Allergies Allergy/AdvReac Type Severity Reaction Status Date / Time aripiprazole [From Abilify] AdvReac Severe Agitated Verified 02/04/23 18:40 Past Med/Surg History Medical History Drug abuse Malingering Hyperlipidemia HTN (hypertension) Methamphetamine addiction Homelessness Bipolar disorder Depression with suicidal ideation Surgical History No pertinent past surgical history Family History Other No pertinent family history Social History Smoking Status: Current every day smoker Tobacco Type: Cigarettes Second Hand Exposure: Yes; Do You Dip or Chew Tobacco: No; Hx Alcohol Use: No Hx Substance Use: Yes Non-Prescribed Medications: Crack / Cocaine Last Used Substance: Days (ago) Last Used Substance Other:: Last night Substance Use Type Other:: methadone Preferred Language: Turkmen Communication Ability: Impaired Movement Assembly Final Inspector Required: No Beliefs That Will Affect Care: None marital status: Single Current Living Situation: Boarding Home Feels Safe at Home: Yes Gender Identity: Male Assistive Devices: None Review of Systems A total of 10 systems reviewed and were otherwise negative Physical Exam Vital Signs Vital Signs - 24 hr 06/26/23 01:52 06/26/23 02:14 06/26/23 02:14 Temperature 36.1 C L Temperature Source Temporal Artery Scan Pulse Rate 85 Pulse Rate [Apical] Pulse Rhythm Pulse Rhythm [Apical] Respiratory Rate 18 Respiratory Effort / Characteristics Non-Labored Non-Labored Respiratory Depth Normal Normal Respiratory Pattern Regular Blood Pressure 159/93 H Blood Pressure [Left Arm] Blood Pressure Mean 115 Blood Pressure Mean [Left Arm] Pulse Oximetry 80 L 93 Oxygen Delivery Method Room Air Nasal Cannula Nasal Cannula Oxygen Flow Rate 6 6 Sepsis Recent Fever Within 48 Hours Yes Sepsis New/Unexplained Change in Mental Status No Sepsis Action Taken by Nursing No Action Required 06/26/23 02:14 06/26/23 02:14 06/26/23 02:23 Temperature Temperature Source Pulse Rate 73 75 Pulse Rate [Apical] 73 Pulse Rhythm Regular Pulse Rhythm [Apical] Regular Respiratory Rate 12 12 Respiratory Effort / Characteristics Non-Labored Respiratory Depth Normal Respiratory Pattern Blood Pressure Blood Pressure [Left Arm] 170/106 H Blood Pressure Mean Blood Pressure Mean [Left Arm] 127 Pulse Oximetry 93 93 Oxygen Delivery Method Nasal Cannula Nasal Cannula Oxygen Flow Rate 6 6 Sepsis Recent Fever Within 48 Hours Sepsis New/Unexplained Change in Mental Status Sepsis Action Taken by Nursing VITALS: Vitals are noted on the nurse's note and reviewed by myself. Vital signs reviewed GENERAL: White male speaking in full sentences, in no acute distress, nondiaphoretic, well-developed well-nourished. SKIN: Capillary reflex less than 2 seconds. HEENT: Normocephalic. PERRLA, pupils miosis. EOMI. Nares patent. Mucous membranes moist. Neck is supple without nuchal rigidity. HEART: Regular rate and rhythm LUNGS: Mild diffuse inspiratory and end expiratory wheezes. No retractions or accessory muscle use. ABDOMEN: Positive bowel sounds x 4. Normal tympanic percussion. Soft, nontender, without masses or organomegaly. Paez sign negative. No guarding or rebound tenderness. no CVA tenderness MUSCULOSKELETAL: No gross musculoskeletal defects. NEURO: Patient was alert and oriented to person place and time. No focal neurological deficits. Course Administered Medications Discontinued Medications Albuterol (Albut/Ipratrop 3mg/0.5mg Neb 3 Ml Vial) 3 ml NEB NOW STA; Protocol Stop: 06/26/23 02:07 Last Admin: 06/26/23 02:11 Dose: 3 ml Documented By: CHERYL Ioversol (Optiray 320 125ml) 125 ml IV ONCE ONE Stop: 06/26/23 03:28 Last Admin: 06/26/23 03:27 Dose: 116 ml Documented By: ELVIA Naloxone HCl (Naloxone Hcl 0.4 Mg/1 Ml Vial/Carp) 0.4 mg IV NOW STA Stop: 06/26/23 02:22 Last Admin: 06/26/23 02:23 Dose: 0.4 mg Documented By: CHERYL Naloxone HCl (Naloxone Hcl 0.4 Mg/1 Ml Vial/Carp) 0.4 mg IV NOW STA Stop: 06/26/23 02:29 Last Admin: 06/26/23 03:10 Dose: 0.4 mg Documented By: BEATRICE Medical Decision Making Medical Records Attestation: I reviewed the patient's medical records. Home Medications Current Medication List: was personally reviewed by me Laboratory Data Attestation: I reviewed the patient's lab results. 06/26/23 02:57 06/26/23 02:57 Lab Results 06/26/23 06/26/23 06/26/23 Range/Units 02:25 02:42 02:57 WBC 10.01 (4.8-10.8) K/ul RBC 4.73 (4.70-6.10) M/uL Hgb 14.3 (14.0-18.0) g/dl POC Hgb 16.0 (14.0-18.0) g/dl Hct 43.7 (42.0-52.0) % POC Hct 47 (42-52) % MCV 92.4 (80.0-100.0) fL MCH 30.2 (25.0-34.0) pg MCHC 32.7 (32.0-36.0) g/dL RDW Std Deviation 49.8 H (36.4-46.3) fL RDW Coeff of Niko 14.6 H (11.5-14.5) % Plt Count 267 (130-400) K/uL MPV 10.0 (9.4-12.4) fL Immature Gran % (Auto) 1.8 % Neut % (Auto) 55.4 % Lymph % (Auto) 27.8 % Shelby % (Auto) 14.1 % Eos % (Auto) 0.2 % Baso % (Auto) 0.7 % Neut # (Auto) 5.55 (1.40-6.50) K/uL Lymph # (Auto) 2.78 (1.20-3.40) K/uL Shelby # (Auto) 1.41 H (0.11-0.59) K/uL Eos # (Auto) 0.02 (0.00-0.50) K/uL Baso # (Auto) 0.07 (0.00-0.20) K/uL Immature Gran # (Auto) 0.18 (0.01-0.20) K/uL VBG pH 7.31 L (7.36-7.41) VBG pCO2 78 H (38-50) mmHg VBG pO2 34 mmHg VBG HCO3 39 mmol/L VBG O2 Saturation < 60.0 % VBG Base Excess 9.8 mEq/L POC Sodium 133 L (135-144) mmol/L Sodium 133 L (136-145) mmol/L POC Potassium 3.5 (3.3-5.0) mmol/L Potassium 3.5 (3.5-5.1) mmol/L POC Chloride 90 L (101-112) mmol/L Chloride 92 L (98-107) mmol/L Carbon Dioxide 34 H (21-32) mmol/L POC Total CO2 33 H (24-31) mmol/L Anion Gap 7 (3-11) POC Anion Gap 14.0 L (16-25) mmol/L POC BUN 13 (7-18) mg/dl BUN 13 (6-23) mg/dl Creatinine 0.64 (0.6-1.4) mg/dl POC Creatinine 0.7 (0.6-1.3) mg/dl Est Cr Clr Drug Dosing 228.0 ml/min Est GFR ( Amer) 134.2 ml/min Est GFR (Non-Af Amer) 115.8 ml/min BUN/Creatinine Ratio 20.3 H (10-20) Glucose 107 H (70-99(Fasting)) mg/dl POC Glucose (other) 110 H (70-99) mg/dl Calcium 9.2 (8.6-10.3) mg/dl POC Ioniz Calcium Linda 1.09 L (1.12-1.32) mmol/l Total Bilirubin 0.2 (0.2-1.0) mg/dl AST 17 (13-39) U/L ALT 11 (7-52) U/L Alkaline Phosphatase 53 (34-104) U/L Troponin I High Sens 8.0 (0-20) pg/ml B-Natriuretic Peptide 55 (0-100) pg/ml Total Protein 7.0 (6.0-8.3) gm/dl Albumin 3.7 (3.4-5.0) gm/dl Globulin 3.3 (2.5-4.0) gm/dl Albumin/Globulin Ratio 1.1 (0.9-2) SARS-CoV-2 (PCR) POSITIVE A* (Negative) Influenza Type A (PCR) Negative (Neg) Influenza Type B (PCR) Negative (Neg) RSV (RT-PCR) Negative (Neg) Imaging Data Attestation: I personally reviewed and interpreted this imaging study as follows: Radiologist's Impression: Chest CTA 06/26/23 02:10 Exam(s): CTA CHEST IV Amt: 116 ml optiray 320 EXAM: CT Angiography Chest With Intravenous Contrast CLINICAL HISTORY: Reason for exam: PE. TECHNIQUE: Axial computed tomographic angiography images of the chest with intravenous contrast. CTDI is 59.22 mGy and DLP is 1385.84 mGy-cm. Automated exposure control was utilized for the study. A dose lowering technique was utilized adhering to the principles of ALARA. MIP reconstructed images were created and reviewed. COMPARISON: No relevant prior studies available. FINDINGS: Pulmonary arteries: Evaluation pulmonary embolus is limited secondary to phase of contrast administration. No large central pulmonary embolus present on this study. Aorta: No acute findings. No thoracic aortic aneurysm. Lungs: Bilateral lower lobe interstitial infiltrates. No mass. Pleural space: Unremarkable. No significant effusion. No pneumothorax. Heart: Unremarkable. No cardiomegaly. No significant pericardial effusion. No evidence of RV dysfunction. Mediastinum: There extensive bilateral hilar and mediastinal lymph nodes the largest in the right hilum measures 1.4 cm in short axis diameter. On the left largest measures 1.5 cm in short axis diameter. 1. 8 cm subcarinal lymph node. Bones/joints: No acute fracture. No dislocation. Soft tissues: Unremarkable. Lymph nodes: See above. Liver: Hepatomegaly with fatty infiltration of liver. IMPRESSION: 1. Multifocal pneumonia with reactive lymphadenopathy 2. No large central pulmonary embolus. Electronically signed by: Gennaro Giraldo MD 06/26/23 04:22 AM [facility] Narrative Prior records/ancillary studies reviewed. Triage Nursing notes reviewed. Additional history obtained from the nursing The patient's history was concerning for respiratory difficulties. Differential diagnosis: Etiologies such as infections, reactive airway disease, pneumonia, pneumothorax, COPD, CHF, cardiac ischemia, pulmonary embolism, musculoskeletal, gastrointestinal, as well as others were entertained. Physical examination: As above. ER treatment provided: An order was placed for continuous cardiac monitoring. The monitor shows a rate of 60-100 with a sinus rhythm per my interpretation. Narcan x 2 was given Bear hugger, IV fluids Nebulizer, Decadron was ordered On reassessment the patient felt better. Diagnostic interpretation by me: The electrocardiogram was ordered for SOB. ECG: Normal sinus, right bundle, poor baseline, no acute ST-T wave changes, rate of 74. Impression normal sinus rhythm with right bundle branch block independently interpreted by myself The labs Independently Interpreted by myself revealed positive COVID, negative troponin, negative BNP ABG was reviewed Imaging studies: Chest x-ray with no pneumonia per my independent interpretation. CT is concerning for pneumonia. Patient has COVID HEART SCORE: Hx: high/mod/low suspicion: 0 ECG: ST depression/nonspecific changes/normal: 0 Age: Greater than 65/45-64/less than 45: 1 Risk factors: (Hypertension, hyperlipidemia, diabetes, coronary disease, tobacco use, cocaine use): 2 Troponin: Greater than 2 times normal limits/1-2 times normal limits/normal: 0 Total: 3 Consultation: A consultation was placed with the hospitalist. The case was discussed and diagnostics were reviewed. The patient was evaluated in the ER for further treatment. This appears to be consistent with COVID-19 who was hypoxic with polysubstance abuse with multifocal pneumonia on imaging. Patient's O2 sats was still low but remained stable on nonrebreather. He was medicated as above. He was reassessed multiple times. Medicine was consulted and case was discussed. He admitted to the medical service for further evaluation and treatment.. By the evaluation outlined above emergent etiologies such as CHF, cardiac ischemia, pulmonary embolism, reactive airway disease, pneumothorax, musculoskeletal, as well as others were deemed relatively unlikely. The pt informed about the findings as listed above. All questions were answered and pleased with the treatment. The chart was completed utilizing [employer] Speech voice recognition software. Grammatical errors, random word insertions, pronoun errors, and incomplete sentences are an occassional consequence of this system due to software limitations, ambient noise, and hardware issues. Any formal questions or concerns about the content, text, or information contained within the body of this dictation should be directly addressed to the physician library technical assistant for clarification. Impression & Plan COVID-19, Polysubstance abuse, Hypoxic Discharge Plan Visit Data Chief Complaint: Respiratory Problems Stated Complaint: CONGESTION IN LUNGS,COUGH ED Provider: Alicia Busby ED Midlevel Provider: Selina Siddiqui Discharge Problem: COVID-19, Polysubstance abuse, Hypoxic Patient Disposition: Admitted As Inpatient Condition: Fair Forms Stand Alone Forms: [facility] [place] [email or web address] Prescriptions Prescriptions: No Action divalproex [Depakote ER] 500 mg Tablet Extended Release 24 Hr 1,500 mg PO BID Rx Instructions: 3 tablet dose venlafaxine [Effexor XR] 150 mg Capsule,Extended Release 24hr 150 mg PO QAM lisinopril 10 mg tablet 10 mg PO DAILY mirtazapine 15 mg tablet 15 mg PO HS buspirone 10 mg tablet 10 mg PO TID albuterol sulfate 90 mcg/actuation HFA aerosol inhaler 2 puff INHALATION QID PRN (Reason: Wheezing) benztropine 1 mg tablet 1 mg BID clonazepam 1 mg tablet 0.5 mg PO QID ziprasidone HCl 60 mg capsule 60 mg PO BID Referrals Referrals: PCP,NO [Primary Care Provider] -
[2023-06-26] MEDS ORDERED: NALOXONE HCL 0.4 MG/1 ML VIAL/CARP IV STA ×2 (02:21→02:28)
[2023-06-26 02:55] LABS: iSTAT Creatinine 0.7 mg/dl (0.6-1.3); iSTAT Ionized Calcium 1.09 mmol/l (1.12-1.32); iSTAT Potassium 3.5 mmol/L (3.3-5.0)
[2023-06-26 03:16] LABS: Base Excess VBG 9.8 mEq/L; HCO3 VBG 39 mmol/L; Oxygen Saturation VBG < 60.0 %; PCO2 VBG 78 mmHg (38-50); PO2 VBG 34 mmHg; pH VBG 7.31 (7.36-7.41)
[2023-06-26] MEDS ORDERED: OPTIRAY 320 125ml IV ONE (03:27)
[2023-06-26 03:28] LABS: Basophils # (auto) 0.07 K/uL (0.00-0.20); Basophils % (auto) 0.7 %; Eosinophils # (auto) 0.02 K/uL (0.00-0.50); Eosinophils % (auto) 0.2 %; Hematocrit (blood only) 43.7 % (42.0-52.0); Hemoglobin 14.3 g/dl (14.0-18.0); Immature Granulocytes # (auto) 0.18 K/uL (0.01-0.20); Immature Granulocytes % (auto) 1.8 %; Lymphocytes # (auto) 2.78 K/uL (1.20-3.40); Lymphocytes % (auto) 27.8 %; Mean Corpuscular Hemoglobin 30.2 pg (25.0-34.0); Mean Corpuscular Hgb Conc 32.7 g/dL (32.0-36.0); Mean Corpuscular Volume 92.4 fL (80.0-100.0); Monocytes # (auto) 1.41 K/uL (0.11-0.59); Monocytes % (auto) 14.1 %; Neutrophils # (auto) 5.55 K/uL (1.40-6.50); Neutrophils % (auto) 55.4 %; Platelet Count 267 K/uL (130-400); RDW Coefficient of Variation 14.6 % (11.5-14.5); RDW Standard Deviation 49.8 fL (36.4-46.3); Red Blood Count 4.73 M/uL (4.70-6.10); White Blood Count 10.01 K/ul (4.8-10.8)
[2023-06-26 03:38] LABS: Influenza A virus by PCR Negative (Neg); Influenza B virus by PCR Negative (Neg); RSV by PCR Negative (Neg)
[2023-06-26 03:38] LABS: Albumin Globulin Ratio 1.1 (0.9-2); Albumin Level 3.7 gm/dl (3.4-5.0); BUN Creatinine Ratio 20.3 (10-20); Bilirubin,Total 0.2 mg/dl (0.2-1.0); Calcium 9.2 mg/dl (8.6-10.3); Est GFR (African American) 134.2 ml/min; Est GFR (Non-African American) 115.8 ml/min; Globulin 3.3 gm/dl (2.5-4.0); Potassium 3.5 mmol/L (3.5-5.1)
[2023-06-26 03:42] LABS: SARS CoV2 RNA(COVID-19) Ceph POSITIVE (Negative)
[2023-06-26] MEDS ORDERED: dexAMETHasone**PF** 10 MG/ML VIAL IV ONE (03:50)
[2023-06-26] MEDS ORDERED: SODIUM CHLORIDE 0.9% 1,000 ML IV ONE (04:08)
--- NOTE | 2023-06-26 04:23 | CT Scan Report ---
Exam(s): CTA CHEST IV Amt: 116 ml optiray 320 EXAM: CT Angiography Chest With Intravenous Contrast CLINICAL HISTORY: Reason for exam: PE. TECHNIQUE: Axial computed tomographic angiography images of the chest with intravenous contrast. CTDI is 59.22 mGy and DLP is 1385.84 mGy-cm. Automated exposure control was utilized for the study. A dose lowering technique was utilized adhering to the principles of ALARA. MIP reconstructed images were created and reviewed. COMPARISON: No relevant prior studies available. FINDINGS: Pulmonary arteries: Evaluation pulmonary embolus is limited secondary to phase of contrast administration. No large central pulmonary embolus present on this study. Aorta: No acute findings. No thoracic aortic aneurysm. Lungs: Bilateral lower lobe interstitial infiltrates. No mass. Pleural space: Unremarkable. No significant effusion. No pneumothorax. Heart: Unremarkable. No cardiomegaly. No significant pericardial effusion. No evidence of RV dysfunction. Mediastinum: There extensive bilateral hilar and mediastinal lymph nodes the largest in the right hilum measures 1.4 cm in short axis diameter. On the left largest measures 1.5 cm in short axis diameter. 1. 8 cm subcarinal lymph node. Bones/joints: No acute fracture. No dislocation. Soft tissues: Unremarkable. Lymph nodes: See above. Liver: Hepatomegaly with fatty infiltration of liver. IMPRESSION: 1. Multifocal pneumonia with reactive lymphadenopathy 2. No large central pulmonary embolus. Electronically signed by: Gennaro Giraldo MD 06/26/23 04:22 AM
--- NOTE | 2023-06-26 04:24 | History & Physical Report ---
"Date of Service June 26, 2023 Assessment & Plan (1) Hypoxic: (2) Polysubstance abuse: (3) COVID-19: (4) Illness: (5) Depression: (6) Obesity: (7) Acute respiratory failure with hypoxia: (8) Bipolar disorder: Plan Hypoxia | Pneumonia | COVID-19 Positive -CTA chest: multifocal pneumonia with reactive lymphadenopathy, no evidence of PE -Received dexamethasone in ED, has been on nonrebreather up to 15L. Currently on 10L -ABG completed this morning, shows respiratory acidosis with pH of 7.28 -BiPAP ordered. Will keep NPO while on BiPAP -Duonebs ordered. Continue dexamethsone daily for now -MRSA swab ordered. Will start Cefepime, Azithromycin -Started remdesivir due to COVID positive status, isolation precautions ordered -Monitor daily CBC Hypertension -Elevated on arrival, currently at 167/81 -Continue lisinopril 10mg Polysubstance Abuse -Per chart review, patient endorses using heroin earlier today -Received narcan in ED -UDS pending -Consult case management for complex needs Bipolar, Anxiety, Depression -Holding Depakote while NPO -Hold mirtazapine 15mg hs, venlafaxine 150mg daily, ziprasidone 60mg BID while NPO. Resume when able to tolerate PO -Clonazepam 0.5mg QID, may need to be held at present due to mental status Admit to PCU/tele Diet: NPO Code Status: Full Code VTE Prophylaxis: lovenox History of Present Illness Primary Care Provider: NO PCP Jas Guerrero is a 47 year-old male with past medical history of bipolar depression, polysubstance abuse, HTN, HLD who presents today for shortness of breath. He admits to using heroin on day of admission, received narcan in the ED. Found to be COVID positive on admission. Patient is somnolent at time of encounter, limited HPI obtainable at this time. ED Course: -CTA chest -Dexamethasone, Duoneb treatment Allergies Allergy/AdvReac Type Severity Reaction Status Date / Time aripiprazole [From Abilify] AdvReac Severe Agitated Verified 02/04/23 18:40 Home Medications Medication Instructions Recorded Confirmed Type divalproex 500 mg tablet,extended 1,500 mg PO BID 06/16/19 06/26/23 History release 24 hr (Depakote ER) venlafaxine 150 mg 150 mg PO QAM 06/16/19 06/26/23 History capsule,extended release 24 hr (Effexor XR) lisinopril 10 mg tablet 10 mg PO DAILY 01/19/20 06/26/23 History mirtazapine 15 mg tablet 15 mg PO HS 01/19/20 06/26/23 History clonazepam 1 mg tablet 0.5 mg PO QID 04/17/21 06/26/23 History ziprasidone HCl 60 mg capsule 60 mg PO BID 06/23/22 06/26/23 History albuterol sulfate 90 mcg/actuation 2 puff inhalation QID PRN Wheezing 09/06/22 06/26/23 History aerosol inhaler buspirone 10 mg tablet 10 mg PO TID 09/06/22 06/26/23 History benztropine 1 mg tablet 1 mg BID 06/09/23 06/26/23 History hydroxyzine pamoate 25 mg capsule 25 mg PO BID PRN As Directed 06/26/23 06/26/23 History Past Med/Surg History Medical History Drug abuse Malingering Hyperlipidemia HTN (hypertension) Methamphetamine addiction Homelessness Bipolar disorder Depression with suicidal ideation Surgical History No pertinent past surgical history Family History Other No pertinent family history Social History Smoking Status: Current some day smoker Tobacco Type: Cigarettes Second Hand Exposure: Yes; Do You Dip or Chew Tobacco: No; Hx Alcohol Use: No Hx Substance Use: Yes Non-Prescribed Medications: Crack / Cocaine Last Used Substance: Days (ago) Last Used Substance Other:: Last night Substance Use Type Other:: methadone Preferred Language: Ghanaian Communication Ability: Impaired Central Office Equipment Installer Required: No Beliefs That Will Affect Care: None marital status: Single Current Living Situation: Boarding Home Feels Safe at Home: Yes Gender Identity: Male Assistive Devices: None Review of Systems Review of Systems: As per above Physical Exam Eyes: + anicteric sclerae; no conjunctival abn ormality ENMT: Ears: no external ear abnormality Nose: no external nose abnormality Moist mucous membranes Respiratory: Auscultation: + diminished lung sounds Increased respiratory efforts, nonrebreather in place Cardiovascular: Rate/Rhythm: regular rate and regular rhythm Extremities: + edema Gastrointestinal (Abdomen): normal bowel sounds, soft, nontender, no hepatosplenomegaly Skin: no rashes, warm and dry Psychiatric: Altered mental status, somnolent Results & Data Results & Data Vital Signs (Past 12 Hours) Vital Signs Temp Pulse Pulse Resp BP BP Pulse Ox 06/26/23 02:23 75 06/26/23 02:14 73 12 93 06/26/23 02:14 73 12 170/106 H 93 06/26/23 02:14 93 06/26/23 02:14 06/26/23 01:52 36.1 C L 85 18 159/93 H 80 L O2 Del Method O2 Flow Rate 06/26/23 02:23 06/26/23 02:14 Nasal Cannula 6 06/26/23 02:14 Nasal Cannula 6 06/26/23 02:14 Nasal Cannula 6 06/26/23 02:14 Nasal Cannula 6 06/26/23 01:52 Room Air Supervising Physician Co-Signing Physician Notes Attending addendum: I have physically seen this patient, have supervised the medical residents activities, and agree with the H&P unless as otherwise noted. Assessment and Plan: Acute respiratory failure with hypoxia/pneumonia/COVID-19 infection- Admit to monitored bed CTA chest with multifocal pneumonia with reactive lymphadenopathy. No evidence of PE From the ED he received the following: Dexamethasone 10 mg IV, DuoNeb treatment, normal saline 1 L bolus O2 supplementation initially in the ED with 15 L nonrebreather, and has been decreased to 10 L. Patient was better with BiPAP at bedtime, and can be readdressed in the a.m. as symptoms improve Duonebs every 4 hours while awake and every 2 hours when necessary. MRSA swab Cefepime 2 g IV every 12 hours Azithromycin 500 mg IV daily Remdesivir IV per protocol Follow serial CBC with differential, chemistry profile and magnesium levels Hypertension- BP presently 167/81 If able to take oral, will continue lisinopril 10 mg daily Hydralazine 10 mg IV every 4 hours as needed for systolic blood pressure greater than 160 Polysubstance abuse- Patient admits to use of heroin earlier in the day today Status post Narcan IV Urine drug screen pending Consult case management Bipolar disorder/anxiety with depression- Temporarily holding Depakote, mirtazapine, venlafaxine and ziprasidone while n.p.o., but do expect to be able to resume it in the a.m. Resident Activity Tracking Resident Involvement: Resident Care Provided Care Provided: Adult [facility] Medicine (5) Depression Depression Type: unspecified Qualified Code(s): F32.A - Depression, unspecified"
[2023-06-26 05:44] LABS: Base Excess ABG 9.3 mEq/L (-9-1.8); HCO3 ABG 40 mmol/L (19-24); Oxygen Saturation ABG 98.9 % (90-95); PCO2 ABG 84 mmHg (35-46); PO2 ABG 115 mmHg (80-95); pH ABG 7.28 (7.35-7.45)
[2023-06-26 05:55] LABS: Allen Test Pos (Pos)
[2023-06-26] MEDS ORDERED: CEFEPIME 2,000 MG in SYRINGE 0 ML IV SCH (06:00)
[2023-06-26] MEDS ORDERED: AZITHROMYCIN 500 MG in DEXTROSE 5% 250 ML IV SCH (06:00)
[2023-06-26] MEDS ORDERED: ALBUTEROL HFA 8 GM INHALER INH PRN (07:00)
[2023-06-26] MEDS ORDERED: REMDESIVIR 200 MG in SODIUM CHLORIDE 0.9% 210 ML IV ONE (07:30)
[2023-06-26] MEDS: ALBUT/IPRATROP 3MG/0.5MG NEB 3 ML VIAL NEB SCH ×2 (07:42→10:39)
--- NOTE | 2023-06-26 07:51 | XRay Report ---
XR chest 1V portable HISTORY: Dyspnea COMPARISON: Chest 06/09/2023. FINDINGS: The cardiac silhouette remains mildly enlarged. No pleural effusions. No pneumothorax. Smal l patchy bibasilar densities are noted. The upper lung zones are clear. No evidence for pulmonary shama ma. No acute fractures. IMPRESSION: Small patchy bibasilar densities. This may represent a pneumonia. ACT 112: Negative or not required by law. Electronically signed by: Sukhwinder Shelton M.D. 06/26/2023 7:50 AM
[2023-06-26] MEDS ORDERED: ENOXAPARIN INJ 40 MG/0.4 ML SYR SQ SCH (08:00)
[2023-06-26] MEDS ORDERED: lisinopril 10 MG TAB PO SCH (09:00)
[2023-06-26] MEDS ORDERED: clonazePAM 0.5 MG TAB PO SCH (09:00)
--- NOTE | 2023-06-26 09:54 | Electrocardiogram Report ---
Test Reason : Blood Pressure : / mmHG Vent. Rate : 074 BPM Atrial Rate : 074 BPM P-R Int : 166 ms QRS Dur : 124 ms QT Int : 414 ms P-R-T Axes : 063 254 045 degrees QTc Int : 459 ms Poor data quality, interpretation may be adversely affected Normal sinus rhythm Possible Left atrial enlargement Right bundle branch block Septal infarct , age undetermined Abnormal ECG When compared with ECG of 09-JUN-2023 22:32, Septal infarct is now Present T wave inversion no longer evident in Anterolateral leads Confirmed by Jas Abdul ([id number]) on 06/26/2023 9:54:13 AM Referred By: REFERRED SELF Confirmed By:Jas Abdul
[2023-06-26 11:28] LABS: Amphetamines+Metham, Urine Neg (Neg); Barbiturates, Urine Neg (Neg); Benzodiazepine, Urine Pos (Neg); Cocaine, Urine Neg (Neg); MDMA (Ecstacy), Urine Neg (Neg); Marijuana, Urine Neg (Neg); Methadone, Urine Neg (Neg); Opiate, Urine Pos (Neg); Phencyclidine, Urine Neg (Neg)
[2023-06-26] MEDS ORDERED: MoRPHine SULFATE 2 MG/ML CARP IV STA (12:55)
--- NOTE | 2023-06-26 15:56 | Communication Note ---
Date of Service: June 26, 2023 Pulmonary medicine was consulted for patient with hypoxia in the setting of COVID-19 with pneumonia like process. I did review the patient's chart and upon arrival in the emergency department to see the patient, I was informed by nursing staff the patient had left AGAINST MEDICAL ADVICE. Unfortunately, the patient had left prior to my evaluation.
--- NOTE | 2023-06-26 16:06 | Discharge Summary ---
"Date of Service June 26, 2023 Admission HPI Per Admitting Provider Jas Guerrero is a 47 year-old male with past medical history of bipolar depression, polysubstance abuse, HTN, HLD who presents today for shortness of breath. He admits to using heroin on day of admission, received narcan in the ED. Found to be COVID positive on admission. Patient is somnolent at time of encounter, limited HPI obtainable at this time. ED Course: -CTA chest -Dexamethasone, Duoneb treatment Principal Diagnosis Acute hypoxic respiratory failure, COVID-19 pneumonia Discharge Exam The patient is awake, alert and oriented 3, well developed and well nourished, normocephalic and atraumatic, lying in bed and in no acute distress. HEENT--PERRL, EOMI, mucous membranes and oropharynx mildly dry Neck--supple. No JVD. No bruits. Thyroid normal, trachea midline, no adenopathy. Heart--normal S1 and S2. No murmurs, rubs or gallops. Lungs--reduced air entry on auscultation Abdomen--normal bowel sounds and soft. Mild epigastric and left sided abdominal pain Extremities--no cyanosis or clubbing. No edema. Dermatologic--normal skin turgor, normal color, no abnormal lymph nodes, no rash. Neurologic--cranial nerves II through XII grossly intact. Rheumatologic--normal range of motion. Psychiatric--normal affect. Discharge Data Allergies Allergy/AdvReac Type Severity Reaction Status Date / Time aripiprazole [From Abilify] AdvReac Severe Agitated Verified 02/04/23 18:40 Consultations 06/26/23 04:08 ED Decision to Admit Stat 06/26/23 11:52 Consult Pulmonology Routine Ordered Studies 06/26/23 02:10 CT angio chest PE protocol Stat Hospital Course (1) Hypoxic: (2) Polysubstance abuse: (3) COVID-19: (4) Illness: (5) Depression: (6) Obesity: (7) Acute respiratory failure with hypoxia: (8) Bipolar disorder: Plan Hypoxia | Pneumonia | COVID-19 Positive -CTA chest: multifocal pneumonia with reactive lymphadenopathy, no evidence of PE -Received dexamethasone in ED, has been on nonrebreather up to 15L. Currently on 10L -ABG completed this morning, shows respiratory acidosis with pH of 7.28 -BiPAP ordered. Will keep NPO while on BiPAP -Duonebs ordered. Continue dexamethsone daily for now -MRSA swab ordered. Will start Cefepime, Azithromycin -Started remdesivir due to COVID positive status, isolation precautions ordered -Monitor daily CBC -Consult pulmonology Hypertension -Elevated on arrival, currently at 167/81 -Continue lisinopril 10mg Polysubstance Abuse -Per chart review, patient endorses using heroin earlier today -Received narcan in ED -UDS pending -Consult case management for complex needs Bipolar, Anxiety, Depression -Holding Depakote while NPO -Hold mirtazapine 15mg hs, venlafaxine 150mg daily, ziprasidone 60mg BID while NPO. Resume when able to tolerate PO -Clonazepam 0.5mg QID, may need to be held at present due to mental status Admit to PCU/tele Diet: NPO Code Status: Full Code VTE Prophylaxis: lovenox Patient kept threatening many times and was also signed out AGAINST MEDICAL ADVICE. I went down to him to talk to medical couple of times about the dangers of leaving AGAINST MEDICAL ADVICE given that he was still desaturating and still needing oxygen and BiPAP. However patient insisted that after he had lunch that he was going to leave. He was warned of the dangers including respiratory failure and even . Patient insisted he was going to sign out AGAINST MEDICAL ADVICE. He signed the papers and left AGAINST MEDICAL ADVICE. He was also told that if he feels that he needed to come back to the hospital the hospital will always be open for him. Total Time Total Time Spent Total Time Spent (In Minutes): 35 Discharge Plan Discharge Items Patient Disposition: Against Medical Advice Reason For Visit: SHORTNESS OF BREATH Condition on Discharge: Fair Activity: As commented below Activity Comment: Patient left AMA without discharge instructions. Non-emergency contact: Primary Care Provider Follow-up/Referrals: PCP,NO [Primary Care Provider] - Pending Studies at Discharge: No Stand-Alone Forms: My Cerephex, Smoking Cessation Medications and DC Order Prescriptions: Continued divalproex [Depakote ER] 500 mg Tablet Extended Release 24 Hr 1,500 mg PO BID Rx Instructions: 3 tablet dose venlafaxine [Effexor XR] 150 mg Capsule,Extended Release 24hr 150 mg PO QAM lisinopril 10 mg tablet 10 mg PO DAILY mirtazapine 15 mg tablet 15 mg PO HS buspirone 10 mg tablet 10 mg PO TID albuterol sulfate 90 mcg/actuation HFA aerosol inhaler 2 puff INHALATION QID PRN (Reason: Wheezing) benztropine 1 mg tablet 1 mg BID clonazepam 1 mg tablet 0.5 mg PO QID ziprasidone HCl 60 mg capsule 60 mg PO BID hydroxyzine pamoate 25 mg capsule 25 mg PO BID PRN (Reason: As Directed) Discharge Orders: Left Against Medical Advice (Routine); Ordered 06/26/23 Ordered By: Kelsi Hoyt Admission Data Admit Date/Time: 06/26/23 05:45 Attending Provider: Chucho Geronimo Admit Provider: Shira Bonilla Primary Care Provider: PCP,NO Other Providers: Chucho Geronimo Coding Level of Care Code 64962 INP/OBS DISCH >30 MIN Diagnoses Hypoxic R09.02 Polysubstance abuse F19.10 COVID-19 U07.1 Illness R69 Depression F32.A Depression Type: unspecified Obesity E66.9 Acute respiratory failure with hypoxia J96.01 Bipolar disorder F31.9 Time Spent (min) 35"
[2023-06-27] MEDS ORDERED: dexAMETHasone 6 MG in SYRINGE 0 ML IV SCH (07:00)
[2023-06-27] MEDS ORDERED: REMDESIVIR 100 MG in SODIUM CHLORIDE 0.9% 230 ML IV SCH (12:00)
[2023-06-28 12:02] LABS: 7-Aminoclonaz, Confirm NEGATIVE ng/mL (<25); Codeine Urine NEGATIVE ng/mL (<50); Hydro-Alp Ur, GC/MS 59 ng/mL (<25); Hydrocodone Urine NEGATIVE ng/mL (<50); Hydromor Urine NEGATIVE ng/mL (<50); Hydroxyethylflurazepam, Conf NEGATIVE ng/mL (<50); Hydroxymidazolam Ur, GC/MS NEGATIVE ng/mL (<50); Hydroxytriazolam NEGATIVE ng/mL (<50); Lorazepam, Ur GC/MS NEGATIVE ng/mL (<50); Morphine Urine NEGATIVE ng/mL (<50); Nordiazepam, Confirm NEGATIVE ng/mL (<50); Norhydrocodone Conf Ur NEGATIVE ng/mL (<50); Noroxycodone Urine 4860 ng/mL (<50); Oxazepam Ur, GC/MS NEGATIVE ng/mL (<50); Oxycodone Urine 2700 ng/mL (<50); Oxymorph Urine 989 ng/mL (<50); Temazepam, Confirm NEGATIVE ng/mL (<50)
--- NOTE | 2023-06-28 19:14 | Billing Data ---
Date of Service June 28, 2023 Coding Level of Care Code 03351 INT INP/OBS CARE
== END 2023-06-26 14:30 | disposition left against medical advice (07) | DRG 177 ==
LOC: SUATTDRO → ED 01:48 → EDINP 05:45

== ENCOUNTER 2023-06-28 18:08 | Inpatient (IN) ==
--- NOTE | 2023-06-28 18:21 | ED Triage Note ---
Date of Service June 28, 2023 Provider in Triage Author: Aleksandr Bustamante History of Present Illness This patient was briefly evaluated while in triage. An abbreviated physical exam was performed. This patient is a 47-year-old Male who presents to the ED for evaluation of SOB and chest pain. He left AMA recently during an admission after an overdose. He said that he had damage to his chest and lungs from CPR and they wanted him to stay. He also has COVID and was 88% on room air and O2 was placed by EMS. States that he can't breathe well at home. Physical Exam GENERAL: Non-toxic and in no acute distress. HEENT: Pupils equal. No obvious scleral icterus. HEART: Regular rate and rhythm. LUNGS: Clear to auscultation. A few scattered wheezes. No accessory muscle use. ABDOMEN: Soft, nontender. NEURO: Alert and oriented. No obvious neurological deficits on quick neuro exam. Initial orders for labs and / or imaging were placed and patient was placed in the waiting area until a bed is available. Please see further documentation for the full ED course. MDM / Impression Impression Impression: COVID-19, Hypoxic
--- NOTE | 2023-06-28 20:48 | Emergency Department Note ---
Impression & Plan COVID-19, Hypoxic ED Provider Note Provider: Aleksandr Bustamante MD DATE OF SERVICE: 06/28/2023 CHIEF COMPLAINT: Breathing issues HISTORY OF PRESENT ILLNESS: Patient is a 47-year-old gentleman history of hypertension, tobacco abuse, polysubstance abuse, recent COVID-19 infection, homelessness, psychiatric bipolar disorder presenting here today reporting that he has been more short of breath and a little bit of chest discomfort over the last several days. States he overdosed the other day and then had to leave the hospital. States has been feeling somewhat short of breath and fevers a day or 2 ago but not today. Denies significant nausea or vomiting or diarrhea. Slight cough. Does feel somewhat wheezy. Not using medications at home and unfortunately still smoking. States he did receive the COVID-vaccine and thinks he had COVID before. Denies trauma to me. PAST MEDICAL HISTORY: As noted above MEDICATIONS: Reviewed home medication list yes receiving medications SOCIAL HISTORY: History of drug abuse, using out of the cold support resources, smoker PHYSICAL EXAM: GENERAL: alert and oriented in no acute distress seated in a sawblade in a chair eating a turkey sandwich Head: normocephalic and atraumatic EYES: No injection, discharge or icterus. NECK: Trachea midline. ENT: Mucous membranes pink and moist. LUNGS: Airway patent. No retractions. Breath sounds with expiratory wheeze HEART: Regular rate and rhythm. No chest wall tenderness ABDOMEN: Soft and non-tender, without guarding or rebound. SKIN: Acyanotic, warm, dry, without rashes EXTREMITIES: Without swelling or deformity NEUROLOGICAL: No focal deficits. No aphasia. No facial droop or slurred speech. Ambulatory. EK bpm normal sinus rhythm. No PVC. No acute ST segment elevation with some nonspecific T wave changes in the left axis. Right bundle branch block also present. QTc 444. CONTINUOUS CARDIAC MONITORING: was ordered and showed a heart rate of bpm in 1 view chest x-ray per my interpretation: No pneumothorax. No significant effusion. No free air. Possibly some right hilar infiltrate and interstitial findings. Patient's laboratory studies and imaging reviewed. Differential includes Reactive airway disease, pneumonia, pneumothorax, COPD, CHF, infections, cardiac ischemia, pulmonary embolism, musculoskeletal, gastrointestinal, as well as other pathologies. IMPRESSION/MEDICAL DECISION MAKING: Patient recently here requiring BiPAP for hypercarbia and COVID-19 and possible superimposed pneumonia. Left AMA. Homeless issues and substance abuse issues. Presents here complaining of shortness of breath and some chest discomfort. Wheezing on exam. Only requiring mild oxygen supplementation but does become hypoxic at rest. Some wheezing given DuoNeb. Is a smoker. Will give some steroids. Evening psychiatric medications ordered per his request. Cooperative at this time and does not seem encephalopathic. Denies any significant trauma. Doubt this represents PE. Chest x-ray shows per my interpretation question of a bit of hilar infiltrates. CT from the other day concerning for pneumonia. Given a dose of steroid to help with COVID component as well as any possible COPD. VBG here reassuring without acidosis with a apparently chronic CO2 of 72. Stable on 2 L of oxygen. Again received IV dexamethasone to help with any COPD and/or COVID component. Blood counts without significant leuko-cytosis or anemia. Procalcitonin undetectably low and will hold off on antibiotics as it feels less likely to represent a bacterial pneumonia more just COVID changes in the chest x-ray. Patient with normal platelet count. Compensated bicarb likely related to his chronic hypercarbia. No significant electrolyte abnormality or renal dysfunction. Notes of hepatitis or troponin elevation. Negative urinalysis. Given his hypoxia discussed with the hospitalist for further care here. DIAGNOSIS: COVID-19, hypoxia, homelessness DISPOSITION: Hospitalist will evaluate Patient was agreeable with this plan. Past Med/Surg History Medical History Drug abuse Malingering Hyperlipidemia HTN (hypertension) Methamphetamine addiction Homelessness Bipolar disorder Depression with suicidal ideation Surgical History No pertinent past surgical history Family History Other No pertinent family history Social History Smoking Status: Current some day smoker Tobacco Type: Cigarettes Second Hand Exposure: Yes; Do You Dip or Chew Tobacco: No; Hx Alcohol Use: No Hx Substance Use: Yes Non-Prescribed Medications: Crack / Cocaine Last Used Substance: Days (ago) Last Used Substance Other:: Last night Substance Use Type Other:: methadone Preferred Language: [place] Communication Ability: Impaired Second Shift Supervisor Required: No Beliefs That Will Affect Care: None marital status: Single Current Living Situation: Boarding Home Feels Safe at Home: Yes Gender Identity: Male Assistive Devices: None Allergies Allergies Allergy/AdvReac Type Severity Reaction Status Date / Time aripiprazole [From Abilify] AdvReac Severe Agitated Verified 06/28/23 22:35 Home Meds Home Medications Medication Instructions Recorded Confirmed divalproex 500 mg tablet,extended 1,500 mg PO BID 06/16/19 06/28/23 release 24 hr (Depakote ER) venlafaxine 150 mg 150 mg PO QAM 06/16/19 06/28/23 capsule,extended release 24 hr (Effexor XR) lisinopril 10 mg tablet 10 mg PO DAILY 01/19/20 06/28/23 mirtazapine 15 mg tablet 15 mg PO HS 01/19/20 06/28/23 clonazepam 1 mg tablet 0.5 mg PO QID 04/17/21 06/28/23 ziprasidone HCl 60 mg capsule 60 mg PO BID 06/23/22 06/28/23 albuterol sulfate 90 mcg/actuation 2 puff inhalation QID PRN Wheezing 09/06/22 06/28/23 aerosol inhaler buspirone 10 mg tablet 10 mg PO TID 09/06/22 06/28/23 benztropine 1 mg tablet 1 mg PO BID 06/09/23 06/28/23 hydroxyzine pamoate 25 mg capsule 25 mg PO BID PRN As Directed 06/26/23 06/28/23 atorvastatin 40 mg tablet 40 mg PO DAILY 06/28/23 06/28/23 Results & Data (ED) Vital Signs Vital Signs - 24 hr 06/28/23 18:39 06/28/23 18:41 06/28/23 19:40 Pulse Rate 69 Pulse Rate [Finger] Respiratory Rate 20 Respiratory Effort / Characteristics Non-Labored Spontaneous Respiratory Depth Normal Respiratory Pattern Blood Pressure 158/103 H Blood Pressure [Left Arm] Blood Pressure Mean 121 Blood Pressure Mean [Left Arm] Blood Pressure Position [Left Arm] Pulse Oximetry 87 L 87 L Oxygen Delivery Method Room Air Nasal Cannula Room Air Nasal Cannula Oxygen Flow Rate 2 0 Sepsis Recent Fever Within 48 Hours No Sepsis New/Unexplained Change in Mental Status No Sepsis Action Taken by Nursing No Action Required Oxygen Flow Rate - Titration 2 Pulse Oximetry Post Tiitration 96 06/28/23 19:47 06/28/23 21:00 06/28/23 22:00 Pulse Rate Pulse Rate [Finger] 63 57 L 63 Respiratory Rate 20 15 20 Respiratory Effort / Characteristics Non-Labored Spontaneous Non-Labored Spontaneous Respiratory Depth Normal Normal Respiratory Pattern Regular Regular Blood Pressure Blood Pressure [Left Arm] 154/89 H 157/101 H 153/94 H Blood Pressure Mean Blood Pressure Mean [Left Arm] 110 119 113 Blood Pressure Position [Left Arm] Sitting Semi-fowlers Pulse Oximetry 96 92 93 Oxygen Delivery Method Nasal Cannula Nasal Cannula Nasal Cannula Oxygen Flow Rate 2 2 2 Sepsis Recent Fever Within 48 Hours Sepsis New/Unexplained Change in Mental Status Sepsis Action Taken by Nursing Oxygen Flow Rate - Titration Pulse Oximetry Post Tiitration 06/28/23 22:20 Pulse Rate 61 Pulse Rate [Finger] Respiratory Rate Respiratory Effort / Characteristics Respiratory Depth Respiratory Pattern Blood Pressure Blood Pressure [Left Arm] Blood Pressure Mean Blood Pressure Mean [Left Arm] Blood Pressure Position [Left Arm] Pulse Oximetry Oxygen Delivery Method Oxygen Flow Rate Sepsis Recent Fever Within 48 Hours Sepsis New/Unexplained Change in Mental Status Sepsis Action Taken by Nursing Oxygen Flow Rate - Titration Pulse Oximetry Post Tiitration Laboratory Data 06/28/23 21:11 06/28/23 21:11 Lab Results 06/28/23 06/28/23 Range/Units 21:11 21:20 WBC 9.28 (4.8-10.8) K/ul RBC 4.93 (4.70-6.10) M/uL Hgb 14.6 (14.0-18.0) g/dl Hct 46.7 (42.0-52.0) % MCV 94.7 (80.0-100.0) fL MCH 29.6 (25.0-34.0) pg MCHC 31.3 L (32.0-36.0) g/dL RDW Std Deviation 51.7 H (36.4-46.3) fL RDW Coeff of Niko 15.0 H (11.5-14.5) % Plt Count 358 (130-400) K/uL MPV 9.3 L (9.4-12.4) fL Absolute Nucleated RBC 0.02 (0.00-0.12) K/uL Nucleated RBC % (auto) 0.2 % PT Cancelled INR Cancelled APTT Cancelled PTT Ratio Cancelled VBG pH 7.39 (7.36-7.41) VBG pCO2 72 H (38-50) mmHg VBG pO2 32 mmHg VBG HCO3 44 mmol/L VBG O2 Saturation < 60.0 % VBG Base Excess 15.0 mEq/L Sodium 138 (136-145) mmol/L Potassium 3.9 (3.5-5.1) mmol/L Chloride 97 L (98-107) mmol/L Carbon Dioxide 38 H (21-32) mmol/L Anion Gap 3 (3-11) BUN 9 (6-23) mg/dl Creatinine 0.66 (0.6-1.4) mg/dl Est Cr Clr Drug Dosing 218.2 ml/min Est GFR ( Amer) 132.5 ml/min Est GFR (Non-Af Amer) 114.3 ml/min BUN/Creatinine Ratio 13.6 (10-20) Glucose 101 H (70-99(Fasting)) mg/dl Calcium 9.1 (8.6-10.3) mg/dl Magnesium 2.0 (1.7-2.4) mg/dl Total Bilirubin 0.2 (0.2-1.0) mg/dl AST 20 (13-39) U/L ALT 15 (7-52) U/L Alkaline Phosphatase 59 (34-104) U/L Troponin I High Sens 5.7 (0-20) pg/ml Total Protein 6.9 (6.0-8.3) gm/dl Albumin 3.6 (3.4-5.0) gm/dl Globulin 3.3 (2.5-4.0) gm/dl Albumin/Globulin Ratio 1.1 (0.9-2) Lipase 24 (11-82) U/L Procalcitonin < 0.05 (0-0.5) ng/ml Urine Color Yellow Urine Appearance Clear (Clear) Urine pH 8.5 H (4.5-7.5) Ur Specific [place] 1.016 (1.000-1.030) Urine Protein Negative (Negative) Urine Glucose (UA) Negative (Negative) Urine Ketones Trace H (Negative) Urine Blood Negative (Negative) Urine Nitrite Negative (Negative) Urine Bilirubin Negative (Negative) Urine Urobilinogen Negative (Negative) Ur Leukocyte Esterase Negative (Negative) Urine Opiates Screen Neg (Neg) Ur Methadone, Qual Neg (Neg) Urine Barbiturates Pos H (Neg) Valproic Acid 62 (50-100) mcg/ml Ur Phencyclidine (PCP) Neg (Neg) U Amphetamin/Meth Scrn Neg (Neg) MDMA (Ecstasy) Screen Neg (Neg) U Benzodiazepines Scrn Neg (Neg) Ur Cocaine Metabolite Neg (Neg) U Marijuana (THC) Screen Neg (Neg) Administered Medications Discontinued Medications Albuterol (Albut/Ipratrop 3mg/0.5mg Neb 3 Ml Vial) 3 ml NEB NOW STA; Protocol Stop: 06/28/23 20:42 Last Admin: 06/28/23 21:05 Dose: 3 ml Documented By: WILLIAM Benztropine Mesylate (Benztropine Mesylate 0.5 Mg Tab) 1 mg PO ONCE ONE Stop: 06/28/23 20:40 Last Admin: 06/28/23 21:06 Dose: Not Given Documented By: WILLIAM Buspirone HCl (Buspirone 5 Mg Tab) 10 mg PO ONCE ONE Stop: 06/28/23 20:41 Last Admin: 06/28/23 21:06 Dose: Not Given Documented By: WILLIAM Dexamethasone Sodium Phosphate (DexamethasonePf 10 Mg/Ml Vial) 6 mg IV NOW ONE Stop: 06/28/23 20:42 Last Admin: 06/28/23 21:10 Dose: 6 mg Documented By: WILLIAM Divalproex Sodium (Divalproex Extended Release 500 Mg Tab) 1,500 mg PO NOW ONE Stop: 06/28/23 20:40 Last Admin: 06/28/23 21:05 Dose: 1,500 mg Documented By: WILLIAM Nicotine (Nicotine 21 Mg/24 Hr Tdsy) 21 mg TD ONCE ONE Stop: 06/28/23 21:30 Last Admin: 06/28/23 21:49 Dose: 21 mg Documented By: LARRY Ziprasidone (Ziprasidone Hcl 20 Mg Cap) 60 mg PO ONCE ONE Stop: 06/28/23 20:41 Last Admin: 06/28/23 21:04 Dose: 60 mg Documented By: WILLIAM Discharge Plan Visit Data Chief Complaint: Shortness of Breath/Dyspnea ED Provider: Aleksandr Bustamante Discharge Problem: COVID-19, Hypoxic Patient Disposition: Being Evaluated by Hospitalist Forms Stand Alone Forms: My [facility] Prescriptions Prescriptions: No Action divalproex [Depakote ER] 500 mg Tablet Extended Release 24 Hr 1,500 mg PO BID Rx Instructions: 3 tablet dose venlafaxine [Effexor XR] 150 mg Capsule,Extended Release 24hr 150 mg PO QAM lisinopril 10 mg tablet 10 mg PO DAILY mirtazapine 15 mg tablet 15 mg PO HS buspirone 10 mg tablet 10 mg PO TID albuterol sulfate 90 mcg/actuation HFA aerosol inhaler 2 puff INHALATION QID PRN (Reason: Wheezing) Rx Instructions: PER PT "DON'T HAVE AT HOME" benztropine 1 mg tablet 1 mg PO BID Rx Instructions: PER PT "NOT REGULARLY" clonazepam 1 mg tablet 0.5 mg PO QID ziprasidone HCl 60 mg capsule 60 mg PO BID Rx Instructions: PER PT "DON'T TAKE" hydroxyzine pamoate 25 mg capsule 25 mg PO BID PRN (Reason: As Directed) atorvastatin 40 mg tablet 40 mg PO DAILY Referrals Referrals: PCP,NO [Primary Care Provider] -
[2023-06-28] MEDS: ALBUT/IPRATROP 3MG/0.5MG NEB 3 ML VIAL NEB STA (21:05)
[2023-06-28] MEDS: DIVALPROEX EXTENDED RELEASE 500 MG TAB PO ONE (21:05)
[2023-06-28] MEDS: BENZTROPINE MESYLATE 0.5 MG TAB PO ONE (21:06)
[2023-06-28] MEDS: busPIRone 5 MG TAB PO ONE (21:06)
[2023-06-28] MEDS: dexAMETHasone**PF** 10 MG/ML VIAL IV ONE (21:10)
[2023-06-28 21:21] LABS: HCO3 VBG 44 mmol/L; Oxygen Saturation VBG < 60.0 %; PCO2 VBG 72 mmHg (38-50); PO2 VBG 32 mmHg; pH VBG 7.39 (7.36-7.41)
[2023-06-28 21:45] LABS: Albumin Globulin Ratio 1.1 (0.9-2); Albumin Level 3.6 gm/dl (3.4-5.0); BUN Creatinine Ratio 13.6 (10-20); Bilirubin,Total 0.2 mg/dl (0.2-1.0); Calcium 9.1 mg/dl (8.6-10.3); Creatinine Clr Calc Pharmacy 218.2 ml/min; Est GFR (African American) 132.5 ml/min; Est GFR (Non-African American) 114.3 ml/min; Globulin 3.3 gm/dl (2.5-4.0); Potassium 3.9 mmol/L (3.5-5.1); Total Protein 6.9 gm/dl (6.0-8.3)
[2023-06-28 21:48] LABS: Appearance Urine Clear (Clear); Bilirubin Urine Negative (Negative); Blood Urine Negative (Negative); Color Urine Yellow; Glucose Urine UA Negative (Negative); Ketones Urine Trace (Negative); Leukocyte Esterase Urine Negative (Negative); Nitrite Urine Negative (Negative); Protein Urine Negative (Negative); Specific Gravity Urine 1.016 (1.000-1.030); Urobilinogen Urine Negative (Negative); pH Urine 8.5 (4.5-7.5)
[2023-06-28] MEDS: NICOTINE 21 MG/24 HR TDSY TD ONE (21:49)
[2023-06-28 21:51] LABS: Hematocrit (blood only) 46.7 % (42.0-52.0); Hemoglobin 14.6 g/dl (14.0-18.0); Mean Corpuscular Hemoglobin 29.6 pg (25.0-34.0); Mean Corpuscular Hgb Conc 31.3 g/dL (32.0-36.0); Mean Corpuscular Volume 94.7 fL (80.0-100.0); Mean Platelet Volume 9.3 fL (9.4-12.4); Nucleated RBC # (auto) 0.02 K/uL (0.00-0.12); Nucleated RBC % (auto) 0.2 %; Platelet Count 358 K/uL (130-400); RDW Standard Deviation 51.7 fL (36.4-46.3); Red Blood Count 4.93 M/uL (4.70-6.10); Troponin I High Sensitivity 5.7 pg/ml (0-20); White Blood Count 9.28 K/ul (4.8-10.8)
[2023-06-28 22:29] LABS: Amphetamines+Metham, Urine Neg (Neg); Barbiturates, Urine Pos (Neg); Benzodiazepine, Urine Neg (Neg); Cocaine, Urine Neg (Neg); MDMA (Ecstacy), Urine Neg (Neg); Marijuana, Urine Neg (Neg); Methadone, Urine Neg (Neg); Opiate, Urine Neg (Neg); Phencyclidine, Urine Neg (Neg)
--- NOTE | 2023-06-28 22:57 | History & Physical Report ---
Date of Service June 28, 2023 Assessment & Plan (1) COVID-19: Plan: Patient hypoxic in the ER, improved on supplemental O2. Presently 94% on 2L -Maintain isolation precautions -Continue Dexamethasone 6mg IV daily -Supplemental o2 as needed -Tylenol PRN -Albuterol PRN (2) Bipolar disorder: Plan: Chronic. Patient with Bipolar disorder, Anxiety and Depression as well as polysubstance abuse. He is on quite a few psychotropic agents. No recent note from Psychiatric services Continue Venlafaxine 150mg po qAM, Buspirone 10mg po TID, Clonazepam 0.5mg po QID and Hydroxyzine PRN for anxiety Continue Divalproex 1500mg po BID, Ziprasidone 60mg po BID and Cogentin 1mg po BID for BiPolar disorder -Remeron qHS (3) Hyperlipidemia: Plan: Chronic, Stable -Continue Atorvastatin (4) HTN (hypertension): Plan: Chronic. Stable. Blood pressure currently 133/75 -Continue Lisinopril 10mg po daily -Monitor (5) Homelessness: Plan: Noted. Consider with discharge planning History of Present Illness Chief Complaint: shortness of breath Primary Care Provider: NO PCP Jas Guerrero is a 47yo male presenting with shortness of breath. Patient was admitted to [facility] on 06/26/23 after presenting with the same. He was found to be POSITIVE for Covid-19 infection and hypoxic requiring supplemental O2 via NRB. Patient was treated with nebs and dexamethasone. He ultimately left AMA on the same day of admission. He returns to the ER now with ongoing shortness of breath. States that "he wishes that he never left". Mildly hypoxic in the ER to 87% on room air. No further complaints Allergies Allergy/AdvReac Type Severity Reaction Status Date / Time aripiprazole [From Abili] AdvReac Severe Agitated Verified 06/28/23 22:35 Home Medications Medication Instructions Recorded Confirmed Type divalproex 500 mg tablet,extended 1,500 mg PO BID 06/16/19 06/28/23 History release 24 hr (Depakote ER) venlafaxine 150 mg 150 mg PO QAM 06/16/19 06/28/23 History capsule,extended release 24 hr (Effexor XR) lisinopril 10 mg tablet 10 mg PO DAILY 01/19/20 06/28/23 History mirtazapine 15 mg tablet 15 mg PO HS 01/19/20 06/28/23 History clonazepam 1 mg tablet 0.5 mg PO QID 04/17/21 06/28/23 History ziprasidone HCl 60 mg capsule 60 mg PO BID 06/23/22 06/28/23 History albuterol sulfate 90 mcg/actuation 2 puff inhalation QID PRN Wheezing 09/06/22 06/28/23 History aerosol inhaler buspirone 10 mg tablet 10 mg PO TID 09/06/22 06/28/23 History benztropine 1 mg tablet 1 mg PO BID 06/09/23 06/28/23 History hydroxyzine pamoate 25 mg capsule 25 mg PO BID PRN As Directed 06/26/23 06/28/23 History atorvastatin 40 mg tablet 40 mg PO DAILY 06/28/23 06/28/23 History Past Med/Surg History Medical History Drug abuse Malingering Hyperlipidemia HTN (hypertension) Methamphetamine addiction Homelessness Bipolar disorder Depression with suicidal ideation Surgical History No pertinent past surgical history Family History Other No pertinent family history Social History Smoking Status: Current every day smoker Tobacco Type: Cigarettes Second Hand Exposure: Yes; Do You Dip or Chew Tobacco: No; Hx Alcohol Use: No Hx Substance Use: Yes (pt refused to answer) Non-Prescribed Medications: Crack / Cocaine Last Used Substance: Days (ago) Last Used Substance Other:: Last night Substance Use Type Other:: methadone Preferred Language: Sami Communication Ability: Effective Handstitching Machine Collar Feller Required: No Beliefs That Will Affect Care: None marital status: Single Current Living Situation: Boarding Home Feels Safe at Home: Yes Gender Identity: Male Assistive Devices: None Review of Systems Review of Systems: All systems reviewed & are unremarkable except as noted in HPI & below Physical Exam Physical Exam: General: patient resting comfortably, NAD, non-toxic in appearance, AA&O x 4 Skin: warm, dry, intact, no rashes or lesions HEENT: NC/AT, PERRL, EOMI, anicteric sclera, conjunctiva without injection, external ear normal to inspection and nontender, nares patent, moist mucus membranes, dentition intact, no oropharyngeal lesions, neck supple, trachea midline, no LAD, no thyromegaly, no JVD Heart: +S1/S2, regular, no m/r/g Lungs: equal air entry bilaterally, no rales/rhonchi/wheezes Abd: +BS, soft, NT/ND, no masses/organomegaly/ascites Ext: warm, 2+ pulses in UE/LE bilaterally, no clubbing/cyanosis or edema Neuro: nonfocal, patient AA&O x 4, speech intact, no facial droop, moving all extremities on command with equal strength 5/5 Results & Data Results & Data Vital Signs (Past 12 Hours) Vital Signs Pulse Pulse Resp BP BP Pulse Ox O2 Del Method 06/28/23 22:20 61 06/28/23 22:00 63 20 153/94 H 93 Nasal Cannula 06/28/23 21:00 57 L 15 157/101 H 92 Nasal Cannula 06/28/23 19:47 63 20 154/89 H 96 Nasal Cannula 06/28/23 19:40 87 L Room Air, Nasal Cannula 06/28/23 18:41 Nasal Cannula 06/28/23 18:39 69 20 158/103 H 87 L Room Air O2 Flow Rate 06/28/23 22:20 06/28/23 22:00 2 06/28/23 21:00 2 06/28/23 19:47 2 06/28/23 19:40 0 06/28/23 18:41 2 06/28/23 18:39 Laboratory Results Laboratory Results WBC 9.28 K/ul (4.8-10.8) 06/28/23 21:11 RBC 4.93 M/uL (4.70-6.10) 06/28/23 21:11 Hgb 14.6 g/dl (14.0-18.0) 06/28/23 21:11 Hct 46.7 % (42.0-52.0) 06/28/23 21:11 MCV 94.7 fL (80.0-100.0) 06/28/23 21:11 MCH 29.6 pg (25.0-34.0) 06/28/23 21:11 MCHC 31.3 g/dL (32.0-36.0) L 06/28/23 21:11 RDW Std Deviation 51.7 fL (36.4-46.3) H 06/28/23 21:11 RDW Coeff of Niko 15.0 % (11.5-14.5) H 06/28/23 21:11 Plt Count 358 K/uL (130-400) 06/28/23 21:11 MPV 9.3 fL (9.4-12.4) L 06/28/23 21:11 Immature Gran % (Auto) 5.0 % 06/28/23 21:11 Neut % (Auto) 40.6 % 06/28/23 21:11 Lymph % (Auto) 43.9 % 06/28/23 21:11 Coal % (Auto) 8.3 % 06/28/23 21:11 Eos % (Auto) 1.1 % 06/28/23 21:11 Baso % (Auto) 1.1 % 06/28/23 21:11 Neut # (Auto) 3.78 K/uL (1.40-6.50) 06/28/23 21:11 Lymph # (Auto) 4.07 K/uL (1.20-3.40) H 06/28/23 21:11 Coal # (Auto) 0.77 K/uL (0.11-0.59) H 06/28/23 21:11 Eos # (Auto) 0.10 K/uL (0.00-0.50) 06/28/23 21:11 Baso # (Auto) 0.10 K/uL (0.00-0.20) 06/28/23 21:11 Immature Gran # (Auto) 0.46 K/uL (0.01-0.20) H 06/28/23 21:11 Absolute Nucleated RBC 0.02 K/uL (0.00-0.12) 06/28/23 21:11 Nucleated RBC % (auto) 0.2 % 06/28/23 21:11 PT 10.9 Seconds (9.0-12.0) 06/28/23 22:52 INR 1.0 (0.9-1.1) 06/28/23 22:52 APTT 26 Seconds (21-31) 06/28/23 22:52 PTT Ratio 0.9 06/28/23 22:52 VBG pH 7.39 (7.36-7.41) 06/28/23 21:11 VBG pCO2 72 mmHg (38-50) H 06/28/23 21:11 VBG pO2 32 mmHg 06/28/23 21:11 VBG HCO3 44 mmol/L 06/28/23 21:11 VBG O2 Saturation < 60.0 % 06/28/23 21:11 VBG Base Excess 15.0 mEq/L 06/28/23 21:11 Sodium 138 mmol/L (136-145) 06/28/23 21:11 Potassium 3.9 mmol/L (3.5-5.1) 06/28/23 21:11 Chloride 97 mmol/L (98-107) L 06/28/23 21:11 Carbon Dioxide 38 mmol/L (21-32) H 06/28/23 21:11 Anion Gap 3 (3-11) 06/28/23 21:11 BUN 9 mg/dl (6-23) 06/28/23 21:11 Creatinine 0.66 mg/dl (0.6-1.4) 06/28/23 21:11 Est Cr Clr Drug Dosing 218.2 ml/min 06/28/23 21:11 Est GFR ( Amer) 132.5 ml/min 06/28/23 21:11 Est GFR (Non-Af Amer) 114.3 ml/min 06/28/23 21:11 BUN/Creatinine Ratio 13.6 (10-20) 06/28/23 21:11 Glucose 101 mg/dl (70-99(Fasting)) H 06/28/23 21:11 Calcium 9.1 mg/dl (8.6-10.3) 06/28/23 21:11 Magnesium 2.0 mg/dl (1.7-2.4) 06/28/23 21:11 Total Bilirubin 0.2 mg/dl (0.2-1.0) 06/28/23 21:11 AST 20 U/L (13-39) 06/28/23 21:11 ALT 15 U/L (7-52) 06/28/23 21:11 Alkaline Phosphatase 59 U/L (34-104) 06/28/23 21:11 Troponin I High Sens 5.2 pg/ml (0-20) 06/28/23 22:53 B-Natriuretic Peptide 71 pg/ml (0-100) 06/28/23 22:53 Total Protein 6.9 gm/dl (6.0-8.3) 06/28/23 21:11 Albumin 3.6 gm/dl (3.4-5.0) 06/28/23 21:11 Globulin 3.3 gm/dl (2.5-4.0) 06/28/23 21:11 Albumin/Globulin Ratio 1.1 (0.9-2) 06/28/23 21:11 Lipase 24 U/L (11-82) 06/28/23 21:11 Procalcitonin < 0.05 ng/ml (0-0.5) 06/28/23 21:11 Urine Color Yellow 06/28/23 21:20 Urine Appearance Clear (Clear) 06/28/23 21:20 Urine pH 8.5 (4.5-7.5) H 06/28/23 21:20 Ur Specific [place] 1.016 (1.000-1.030) 06/28/23 21:20 Urine Protein Negative (Negative) 06/28/23 21:20 Urine Glucose (UA) Negative (Negative) 06/28/23 21:20 Urine Ketones Trace (Negative) H 06/28/23 21:20 Urine Blood Negative (Negative) 06/28/23 21:20 Urine Nitrite Negative (Negative) 06/28/23 21:20 Urine Bilirubin Negative (Negative) 06/28/23 21:20 Urine Urobilinogen Negative (Negative) 06/28/23 21:20 Ur Leukocyte Esterase Negative (Negative) 06/28/23 21:20 Urine Opiates Screen Neg (Neg) 06/28/23 21:20 Ur Methadone, Qual Neg (Neg) 06/28/23 21:20 Urine Barbiturates Pos (Neg) H 06/28/23 21:20 Valproic Acid 62 mcg/ml (50-100) 06/28/23 21:11 Ur Phencyclidine (PCP) Neg (Neg) 06/28/23 21:20 U Amphetamin/Meth Scrn Neg (Neg) 06/28/23 21:20 MDMA (Ecstasy) Screen Neg (Neg) 06/28/23 21:20 U Benzodiazepines Scrn Neg (Neg) 06/28/23 21:20 Ur Cocaine Metabolite Neg (Neg) 06/28/23 21:20 U Marijuana (THC) Screen Neg (Neg) 06/28/23 21:20 Code Status & VTE Plan VTE Prophylaxis Plan VTE Prophylaxis will be ordered: Yes PG Care Time/CCT Total # of Minutes Spent Total Time Spent with Patient: Total time spent is greater than 50% in coordination of care (as documented) at patient's floor/unit and/or counseling patient: Coding Level of Care Code 53301 INT INP/OBS CARE 2/55MIN Diagnoses COVID-19 U07.1 Bipolar disorder F31.9 Hyperlipidemia E78.5 HTN (hypertension) I10 Homelessness Z59.0
[2023-06-28 23:38] LABS: Partial Thromboplastin Ratio 0.9; Partial Thromboplastin Time 26 Seconds (21-31); Prothrombin Time 10.9 Seconds (9.0-12.0)
[2023-06-28 23:39] LABS: Basophils % (auto) 1.1 %; Eosinophils % (auto) 1.1 %; Immature Granulocytes # (auto) 0.46 K/uL (0.01-0.20); Lymphocytes # (auto) 4.07 K/uL (1.20-3.40); Lymphocytes % (auto) 43.9 %; Monocytes # (auto) 0.77 K/uL (0.11-0.59); Monocytes % (auto) 8.3 %; Neutrophils # (auto) 3.78 K/uL (1.40-6.50); Neutrophils % (auto) 40.6 %
[2023-06-28] MEDS: MIRTAZAPINE TAB 15 MG TAB PO ONE (23:55)
[2023-06-29] MEDS ORDERED: ONDANSETRON INJ 2 MG/ML 2 ML VIAL IV PRN (00:18)
[2023-06-29] MEDS ORDERED: hydrOXYzine HCl 25 MG TAB PO PRN (00:18)
[2023-06-29] MEDS ORDERED: ALBUTEROL HFA 8 GM INHALER INH PRN (00:18)
[2023-06-29] MEDS ORDERED: ACETAMINOPHEN 325 MG TAB PO PRN (00:18)
[2023-06-29 05:53] LABS: Hematocrit (blood only) 45.7 % (42.0-52.0); Hemoglobin 14.9 g/dl (14.0-18.0); Mean Corpuscular Hemoglobin 30.2 pg (25.0-34.0); Mean Corpuscular Hgb Conc 32.6 g/dL (32.0-36.0); Mean Corpuscular Volume 92.7 fL (80.0-100.0); Platelet Count 355 K/uL (130-400); RDW Coefficient of Variation 14.9 % (11.5-14.5); RDW Standard Deviation 50.9 fL (36.4-46.3); Red Blood Count 4.93 M/uL (4.70-6.10); White Blood Count 7.07 K/ul (4.8-10.8)
[2023-06-29 05:58] LABS: BUN Creatinine Ratio 12.3 (10-20); Calcium 9.2 mg/dl (8.6-10.3); Creatinine Clr Calc Pharmacy 219.6 ml/min; Est GFR (African American) 133.3 ml/min; Potassium 4.9 mmol/L (3.5-5.1)
--- NOTE | 2023-06-29 06:03 | Discharge Summary ---
Date of Service June 29, 2023 Admission HPI Per Admitting Provider Jas Guerrero is a 47yo male presenting with shortness of breath. Patient was admitted to [facility] on 06/26/23 after presenting with the same. He was found to be POSITIVE for Covid-19 infection and hypoxic requiring supplemental O2 via NRB. Patient was treated with nebs and dexamethasone. He ultimately left AMA on the same day of admission. He returns to the ER now with ongoing shortness of breath. States that "he wishes that he never left". Mildly hypoxic in the ER to 87% on room air. No further complaints Admission Exam Per Admitting Provider General: patient resting comfortably, NAD, non-toxic in appearance, AA&O x 4 Skin: warm, dry, intact, no rashes or lesions HEENT: NC/AT, PERRL, EOMI, anicteric sclera, conjunctiva without injection, external ear normal to inspection and nontender, nares patent, moist mucus membranes, dentition intact, no oropharyngeal lesions, neck supple, trachea midline, no LAD, no thyromegaly, no JVD Heart: +S1/S2, regular, no m/r/g Lungs: equal air entry bilaterally, no rales/rhonchi/wheezes Abd: +BS, soft, NT/ND, no masses/organomegaly/ascites Ext: warm, 2+ pulses in UE/LE bilaterally, no clubbing/cyanosis or edema Neuro: nonfocal, patient AA&O x 4, speech intact, no facial droop, moving all extremities on command with equal strength 5/5 Principal Diagnosis hypoxia, COVID-19 Discharge Exam Unable to examine patient prior to him leaving AMA Discharge Data Allergies Allergy/AdvReac Type Severity Reaction Status Date / Time aripiprazole [From Abilify] AdvReac Severe Agitated Verified 06/28/23 22:35 Consultations 06/28/23 22:00 ED Decision to Admit Stat Hospital Course (1) Hypoxic: (2) Polysubstance abuse: (3) COVID-19: (4) Acute hyponatremia: (5) Illness: Plan I was notified that Mr. Guerrero wanted to leave AMA and told nursing I would come to bedside to discuss. However, patient told nursing that he did not want to see the doctor and wants to leave AMA right now. Patient was provided AMA forms and left. I was unable to examine the patient on the day of discharge. Total Time Total Time Spent Total Time Spent (In Minutes): . Discharge Plan Discharge Items Patient Disposition: Against Medical Advice Reason For Visit: SHORTNESS OF BREATH, COVID Activity: Resume your previous activity Non-emergency contact: Primary Care Provider Follow-up/Referrals: PCP,NO [Primary Care Provider] - Pending Studies at Discharge: Yes (CBC, BMP pending from morning labs at time of patient leaving) Stand-Alone Forms: My [facility], Smoking Cessation Medications and DC Order Prescriptions: Continued divalproex [Depakote ER] 500 mg Tablet Extended Release 24 Hr 1,500 mg PO BID Rx Instructions: 3 tablet dose venlafaxine [Effexor XR] 150 mg Capsule,Extended Release 24hr 150 mg PO QAM lisinopril 10 mg tablet 10 mg PO DAILY mirtazapine 15 mg tablet 15 mg PO HS buspirone 10 mg tablet 10 mg PO TID albuterol sulfate 90 mcg/actuation HFA aerosol inhaler 2 puff INHALATION QID PRN (Reason: Wheezing) Rx Instructions: PER PT "DON'T HAVE AT HOME" benztropine 1 mg tablet 1 mg PO BID Rx Instructions: PER PT "NOT REGULARLY" clonazepam 1 mg tablet 0.5 mg PO QID ziprasidone HCl 60 mg capsule 60 mg PO BID Rx Instructions: PER PT "DON'T TAKE" hydroxyzine pamoate 25 mg capsule 25 mg PO BID PRN (Reason: As Directed) atorvastatin 40 mg tablet 40 mg PO DAILY Discharge Orders: Left Against Medical Advice (Routine); Ordered 06/29/23 Ordered By: Shira Bonilla Admission Data Admit Date/Time: 06/28/23 22:56 Attending Provider: Kelsi Hoyt Admit Provider: Mercy Flood Primary Care Provider: PCP,NO Other Providers: Mercy Flood Supervising Physician Co-Signing Physician Notes Patient admitted by me earlier in the evening. He did demonstrate understanding of his current condition. I did encourage him to stay in the hospital for ongoing treatment at the time of admission as the patient has history of leaving AMA.
--- NOTE | 2023-06-29 07:03 | XRay Report ---
XR chest 1V portable CLINICAL HISTORY: Chest pain, nonspecific TECHNIQUE: Single frontal radiograph of the chest was obtained. Comparison: Comparison is made to chest radiograph 06/26/2023 FINDINGS: No lines and tubes are seen. Cardiomegaly is noted. Prominence and cephalization of the vasculature i s seen. Bilateral perihilar airspace opacities are seen. No evidence of pleural effusion or pneumotho rax. IMPRESSION: 1. Bilateral perihilar airspace opacities. This may represent atelectasis, pneumonia, and/or aspirat ion. 2. Cardiomegaly and mild pulmonary edema. ACT 112: Negative or not required by law. Electronically signed by: Jamal Caraballo M.D. 06/29/2023 7:02 AM
[2023-06-29] MEDS ORDERED: ENOXAPARIN INJ 40 MG/0.4 ML SYR SQ SCH (08:00)
[2023-06-29] MEDS ORDERED: ATORVASTATIN 40 MG TAB PO SCH (09:00)
[2023-06-29] MEDS ORDERED: busPIRone 5 MG TAB PO SCH (09:00)
[2023-06-29] MEDS ORDERED: DIVALPROEX EXTENDED RELEASE 500 MG TAB PO SCH (09:00)
[2023-06-29] MEDS ORDERED: BENZTROPINE MESYLATE 1 MG TAB PO SCH (09:00)
[2023-06-29] MEDS ORDERED: clonazePAM 0.5 MG TAB PO SCH (09:00)
[2023-06-29] MEDS ORDERED: dexAMETHasone 6 MG in SYRINGE 0 ML IV SCH (09:00)
[2023-06-29] MEDS ORDERED: VENLAFAXINE HCL XR 150 MG CAPXR PO SCH (09:00)
[2023-06-29] MEDS ORDERED: lisinopril 10 MG TAB PO SCH (09:00)
[2023-06-29] MEDS ORDERED: NICOTINE 21 MG/24 HR TDSY TD SCH (09:00)
--- NOTE | 2023-06-29 11:45 | Electrocardiogram Report ---
Test Reason : Blood Pressure : / mmHG Vent. Rate : 060 BPM Atrial Rate : 060 BPM P-R Int : 158 ms QRS Dur : 114 ms QT Int : 444 ms P-R-T Axes : 057 -85 056 degrees QTc Int : 444 ms Normal sinus rhythm Possible Left atrial enlargement Left axis deviation Right bundle branch block Anterior infarct (cited on or before 26-JUN-2023) Abnormal ECG When compared with ECG of 26-JUN-2023 02:20, Questionable change in initial forces of Septal leads T wave inversion now evident in Anterior leads Confirmed by Jas Abdul ([id number]) on 06/29/2023 11:44:57 AM Referred By: REFERRED SELF Confirmed By:Jas Abdul
[2023-06-29] MEDS ORDERED: MIRTAZAPINE TAB 15 MG TAB PO SCH (21:00)
[2023-06-30 15:32] LABS: Amobarbital, Urine Conf NEGATIVE ng/mL (<100); Butalbital, Urine NEGATIVE ng/mL (<100); Pentobarbital, Urine Conf NEGATIVE ng/mL (<100); Phenobarbital, Urine 3780 ng/mL (<100); Secobarbital, Urine Conf NEGATIVE ng/mL (<100)
== END 2023-06-29 05:50 | disposition left against medical advice (07) | DRG 178 ==
LOC: ED 18:08 → SUATTDRO 22:56 → 3E 22:56

== ENCOUNTER 2023-07-08 21:42 | Observation (INO) ==
--- OUTSIDE RECORDS SUMMARY | 2023-07-08 21:48 | External Medical Summary | Summary of Care ---
Author Name Unknown Organization [facility] Address [address] [place] [address] Phone [phone] Care Team Providers Care Interventional Sale Consultant Name Role Phone Unavailable Primary Care Provider Unavailabl e Reason for Visit * Reason Onset Date Comments Med Request 06/30/2023 Encounter Details Date Type Department Care Team ([facility] st Contact Info) Description 06/30/2023 Telephone [facility] [address] [place] [address] Brigid Chapman MD [address] [place] [address] Med Request Allergies Active Allergy Reactions Criticality Noted Date Comments Aripiprazole 01/28/2013 Aripiprazole 05/01/2019 Other Reaction(s): agitated Tramadol 12/01/2015 documented as of this encounter (statuses as of 06/30/2023) Medications Medication Sig Dispensed Refills Start Date End Date Status ibuprofen (MOTRIN) 200 MG Tablet Take 3 Tablets by mouth every 8 hours as needed for Pain. 0 Active ADACEL 5-2-15.5 LF-MCG/0.5 SUSP 0 09/07/2018 Active clonazePAM (KLONOPIN) 0.5 MG Tablet Take 1 Tab by mouth 2 times a day. 14 Tab 3 12/11/2018 Active Additional Information Patient taking differently:0.5 mg [id number], 4 times a day and as needed, Reported on 04/26/2023 divalproex ER (DEPAKOTE ER) 500 MG [id number]:Bip olar 1 disorder (HCC) 3 tabs twice a day 180 Tab 0 12/11/2018 Active venlafaxine XR (EFFEXOR XR) 150 MG [id number]:Bip olar 1 disorder (HCC) Take 1 Cap by mouth daily. In the morning. 30 Cap 0 12/11/2018 Active ziprasidone (GEODON) 60 MG CapsuleIndications: Bipolar 1 disorder (HCC) Take 1 Cap by mouth 2 times a day with morning and evening meals. 60 Cap 0 12/11/2018 Active Mirtazapine 15 MG Oral Tablet (Remeron) Take 1 Tablet by mouth at bedtime. 0 Active busPIRone HCl 10 MG Oral Tablet (Buspar) Take 1 Tablet by mouth in the morning and 1 Tablet at noon and 1 Tablet before bedtime. 0 Active Methadone 50 mg/ml oral soln (ECH) Take 0.96 mL by mouth. 0 Active Lisinopril 10 MG Oral Tablet (Prinivil)Indicatio ns:HTN, goal below 140/90 Take 1 Tablet by mouth in the morning. 90 Tablet 2 06/30/2023 Active Ventolin HFA 108 (90 Base) MCG/ACT Inhalation Aerosol SolutionIndications :Wheezing Inhale 2 Puffs by mouth every 4 hours as needed for Wheezing. 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 Bipolar 1 disorder, mixed, moderate 03/16/2019 Methamphetamine abuse 11/21/2018 Bipolar I disorder, most recent episode hypomani c 11/21/2018 Essential hypertension 11/09/2015 Overview: Per HTN Protocol Last Assessment & Plan: BP stable Continue lisinopril Bipolar 1 disorder 02/12/2014 Obesity 01/09/2014 Tobacco abuse 01/09/2014 Personality disorder 06/30/2013 documented as of this encounter (statuses as of 06/30/2023) Resolved Problems Problem Noted Date Diagnosed Date Resolved Date Acute respiratory failure with hypoxia 04/16/2015 11/21/2018 Shortness of breath 04/16/2015 11/22/19 19 Cough 04/16/2015 11/21/2018 Fever 04/16/2015 11/21/2018 HTN (hypertension) 01/09/2014 6 Overview: Per HTN Protocol documented as of this encounter (statuses as of 06/30/2023) Immunizations Name Administration Dates Next Due Pneumococcal Conjugate Vacc, 13 Valent (Prevnar) 04/12/2016 Pneumococcal Polysaccharide PPV23 (Pneumovax) Seasonal Influenza, Quadrivalent, No Preserve, I M 03/02/2018 Seasonal Influenza, Split, IIV3, With Preserve, Inj 02/12/2014 TDAP (age 11 and older)(Adacel) 09/07/2018 documented as of this encounter Social History Tobacco Use Types Packs/Day Years Used Date Smoking Tobacco: Every Day Cigarettes 1 25 Pipe Smokeless Tobacco: Never Alcohol Use Standard Drinks/Week Comments No 0 (1 standard drink = 0.6 oz pur e alcohol) currently denies PHQ-2 Answer Date Recorded PHQ-2 Score 9 12/11/2018 Hunger Vital Sign Answer Date Recorded Within the past 12 months, y ou worried that your food would run out before you got the money to buy more. Often true 03/12/20 23 Within the past 12 months, t he food you bought just didn't last and you didn't have money to get more. Often true 03/12/2023 Sex and Gender Information Value Date Recorded Sex Assigned at Male 03/12/2023 6:47 PM EDT Gender Identity Male 03/12/2023 6:47 PM EDT Sexual Orientation Straight 03/12/2023 6: 47 PM EDT Job Start Date Occupation Industry Not on file Not on file Not on file documented as of this encounter Miscellaneous Notes * Telephone Encounter - Brigid Chapman MD - 06/30/2023 1:11 PM EST signed * Telephone Encounter - Ariana Rose CPhT - 06/30/2023 9:58 AM EST Patient calling to request a refill on albuterol inhaler not on med list ,patient was not sure of last ordering provider please order if appropriate patient uses [place] [facility] Thank you, Ariana Rose [employer] Application Developer [employer] [facility] ([facility] 06/30/2023 9:58 AM documented in this encounter Plan of Treatment Upcoming Encounters Date Type Department Care Team (Late st Contact Info) Description 08/07/2023 3:20 PM EDT Telemedicine [facility] [address] [place] [address] Lynda Samuel PA-C [address] [place] [address] Health Maintenance Due Date Last Done Comments Hepatitis B (1 of 3 - 3-dose series) 1974 COVID-19 Vaccine (#1) 03/04/1975 HIV Screening 1989 Albumin/Creatinine Ratio 1992 Hepatitis C Screening 1992 Cologuard 09/03/2019 Colonoscopy 09/03/2019 Colorectal Cancer Screening 09/03/2019 Fecal Occult Blood Test 09/03/2019 Sigmoidoscopy 09/03/2019 Depression Screening 12/12/2019 12/11/2018 GFR 12/22/2020 12/23/2019, 11/27, 12/14/2019, Additional history exists Diabetes Screening 12/22/2022 12/23/2019, 0 12/16/2019, 12/14/2019, Additional history exists Influenza Vaccine (FLU shot) (#1) 2023 03/02/2018, 02/12/2014 Lipid Panel 12/15/2024 12/16/2019, 12/0 12/2018, 06/20/2014 DTaP,Tdap,and Td Vaccines (2 - Td or Tdap) 09/07/2028 09/07/2018 Pneumococcal Vaccine: Pediatrics (0 to 5 Years) and At-Risk Patients (6 to 64 Years) (3 - PPSV23 or PCV20) 09/03/2039 11/21/2018, 04/12/2016 GARDASIL-HPV IMMUNIZATION SERIES Aged Out No longer eligible based on patient's age to complete this topic MENINGOCOCCAL (MENACTRA/MENVEO) Aged Out No longer eligible based on patient's age to complete this topic documented as of this encounter Medical Devices Not on filedocumented as of this encounter Visit Diagnoses Diagnosis Wheezing- Primary documented in this encounter Advance Directives Latest Code Status on File Code Status Date Activated Date Inactivated Comments Full Code 08/19/2015 1:00 AM 08/19/2015 6:33 PM This order reflects the patients wishes and were consensually agreed upon. Question Answer Comments Discussion of Advance Directives occurred with: Patient Does the patient have a Living Will? No Does the patient have Health Care Power of [employer] Terminal Operator? No Code Status History Code Status Date Activated Date Inactivated Comments Full Code 05/31/2015 10:46 PM 06/01/2015 5:31 PM This o rder reflects the patients wishes and were consensually agreed upon. Full Code 04/16/2015 12:11 AM 04/18/2015 7:12 PM Th is order reflects the patients wishes and were consensually agreed upon. Question Answer Comments Discussion of Advance Directives occurred with: Patient Full Code 12/22/2014 12:48 AM 12/23/2014 3:54 PM This order reflects the patients wishes and were consensually agreed upon. Question Answer Comments Discussion of Advance Directives occurred with: Not Discussed Does the patient have a Living Will? No Does the patient have Health Care Power of [employer] Operator? No
--- OUTSIDE RECORDS SUMMARY | 2023-07-08 21:48 | External Medical Summary | Summary of Care ---
Author Name Unknown Organization [facility] Address [address] [place] [address] Phone [phone] Care Team Providers Care Procurement Assistant Name Role Phone Unavailable Primary Care Provider Unavailabl e Reason for Visit * Reason Onset Date Comments Medication Refill 06/30/2023 Encounter Details Date Type Department Care Team ([facility] st Contact Info) Description 06/30/2023 Refill [facility] [address] [place] [address] Cholo Monroe MD [address] [place] [address] HTN, goal below 140/90 Allergies Active Allergy Reactions Criticality Noted Date [...] Active Additional Information Patient taking differently:0.5 mg [id number], 4 times a day and as needed, Reported on 04/26/2023 divalproex ER (DEPAKOTE ER) 500 MG [id number]: Bipolar 1 disorder (HCC) 3 tabs twice a day 180 Tab 0 12/11/2018 Active venlafaxine XR (EFFEXOR XR) 150 MG [id number]: Bipolar 1 disorder (HCC) Take 1 Cap by mouth daily. In the morning. 30 Cap 0 12/11/2018 Active ziprasidone (GEODON) 60 MG CapsuleIndicatio ns:Bipolar 1 disorder (HCC) Take 1 Cap by [...] 0 Active Lisinopril 10 MG Oral Tablet (Prinivil)Indica tions:HTN, goal below 140/90 Take 1 Tablet by mouth in the morning. 90 Tablet 2 06/30/2023 Active Lisinopril 10 MG Oral Tablet (Prinivil)Indica tions:HTN, goal below 140/90 Take 1 Tablet by mouth in the morning. 90 Tablet 3 03/13/2023 06/30/2023 Discontinue d(Refill) documented as of this encounter (statuses as [...] encounter Miscellaneous Notes * Telephone Encounter - Emerita Porras, [facility] - 06/30/2023 10:05 AM EST Signed Prescriptions: Disp Refills Lisinopril 10 MG Oral Tablet (Prinivil) 90 Tab*2 Sig: Take 1 Tablet by mouth in the morning. Authorizing Provider: CHOLO MONROE Ordering User: EMERITA PORRAS * Telephone Encounter - Ariana Rose CPhT - 06/30/2023 9:55 AM EST Please reroute Rx to [facility] [address] [place] [address]. Pending Prescriptions: Disp Refills Lisinopril 10 MG Oral Tablet (Prinivil) 90 Tab*2 Sig: Take 1 Tablet by mouth in the morning. Last Visit: Visit date not found (in office), 03/13/2023 (telemedicine) 08/07/2023 If no future appointments scheduled, and last appointment is greater than a year ago, please schedule patient for a follow-up appointment Last date the medication was ordered: [id number] Patient Phone Numbers Labs: Lab Results Component Value Date/Time CREAT 0.64 12/23/2019 07:51 AM CREAT 0.7 06/21/2018 07:47 PM POTASSIUM 4.1 12/23/2019 07:51 AM POTASSIUM 4.1 06/21/2018 07:47 PM TSH 1.67 02/09/2019 12:00 AM TSH 1.62 08/19/2015 07:03 AM LDLCALC 233 (H) 12/16/2019 06:02 AM LDLCALC 244 (H) 06/20/2014 07:52 AM ALT 21 12/23/2019 07:51 AM ALT 28 08/19/2015 07:03 AM documented in this encounter Plan of Treatment Upcoming Encounters Date Type Department Care Team (Late st Contact Info) Description 08/07/2023 3:20 PM EDT Telemedicine [facility] [address] [facility] [id number] Lynda Samuel PA-C [address] [place] [address] Health Maintenance Due Date Last Done Comments [...] 2023 03/02/2018, 02/12/2014 Lipid Panel 12/15/2024 12/16/2019, 12/12/2018, 06/20/2014 DTaP,Tdap,and Td Vaccines (2 - Td [...] as of this encounter Visit Diagnoses Diagnosis HTN, goal below 140/90 Unspecified essential hypertension documented in this encounter Advance Directives Latest Code Status on File Code Status Date Activated Date Inactivated Comments Full Code 08/19/2015 1:00 AM 08/19/2015 6:33 PM This order reflects the patients wishes and were consensually agreed upon. Question Answer Comments Discussion of Advance Directives occurred with: Patient Does the patient have a Living Will? No Does the patient have Health Care Power of Molded Goods Controls Operator? No Code Status History Code Status [...] the patient have Health Care Power of Molded Goods Controls Operator? No
[2023-07-08 22:16] LABS: Hematocrit (blood only) 44.5 % (42.0-52.0); Hemoglobin 14.6 g/dl (14.0-18.0); Mean Corpuscular Hemoglobin 30.3 pg (25.0-34.0); Mean Corpuscular Hgb Conc 32.8 g/dL (32.0-36.0); Mean Corpuscular Volume 92.3 fL (80.0-100.0); Mean Platelet Volume 10.3 fL (9.4-12.4); Platelet Count 284 K/uL (130-400); Red Blood Count 4.82 M/uL (4.70-6.10); White Blood Count 12.36 K/ul (4.8-10.8)
[2023-07-08 22:17] LABS: Appearance Urine Clear (Clear); Bilirubin Urine Negative (Negative); Blood Urine Negative (Negative); Color Urine Yellow; Glucose Urine UA Negative (Negative); Ketones Urine Trace (Negative); Leukocyte Esterase Urine Negative (Negative); Nitrite Urine Negative (Negative); Protein Urine Negative (Negative); Specific Gravity Urine 1.025 (1.000-1.030); Urobilinogen Urine Negative (Negative); pH Urine 8.5 (4.5-7.5)
--- NOTE | 2023-07-08 22:21 | Emergency Department Note ---
Impression & Plan Suicidal ideation, Depression ED Provider Note HISTORY OF PRESENT ILLNESS: Patient is a 47-year-old male presenting with suicidal ideation. Patient reports he wants to kill himself. He states that he has been very depressed "for a while." He states that he has a plan to end his life via overdose. He states that he talks with his psychiatrist over the phone but "it has not been helping.". He reports that he used Suboxone that he got from a friend yesterday but no recent methamphetamine use. Patient is homeless and was recently kicked out of the homeless custodial. Denies any chest pain or shortness of breath. ROS: as above PHYSICAL EXAM: Constitutional: Patient appears in no acute distress. HENT: Head: Normocephalic and atraumatic. Eyes: EOMI, PERRL Mouth/Throat: Mucous membranes moist. Neck: Trachea midline. Neck supple. Musculoskeletal: No edema, tenderness or deformity noted. Skin: Warm and dry. No rash, erythema, pallor or cyanosis Psychiatric: Appropriate mood and affect for situation. Neurological: Alert and keenly responsive. CN II-XII grossly intact, moving all extremities equally and fully. MDM: - Vitals signs stable. - History obtained via patient. Patient presents with suicidal ideation. Patient reports he was to kill himself via an overdose. He reports has been depressed for a while. He states that he got Suboxone from from yesterday but has not been using any other drugs. He is currently homeless. Denies any chest pain or shortness of breath - Chronic conditions affecting care: bipolar disorder; depression; HTN; HLD - Differential diagnoses include, but are not limited to: depression; UTI; alcohol intoxication; drug intoxication - External medical records reviewed. Discharge summary dated 06/29/2023 was reviewed. He was admitted for his COVID shortness of breath and hypoxia. He left AMA on same day of admission. - Laboratory workup interpreted by myself showed leukocytosis (WBC 12.36); normal electrolytes; negative acetaminophen/salicylate/alcohol levels - Patient did test positive for COVID. However, he has no acute symptoms. This is still a residual positive - UA negative - UDS positive for barbiturates. -Patient evaluated with behavioral health patient care technician. Patient reports that "I am suicidal and if you discharge me I am going to kill myself." Patient has been seen multiple times in the emergency department and has been admitted recently and signed out AGAINST MEDICAL ADVICE. He reports that he wants to end his life while overdosing. Unfortunately, given his positive COVID status, cannot be placed in inpatient psychiatric facility at this time. Will admit him to the medicine service for inpatient psychiatric consultation in the AM. - Hospitalist consulted for admission - Patient admitted to [facility] service for further evaluation and management. ASSESSMENT AND PLAN: Diagnosis: suicidal ideation; depression Plan: admit Past Med/Surg History Medical History Drug abuse Malingering Hyperlipidemia HTN (hypertension) Methamphetamine addiction Homelessness Bipolar disorder Depression with suicidal ideation Surgical History No pertinent past surgical history Family History Other No pertinent family history Social History Smoking Status: Current every day smoker Tobacco Type: Cigarettes Second Hand Exposure: Yes; Do You Dip or Chew Tobacco: No; Hx Alcohol Use: No Hx Substance Use: Yes (pt refused to answer) Non-Prescribed Medications: Crack / Cocaine Last Used Substance: Days (ago) Last Used Substance Other:: Last night Substance Use Type Other:: methadone Preferred Language: Japanese Communication Ability: Effective Psychodramatist Required: No Beliefs That Will Affect Care: None marital status: Single Current Living Situation: Boarding Home Feels Safe at Home: No Is there a partner from a previous relationship who is making you feel unsafe now?: No Gender Identity: Male Assistive Devices: None Allergies Allergies Allergy/AdvReac Type Severity Reaction Status Date / Time aripiprazole [From Abilify] AdvReac Severe Agitated Verified 06/28/23 22:35 Home Meds Home Medications Medication Instructions Recorded Confirmed divalproex 500 mg tablet,extended 1,500 mg PO BID 06/16/19 06/28/23 release 24 hr (Depakote ER) venlafaxine 150 mg 150 mg PO QAM 06/16/19 06/28/23 capsule,extended release 24 hr (Effexor XR) lisinopril 10 mg tablet 10 mg PO DAILY 01/19/20 06/28/23 mirtazapine 15 mg tablet 15 mg PO HS 01/19/20 06/28/23 clonazepam 1 mg tablet 0.5 mg PO QID 04/17/21 06/28/23 ziprasidone HCl 60 mg capsule 60 mg PO BID 06/23/22 06/28/23 albuterol sulfate 90 mcg/actuation 2 puff inhalation QID PRN Wheezing 09/06/22 06/28/23 aerosol inhaler buspirone 10 mg tablet 10 mg PO TID 09/06/22 06/28/23 benztropine 1 mg tablet 1 mg PO BID 06/09/23 06/28/23 hydroxyzine pamoate 25 mg capsule 25 mg PO BID PRN As Directed 06/26/23 06/28/23 atorvastatin 40 mg tablet 40 mg PO DAILY 06/28/23 06/28/23 Results & Data (ED) Vital Signs Vital Signs - 24 hr 07/08/23 21:31 07/08/23 21:31 Temperature 36.9 C Temperature Source Temporal Artery Scan Pulse Rate 78 Respiratory Rate 20 Respiratory Effort / Characteristics Non-Labored Spontaneous Respiratory Depth Normal Blood Pressure 135/89 Blood Pressure Mean 104 Pulse Oximetry 93 Oxygen Delivery Method Room Air Room Air Sepsis New/Unexplained Change in Mental Status No Sepsis Action Taken by Nursing No Action Required Laboratory Data 07/08/23 21:53 07/08/23 21:53 Lab Results 07/08/23 Range/Units 21:53 WBC 12.36 H (4.8-10.8) K/ul RBC 4.82 (4.70-6.10) M/uL Hgb 14.6 (14.0-18.0) g/dl Hct 44.5 (42.0-52.0) % MCV 92.3 (80.0-100.0) fL MCH 30.3 (25.0-34.0) pg MCHC 32.8 (32.0-36.0) g/dL RDW Std Deviation 51.0 H (36.4-46.3) fL RDW Coeff of Niko 15.0 H (11.5-14.5) % Plt Count 284 (130-400) K/uL MPV 10.3 (9.4-12.4) fL Immature Gran % (Auto) 0.3 % Neut % (Auto) 45.4 % Lymph % (Auto) 40.0 % Ransom % (Auto) 11.8 % Eos % (Auto) 1.9 % Baso % (Auto) 0.6 % Neut # (Auto) 5.61 (1.40-6.50) K/uL Lymph # (Auto) 4.94 H (1.20-3.40) K/uL Ransom # (Auto) 1.46 H (0.11-0.59) K/uL Eos # (Auto) 0.24 (0.00-0.50) K/uL Baso # (Auto) 0.07 (0.00-0.20) K/uL Immature Gran # (Auto) 0.04 (0.01-0.20) K/uL RBC Morphology Unremarkable Sodium 135 L (136-145) mmol/L Potassium 4.6 (3.5-5.1) mmol/L Chloride 98 (98-107) mmol/L Carbon Dioxide 32 (21-32) mmol/L Anion Gap 5 (3-11) BUN 12 (6-23) mg/dl Creatinine 0.63 (0.6-1.4) mg/dl Est Cr Clr Drug Dosing Not Reportable Est GFR ( Amer) 135.1 ml/min Est GFR (Non-Af Amer) 116.5 ml/min BUN/Creatinine Ratio 19.0 (10-20) Glucose 101 H (70-99(Fasting)) mg/dl Calcium 9.0 (8.6-10.3) mg/dl Total Bilirubin 0.3 (0.2-1.0) mg/dl AST 16 (13-39) U/L ALT 15 (7-52) U/L Alkaline Phosphatase 58 (34-104) U/L Total Protein 7.2 (6.0-8.3) gm/dl Albumin 4.0 (3.4-5.0) gm/dl Globulin 3.2 (2.5-4.0) gm/dl Albumin/Globulin Ratio 1.3 (0.9-2) TSH 1.694 (0.300-4.500) uIu/ml Urine Color Yellow Urine Appearance Clear (Clear) Urine pH 8.5 H (4.5-7.5) Ur Specific [place] 1.025 (1.000-1.030) Urine Protein Negative (Negative) Urine Glucose (UA) Negative (Negative) Urine Ketones Trace H (Negative) Urine Blood Negative (Negative) Urine Nitrite Negative (Negative) Urine Bilirubin Negative (Negative) Urine Urobilinogen Negative (Negative) Ur Leukocyte Esterase Negative (Negative) Salicylates < 3.0 L (3.0-30) mg/dl Urine Opiates Screen Neg (Neg) Ur Methadone, Qual Neg (Neg) Acetaminophen < 3 L (10-30) ug/ml Urine Barbiturates Pos H (Neg) Ur Phencyclidine (PCP) Neg (Neg) U Amphetamin/Meth Scrn Neg (Neg) MDMA (Ecstasy) Screen Neg (Neg) U Benzodiazepines Scrn Neg (Neg) Ur Cocaine Metabolite Neg (Neg) U Marijuana (THC) Screen Neg (Neg) Ethyl Alcohol mg/dL < 10.0 (<10.0) mg/dl SARS-CoV-2 (PCR) POSITIVE A* (Negative) Influenza Type A (PCR) Negative (Neg) Influenza Type B (PCR) Negative (Neg) RSV (RT-PCR) Negative (Neg) Discharge Plan Visit Data Chief Complaint: Mental Health Evaluation Stated Complaint: SI ED Provider: Eleanor Mitchell Discharge Problem: Suicidal ideation, Depression Forms Stand Alone Forms: My [facility], Suicide Prevention Resources Prescriptions Prescriptions: No Action divalproex [Depakote ER] 500 mg Tablet Extended Release 24 Hr 1,500 mg PO BID Rx Instructions: 3 tablet dose venlafaxine [Effexor XR] 150 mg Capsule,Extended Release 24hr 150 mg PO QAM lisinopril 10 mg tablet 10 mg PO DAILY mirtazapine 15 mg tablet 15 mg PO HS buspirone 10 mg tablet 10 mg PO TID albuterol sulfate 90 mcg/actuation HFA aerosol inhaler 2 puff INHALATION QID PRN (Reason: Wheezing) Rx Instructions: PER PT "DON'T HAVE AT HOME" benztropine 1 mg tablet 1 mg PO BID Rx Instructions: PER PT "NOT REGULARLY" clonazepam 1 mg tablet 0.5 mg PO QID ziprasidone HCl 60 mg capsule 60 mg PO BID Rx Instructions: PER PT "DON'T TAKE" hydroxyzine pamoate 25 mg capsule 25 mg PO BID PRN (Reason: As Directed) atorvastatin 40 mg tablet 40 mg PO DAILY Referrals Referrals: PCP,NO [Primary Care Provider] -
[2023-07-08 22:31] LABS: Acetaminophen < 3 ug/ml (10-30); Salicylate < 3.0 mg/dl (3.0-30)
[2023-07-08 22:33] LABS: Alanine Aminotransferase 15 U/L (7-52); Albumin Globulin Ratio 1.3 (0.9-2); Alkaline Phosphatase 58 U/L (34-104); Anion Gap 5 (3-11); Aspartate Aminotransferase 16 U/L (13-39); Bilirubin,Total 0.3 mg/dl (0.2-1.0); Blood Urea Nitrogen 12 mg/dl (6-23); Carbon Dioxide 32 mmol/L (21-32); Chloride 98 mmol/L (98-107); Est GFR (African American) 135.1 ml/min; Est GFR (Non-African American) 116.5 ml/min; Globulin 3.2 gm/dl (2.5-4.0); Glucose 101 mg/dl (70-99(Fasting)); Potassium 4.6 mmol/L (3.5-5.1); Sodium 135 mmol/L (136-145); Total Protein 7.2 gm/dl (6.0-8.3)
[2023-07-08 22:48] LABS: Thyroid Stimulating Hormone 1.694 uIu/ml (0.300-4.500)
[2023-07-08 22:55] LABS: Influenza A virus by PCR Negative (Neg); Influenza B virus by PCR Negative (Neg); RSV by PCR Negative (Neg); SARS CoV2 RNA(COVID-19) Ceph POSITIVE (Negative)
[2023-07-08 23:08] LABS: Amphetamines+Metham, Urine Neg (Neg); Barbiturates, Urine Pos (Neg); Benzodiazepine, Urine Neg (Neg); Cocaine, Urine Neg (Neg); MDMA (Ecstacy), Urine Neg (Neg); Marijuana, Urine Neg (Neg); Methadone, Urine Neg (Neg); Opiate, Urine Neg (Neg); Phencyclidine, Urine Neg (Neg)
[2023-07-08 23:19] LABS: Basophils # (auto) 0.07 K/uL (0.00-0.20); Basophils % (auto) 0.6 %; Eosinophils # (auto) 0.24 K/uL (0.00-0.50); Eosinophils % (auto) 1.9 %; Immature Granulocytes # (auto) 0.04 K/uL (0.01-0.20); Immature Granulocytes % (auto) 0.3 %; Lymphocytes # (auto) 4.94 K/uL (1.20-3.40); Monocytes # (auto) 1.46 K/uL (0.11-0.59); Monocytes % (auto) 11.8 %; Neutrophils # (auto) 5.61 K/uL (1.40-6.50); Neutrophils % (auto) 45.4 %; RBC Morphology Unremarkable
--- NOTE | 2023-07-09 01:24 | History & Physical Report ---
Date of Service July 09, 2023 Assessment & Plan (1) Suicidal ideation: Plan: -Patient with suicidal ideation with plan. -Urine tox screen positive for barbiturates. Pending exact substance. Blood alcohol negative. -Suicidal checks in place. -Psych consulted, appreciate recommendations. (2) COVID-19: Plan: -Patient was COVID-positive on 06/26 and 07/08. -No symptoms of COVID, vital signs stable. Satting 93% on room air. -Slight leukocytosis of 12, will repeat CBC in the morning. -Will hold off on any treatment. (3) Bipolar disorder: Plan: -Patient with Bipolar disorder, Anxiety and Depression as well as polysubstance abuse. -He is on quite a few psychotropic agents. No recent notes from Psychiatric services -Continue Venlafaxine 150mg po qAM, Buspirone 10mg po TID, Clonazepam 0.5mg po QID and Hydroxyzine PRN for anxiety -Continue Divalproex 1500mg po BID, Ziprasidone 60mg po BID and Cogentin 1mg po BID for BiPolar disorder -Remeron qhs -Appreciate psychiatric evaluation given the amount of substances patient is on and has not seen psychiatric services in some time. (4) Hyperlipidemia: Plan: -Chronic, continue atorvastatin. (5) HTN (hypertension): Plan: Chronic, continue lisinopril. History of Present Illness Chief Complaint: Suicide ideation Primary Care Provider: NO PCP Patient is a 47-year-old male with past medical history of bipolar disorder, depression, hypertension, and hyperlipidemia who presented to the hospital with suicidal ideation. Patient states that he has been depressed for a while. He plans to commit suicide by overdose. Patient is homeless and was recently kicked out of a homeless mcc. Denies any chest pain or shortness of breath. Does state that he got some Suboxone from a friend yesterday. In the ED patient vital signs were stable. CBC showed a mild leukocytosis of 12 otherwise benign. CMP was benign. UA showed trace ketones. Urine showed positive barbiturates. Patient was also COVID-positive, though was COVID- positive on 06/26. Negative for flu and RSV. Would admit to psych services though must be COVID-negative. Allergies Allergy/AdvReac Type Severity Reaction Status Date / Time aripiprazole [From Abilify] AdvReac Severe Agitated Verified 06/28/23 22:35 Home Medications Medication Instructions Recorded Confirmed Type divalproex 500 mg tablet,extended 1,500 mg PO BID 06/16/19 07/09/23 History release 24 hr (Depakote ER) venlafaxine 150 mg 150 mg PO QAM 06/16/19 07/09/23 History capsule,extended release 24 hr (Effexor XR) lisinopril 10 mg tablet 10 mg PO DAILY 01/19/20 07/09/23 History mirtazapine 15 mg tablet 15 mg PO HS 01/19/20 07/09/23 History clonazepam 1 mg tablet 0.5 mg PO QID 04/17/21 07/09/23 History ziprasidone HCl 60 mg capsule 60 mg PO BID 06/23/22 07/09/23 History albuterol sulfate 90 mcg/actuation 2 puff inhalation QID PRN Wheezing 09/06/22 07/09/23 History aerosol inhaler buspirone 10 mg tablet 10 mg PO TID 09/06/22 07/09/23 History benztropine 1 mg tablet 1 mg PO BID 06/09/23 07/09/23 History hydroxyzine pamoate 25 mg capsule 25 mg PO BID PRN As Directed 06/26/23 07/09/23 History atorvastatin 40 mg tablet 40 mg PO DAILY 06/28/23 07/09/23 History Past Med/Surg History Medical History Drug abuse Malingering Hyperlipidemia HTN (hypertension) Methamphetamine addiction Homelessness Bipolar disorder Depression with suicidal ideation Surgical History No pertinent past surgical history Family History Other No pertinent family history Social History Smoking Status: Current every day smoker Tobacco Type: Cigarettes Second Hand Exposure: Yes; Do You Dip or Chew Tobacco: No; Hx Alcohol Use: No Hx Substance Use: Yes (pt refused to answer) Non-Prescribed Medications: Crack / Cocaine Last Used Substance: Days (ago) Last Used Substance Other:: Last night Substance Use Type Other:: methadone Preferred Language: Cymro Communication Ability: Effective Javascript Software Engineer Required: No Beliefs That Will Affect Care: None marital status: Single Current Living Situation: Boarding Home Feels Safe at Home: No Is there a partner from a previous relationship who is making you feel unsafe now?: No Gender Identity: Male Assistive Devices: None Review of Systems Review of Systems: All systems reviewed & are unremarkable except as noted in Subjective Physical Exam Physical Exam: General: patient resting comfortably, NAD, non-toxic in appearance, AA&O x 4 Skin: warm, dry, intact, no rashes or lesions HEENT: NC/AT, PERRL, EOMI, anicteric sclera, conjunctiva without injection, external ear normal to inspection and nontender, nares patent, moist mucus membranes, dentition intact, no oropharyngeal lesions, neck supple, trachea midline, no LAD, no thyromegaly, no JVD Heart: +S1/S2, regular, no m/r/g Lungs: equal air entry bilaterally, no rales/rhonchi/wheezes Abd: +BS, soft, NT/ND, no masses/organomegaly/ascites Ext: warm, 2+ pulses in UE/LE bilaterally, no clubbing/cyanosis or edema Neuro: nonfocal, patient AA&O x 4, speech intact, no facial droop, moving all extremities on command with equal strength 5/5 Results & Data Results & Data Vital Signs (Past 12 Hours) Vital Signs Temp Pulse Resp BP Pulse Ox O2 Del Method 07/08/23 21:31 Room Air 07/08/23 21:31 36.9 C 78 20 135/89 93 Room Air Supervising Physician Co-Signing Physician Notes Attending addendum: I have physically seen this patient, have supervised the medical residents activities, and agree with the H&P unless as otherwise noted. Assessment and Plan: Suicidal ideation/bipolar disorder/polysubstance abuse history Patient reports he would kill himself if he were discharged to home Urine drug screen positive for barbiturates, with subtype pending One-on-one observation Admit to monitored bed Continue usual medications: Ziprasidone, venlafaxine, mirtazapine, hydroxyzine pamoate, divalproex ER, clonazepam, buspirone, benztropine Consult to psychiatry COVID-19 positive- Patient was asleep positive on 06/26 and now today 2/10 Unlikely to be actively infected Will hold on any COVID precautions to facilitate transfer from emergency department to medical bed Hyperlipidemia/hypertension- Continue atorvastatin and lisinopril
[2023-07-09] MEDS ORDERED: ALBUTEROL HFA 8 GM INHALER INH PRN (04:01)
[2023-07-09] MEDS ORDERED: hydrOXYzine HCl 25 MG TAB PO PRN (04:01)
[2023-07-09 04:55] LABS: Basophils # (auto) 0.07 K/uL (0.00-0.20); Basophils % (auto) 0.7 %; Eosinophils # (auto) 0.25 K/uL (0.00-0.50); Eosinophils % (auto) 2.6 %; Hematocrit (blood only) 46.8 % (42.0-52.0); Hemoglobin 14.6 g/dl (14.0-18.0); Immature Granulocytes # (auto) 0.04 K/uL (0.01-0.20); Immature Granulocytes % (auto) 0.4 %; Lymphocytes # (auto) 3.83 K/uL (1.20-3.40); Lymphocytes % (auto) 40.6 %; Mean Corpuscular Hemoglobin 29.6 pg (25.0-34.0); Mean Corpuscular Hgb Conc 31.2 g/dL (32.0-36.0); Mean Corpuscular Volume 94.7 fL (80.0-100.0); Monocytes # (auto) 1.32 K/uL (0.11-0.59); Neutrophils # (auto) 3.93 K/uL (1.40-6.50); Neutrophils % (auto) 41.7 %; Platelet Count 255 K/uL (130-400); RDW Coefficient of Variation 15.1 % (11.5-14.5); RDW Standard Deviation 52.8 fL (36.4-46.3); Red Blood Count 4.94 M/uL (4.70-6.10); White Blood Count 9.44 K/ul (4.8-10.8)
[2023-07-09 05:11] LABS: Calcium 9.1 mg/dl (8.6-10.3); Est GFR (African American) 136.9 ml/min; Est GFR (Non-African American) 118.1 ml/min; Potassium 4.5 mmol/L (3.5-5.1)
--- NOTE | 2023-07-09 07:21 | Hospitalist Progress Note ---
Date of Service July 09, 2023 Assessment & Plan (1) Suicidal ideation: Plan: -Patient with suicidal ideation with plan. -Urine tox screen positive for barbiturates. Pending exact substance. Blood alcohol negative. -Suicidal checks in place. -Psych consulted, appreciate recommendations. (2) COVID-19: Plan: -Patient was COVID-positive on 06/26 and 07/08. -No symptoms of COVID, vital signs stable. Satting 93% on room air. -Slight leukocytosis of 12, will repeat CBC in the morning. -Will hold off on any treatment. (3) Bipolar disorder: Plan: -Patient with Bipolar disorder, Anxiety and Depression as well as polysubstance abuse. -He is on quite a few psychotropic agents. No recent notes from Psychiatric services -Continue Venlafaxine 150mg po qAM, Buspirone 10mg po TID, Clonazepam 0.5mg po QID and Hydroxyzine PRN for anxiety -Continue Divalproex 1500mg po BID, Ziprasidone 60mg po BID and Cogentin 1mg po BID for BiPolar disorder -Remeron [facility] -Appreciate psychiatric evaluation given the amount of substances patient is on and has not seen psychiatric services in some time. (4) Hyperlipidemia: Plan: -Chronic, continue atorvastatin. (5) HTN (hypertension): Plan: Chronic, continue lisinopril. (6) Polysubstance abuse: Plan (1) Suicidal ideation: -Patient with suicidal ideation with plan. -Urine tox screen positive for barbiturates. Pending exact substance. Blood alcohol negative. -Suicidal checks in place. -Psych consulted, appreciate recommendations. (2) COVID-19: -Patient was COVID-positive on 06/26 and 07/08. -No symptoms of COVID, vital signs stable. Satting 93% on room air. -Slight leukocytosis of 12, will repeat CBC in the morning. -Will hold off on any treatment. (3) Bipolar disorder: -Patient with Bipolar disorder, Anxiety and Depression as well as polysubstance abuse. -He is on quite a few psychotropic agents. No recent notes from Psychiatric services -Continue Venlafaxine 150mg po qAM, Buspirone 10mg po TID, Clonazepam 0.5mg po QID and Hydroxyzine PRN for anxiety -Continue Divalproex 1500mg po BID, Ziprasidone 60mg po BID and Cogentin 1mg po BID for BiPolar disorder -Remeron qhs -Appreciate psychiatric evaluation given the amount of substances patient is on and has not seen psychiatric services in some time. (4) Hx of polysubstance use - Hx of heroin use -Urine tox screen positive for barbiturates. Pending exact substance. Blood alcohol negative. (5) Hyperlipidemia: -Chronic, continue atorvastatin. (6) HTN (hypertension): Chronic, continue lisinopril. Admission and Anticipated Discharge Date Admission Date: July 09, 2023 Subjective Chief Complaint: Suicide ideation Primary Care Provider: NO PCP Patient is a 47-year-old male with past medical history of bipolar disorder, depression, hypertension, and hyperlipidemia who presented to the hospital with suicidal ideation. Patient states that he has been depressed for a while. He plans to commit suicide by overdose. Patient is homeless and was recently kicked out of a homeless [facility]-way. Denies any chest pain or shortness of breath. Does state that he got some Suboxone from a friend yesterday. In the ED patient vital signs were stable. CBC showed a mild leukocytosis of 12 otherwise benign. CMP was benign. UA showed trace ketones. Urine showed positive barbiturates. Patient was also COVID-positive, though was COVID- positive on 06/26. Negative for flu and RSV. Would admit to psych services though must be COVID-negative. Results & Data Results & Data Vital Signs (Past 12 Hours) Vital Signs Temp Pulse Pulse Resp BP BP Pulse Ox 07/09/23 02:52 77 17 162/106 H 94 07/08/23 21:31 07/08/23 21:31 36.9 C 78 20 135/89 93 O2 Del Method 07/09/23 02:52 Room Air 07/08/23 21:31 Room Air 07/08/23 21:31 Room Air Resident Activity Tracking Resident Involvement: Resident Care Provided Care Provided: Adult Hospital Medicine
[2023-07-09] MEDS: BENZTROPINE MESYLATE 1 MG TAB PO SCH (09:40)
[2023-07-09] MEDS: ATORVASTATIN 40 MG TAB PO SCH (09:40)
[2023-07-09] MEDS: lisinopril 10 MG TAB PO SCH (09:40)
[2023-07-09] MEDS: busPIRone 5 MG TAB PO SCH (09:40)
[2023-07-09] MEDS: VENLAFAXINE HCL XR 150 MG CAPXR PO SCH (09:40)
[2023-07-09] MEDS: DIVALPROEX EXTENDED RELEASE 500 MG TAB PO SCH (09:40)
[2023-07-09] MEDS: clonazePAM 0.5 MG TAB PO SCH (10:53)
--- NOTE | 2023-07-09 12:40 | Psychiatric Consultation ---
Date of Consultation July 09, 2023 Impression / Recommendations Impression 47 yo male with a reported hx of bipolar disorder and polysubstance abuse presented to ED with SI with plan. Multiple ED visits reference his lack of follow through, investment in care, and admitted malingering. Now stating he is not suicidal and desires to leave. (1) Bipolar disorder: (2) Polysubstance abuse: (3) COVID-19: Plan do not provide any prescriptions, I do have marked concerns about his ongoing use of benzodiazepines but cannot be stopped abruptly. Will attempt release for [place] [facility] for CM and [facility] for consult to be forwarded. acute inpatient psychiatric hospitalization unlikely to have significant impact on his behavior and most of his risk factors for suicide cannot be mitigated (homeless, no one to secure medications, polysubstance abuse) There is currently no evidence of acute nora, delirium, or psychosis interfering with his medical decision making. His poor self care is related to his social situation and substance abuse, not his mental health condition, and given no act of furtherance and admitted malingering, I do not feel he meets criteria for involuntary [place]atic stay [place] at this time. He is currently unwilling to further monitoring on medical and will reportedly f/u with his prescriber tomorrow. CPT Code Overall, I spent a total of 60 minutes with this case, including review of chart, review of records, direct evaluation of the patient, counseling the patient, coordination with nursing,coordination of care with hospitalist service, and documentation. Psych History Identifying Data 47 yo male well known to ED due to >35 visits last year for various complaints, in cases where he does make suicidal statements he typically retracts them and wants to leave at various stages of bed search process. Recent COVID. Admit medically due to COVID + status. Chief Complaint "I just want out of here. I slept. I'm top of the list for Out of the Cold". History of Present Illness The patient admits that he made suicidal statements so he could have a place to stay for the night as he was "fed up" with not feeling physically that well and waiting for agencies to come through on his housing. He is now requesting to leave the hospital and retracting any statements about wanting to overdose on meds. He is mainly focussed on his Klonopin, am dose was held prior to this consultation and reported some anxiety in his stomach. Per PDMP last filled 06/21/23 and he denies running out. [facility] is currently closed for weekend but reports he has telehealth appointment scheduled for tomorrow. He reports his symptoms are well controlled on his current medications. When questioned re: his positive tox screen (+barbiturates). He did previously test positive and had a confirmatory test for phenobarb level. He was also positive for opiates last month. He did not elaborate but stated that he uses "a bunch of stuff on the street." He was placed at [facility] in February but reportedly left AMA. He denies prior attempts. and essentially felt addition questioning was unnecessary as just focussed on discharge. He is aware of risks associated with combining benzodiazepines with street drugs (respiratory depression) and has been quite negative/angry when [facility] providers have held doses/etc during stays and reports having an agreement with his prescriber. Allergies Allergy/AdvReac Type Severity Reaction Status Date / Time aripiprazole [From [facility]] AdvReac Severe Agitated Verified 06/28/23 22:35 Home Medications Medication Instructions Recorded Confirmed Type divalproex 500 mg tablet,extended 1,500 mg PO BID 06/16/19 07/09/23 History release 24 hr (Depakote ER) venlafaxine 150 mg 150 mg PO QAM 06/16/19 07/09/23 History capsule,extended release 24 hr (Effexor XR) lisinopril 10 mg tablet 10 mg PO DAILY 01/19/20 07/09/23 History mirtazapine 15 mg tablet 15 mg PO HS 01/19/20 07/09/23 History clonazepam 1 mg tablet 0.5 mg PO QID 04/17/21 07/09/23 History ziprasidone HCl 60 mg capsule 60 mg PO BID 06/23/22 07/09/23 History albuterol sulfate 90 mcg/actuation 2 puff inhalation QID PRN Wheezing 09/06/22 07/09/23 History aerosol inhaler buspirone 10 mg tablet 10 mg PO TID 09/06/22 07/09/23 History benztropine 1 mg tablet 1 mg PO BID 06/09/23 07/09/23 History hydroxyzine pamoate 25 mg capsule 25 mg PO BID PRN As Directed 06/26/23 07/09/23 History atorvastatin 40 mg tablet 40 mg PO DAILY 06/28/23 07/09/23 History Patient History Medical History Drug abuse Malingering Hyperlipidemia HTN (hypertension) Methamphetamine addiction Homelessness Bipolar disorder Depression with suicidal ideation Surgical History No pertinent past surgical history Family History Other No pertinent family history Social History Smoking Status: Current every day smoker Tobacco Type: Cigarettes Second Hand Exposure: Yes; Do You Dip or Chew Tobacco: No; Hx Alcohol Use: No Hx Substance Use: Yes (pt refused to answer) Non-Prescribed Medications: Crack / Cocaine Last Used Substance: Days (ago) Last Used Substance Other:: Last night Substance Use Type Other:: methadone Preferred Language: [place] Communication Ability: Effective 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: No Beliefs That Will Affect Care: None marital status: Single Current Living Situation: Boarding Home Feels Safe at Home: No Is there a partner from a previous relationship who is making you feel unsafe now?: No Gender Identity: Male Assistive Devices: None Physical Exam Psychiatric: Orientation: alert and oriented x 3 Apperance: appropriately dressed and appropriately groomed Eye Contact: good eye contact Motor Behavior: no abnormal motor movements Speech: normal rate/rhythm/volume of speech Affect: + constricted affect Mood: + irritable mood Thought Process: goal directed thought process Thought Content: reality based without delusions Suicidal Thoughts: denies suicidal thoughts Homicidal Thoughts: denies homicidal thoughts Hallucinations: no auditory hallucinations and no visual hallucinations Cognition: attention grossly intact and language grossl y intact Estimated Intelligence: consistent with education level Insight: + limited insight Judgment: + limited judgement Vital Signs (Past 24 Hours): Last Vital Signs Temp 36.9 C 07/08/23 21:31 Pulse 77 07/09/23 02:52 Resp 17 07/09/23 02:52 BP 162/106 H 07/09/23 02:52 Pulse Ox 94 07/09/23 02:52 O2 Del Method Room Air 07/09/23 02:52 Review of Systems All systems reviewed & are unremarkable except as noted in HPI & below Results & Data (PSY) Laboratory Results 07/09/23 07/08/23 Range/Units 04:23 21:53 WBC 9.44 12.36 H (4.8-10.8) K/ul RBC 4.94 4.82 (4.70-6.10) M/uL Hgb 14.6 14.6 (14.0-18.0) g/dl Hct 46.8 44.5 (42.0-52.0) % MCV 94.7 92.3 (80.0-100.0) fL MCH 29.6 30.3 (25.0-34.0) pg MCHC 31.2 L 32.8 (32.0-36.0) g/dL RDW Std Deviation 52.8 H 51.0 H (36.4-46.3) fL RDW Coeff of Niko 15.1 H 15.0 H (11.5-14.5) % Plt Count 255 284 (130-400) K/uL MPV 10.0 10.3 (9.4-12.4) fL Immature Gran % (Auto) 0.4 0.3 % Neut % (Auto) 41.7 45.4 % Lymph % (Auto) 40.6 40.0 % [place] % (Auto) 14.0 11.8 % Eos % (Auto) 2.6 1.9 % Baso % (Auto) 0.7 0.6 % Neut # (Auto) 3.93 5.61 (1.40-6.50) K/uL Lymph # (Auto) 3.83 H 4.94 H (1.20-3.40) K/uL [place] # (Auto) 1.32 H 1.46 H (0.11-0.59) K/uL Eos # (Auto) 0.25 0.24 (0.00-0.50) K/uL Baso # (Auto) 0.07 0.07 (0.00-0.20) K/uL Immature Gran # (Auto) 0.04 0.04 (0.01-0.20) K/uL RBC Morphology Unremarkable Sodium 137 135 L (136-145) mmol/L Potassium 4.5 4.6 (3.5-5.1) mmol/L Chloride 101 98 (98-107) mmol/L Carbon Dioxide 31 32 (21-32) mmol/L Anion Gap 5 5 (3-11) BUN 11 12 (6-23) mg/dl Creatinine 0.61 0.63 (0.6-1.4) mg/dl Est Cr Clr Drug Dosing 243.0 Not Reportable Est GFR ( Amer) 136.9 135.1 ml/min Est GFR (Non-Af Amer) 118.1 116.5 ml/min BUN/Creatinine Ratio 18.0 19.0 (10-20) Glucose 121 H 101 H (70-99(Fasting)) mg/dl Calcium 9.1 9.0 (8.6-10.3) mg/dl Total Bilirubin 0.3 (0.2-1.0) mg/dl AST 16 (13-39) U/L ALT 15 (7-52) U/L Alkaline Phosphatase 58 (34-104) U/L Total Protein 7.2 (6.0-8.3) gm/dl Albumin 4.0 (3.4-5.0) gm/dl Globulin 3.2 (2.5-4.0) gm/dl Albumin/Globulin Ratio 1.3 (0.9-2) TSH 1.694 (0.300-4.500) uIu/ml Urine Color Yellow Urine Appearance Clear (Clear) Urine pH 8.5 H (4.5-7.5) Ur Specific [place] 1.025 (1.000-1.030) Urine Protein Negative (Negative) Urine Glucose (UA) Negative (Negative) Urine Ketones Trace H (Negative) Urine Blood Negative (Negative) Urine Nitrite Negative (Negative) Urine Bilirubin Negative (Negative) Urine Urobilinogen Negative (Negative) Ur Leukocyte Esterase Negative (Negative) Urine Butalbital Pending Salicylates < 3.0 L (3.0-30) mg/dl Urine Opiates Screen Neg (Neg) Ur Methadone, Qual Neg (Neg) Acetaminophen < 3 L (10-30) ug/ml Urine Barbiturates Pos H (Neg) Ur Phencyclidine (PCP) Neg (Neg) U Amphetamin/Meth Scrn Neg (Neg) MDMA (Ecstasy) Screen Neg (Neg) Urine Amobarbital Pending Urine Pentobarbital Pending Urine Phenobarbital Pending Urine Secobarbital Pending U Benzodiazepines Scrn Neg (Neg) Ur Cocaine Metabolite Neg (Neg) U Marijuana (THC) Screen Neg (Neg) Drug Screen Comment Pending Ethyl Alcohol mg/dL < 10.0 (<10.0) mg/dl SARS-CoV-2 (PCR) POSITIVE A* (Negative) Influenza Type A (PCR) Negative (Neg) Influenza Type B (PCR) Negative (Neg) RSV (RT-PCR) Negative (Neg) Medications Administered Atorvastatin Calcium (Atorvastatin 40 Mg Tab) 40 mg PO DAILY NOA Stop: 08/08/23 08:59 Last Admin: 07/09/23 09:40 Dose: 40 mg Documented By: ISABELLA Benztropine Mesylate (Benztropine Mesylate 1 Mg Tab) 1 mg PO BID NOA Stop: 08/08/23 08:59 Last Admin: 07/09/23 09:40 Dose: 1 mg Documented By: ISABELLA Buspirone HCl (Buspirone 5 Mg Tab) 10 mg PO TID NOA Stop: 08/08/23 08:59 Last Admin: 07/09/23 09:40 Dose: 10 mg Documented By: ISABELLA Clonazepam (Clonazepam 0.5 Mg Tab) 0.5 mg PO QID NOA Stop: 08/08/23 08:59 Last Admin: 07/09/23 10:53 Dose: 0.5 mg Documented By: ISABELLA Divalproex Sodium (Divalproex Extended Release 500 Mg Tab) 1,500 mg PO BID NOA Stop: 08/08/23 08:59 Last Admin: 07/09/23 09:40 Dose: 1,500 mg Documented By: ISABELLA Lisinopril (Lisinopril 10 Mg Tab) 10 mg PO DAILY NOA Stop: 08/08/23 08:59 Last Admin: 07/09/23 09:40 Dose: 10 mg Documented By: ISABELLA Venlafaxine HCl (Venlafaxine Hcl Xr 150 Mg Capxr) 150 mg PO QAM NOA Stop: 08/08/23 08:59 Last Admin: 07/09/23 09:40 Dose: 150 mg Documented By: ISABELLA Ziprasidone (Ziprasidone Hcl 20 Mg Cap) 60 mg PO BID [facility] Stop: 08/08/23 08:59 Last Admin: 07/09/23 09:40 Dose: 60 mg Documented By: ISABELLA Coding Level of Care Code 77197 [facility] Intl Hosp Care Lvl 2 Diagnoses Bipolar disorder F31.9 Polysubstance abuse F19.10 COVID-19 U07.1
--- NOTE | 2023-07-09 13:13 | Discharge Summary ---
Date of Service July 09, 2023 Admission HPI Per Admitting Provider Patient is a 47-year-old male with past medical history of bipolar disorder, depression, hypertension, and hyperlipidemia who presented to the hospital with suicidal ideation. Patient states that he has been depressed for a while. He plans to commit suicide by overdose. Patient is homeless and was recently kicked out of a homeless half-way. Denies any chest pain or shortness of breath. Does state that he got some Suboxone from a friend yesterday. In the ED patient vital signs were stable. CBC showed a mild leukocytosis of 12 otherwise benign. CMP was benign. UA showed trace ketones. Urine showed posi tive barbiturates. Patient was also COVID-positive, though was COVID-positive on 06/26. Negative for flu and RSV. Would admit to psych services though must be COVID-negative. Admission Exam Per Admitting Provider Physical Exam: General: patient resting comfortably, NAD, non-toxic in appearance, AA&O x 4 Skin: warm, dry, intact, no rashes or lesions HEENT: NC/AT, PERRL, EOMI, anicteric sclera, conjunctiva without injection, external ear normal to inspection and nontender, nares patent, moist mucus membranes, dentition intact, no oropharyngeal lesions, neck supple, trachea midline, no LAD, no thyromegaly, no JVD Heart: +S1/S2, regular, no m/r/g Lungs: equal air entry bilaterally, no rales/rhonchi/wheezes Abd: +BS, soft, NT/ND, no masses/organomegaly/ascites Ext: warm, 2+ pulses in UE/LE bilaterally, no clubbing/cyanosis or edema Neuro: nonfocal, patient AA&O x 4, speech intact, no facial droop, moving all extremities on command with equal strength 5/5 Principal Diagnosis suicidal ideations, polysubstance use Discharge Exam Constitutional WD/WN, vitals as above Respiratory normal respiratory effort, lungs clear to auscultation Auscultation: no diminished lung sounds, no crackles and no wheezes Cardiovascular RRR, no murmur, no edema Extremities: no calf tenderness and no pedal edema Gastrointestinal (Abdomen) Inspection/Auscultation: abdomen normal to inspection Psychiatric A+Ox3, euthymic affect Affect: + anxious affect Mood: + anxious mood Suicidal Thoughts: denies suicidal plan Discharge Data Allergies Allergy/AdvReac Type Severity Reaction Status Date / Time aripiprazole [From [facility]] AdvReac Severe Agitated Verified 06/28/23 22:35 Consultations 07/09/23 01:20 ED Decision to Admit Stat 07/09/23 04:01 Consult Psychiatry Routine Hospital Course (1) Suicidal ideation: (2) COVID-19: (3) Bipolar disorder: (4) Hyperlipidemia: (5) HTN (hypertension): (6) Polysubstance abuse: Plan (1) Suicidal ideation on admission: admitted to malingering. -Patient with suicidal ideation with plan upon admission -Patient denying any suicide plan this morning; endorses stating that to get a place to sleep last night. -Psych consulted: Did not think pt met criteria for involuntary inpatient stay given admitted malingering by patient. (2) COVID-19: asymptomatic -Patient was COVID-positive on 06/26 and 07/08. -No symptoms of COVID, vital signs stable, SpO2 93 upon admission; benign lung exam, no exam concerns for DVT, PE -Resolved leukocytosis, 9.4 <- 12.4 (3) Bipolar disorder: -Patient with Bipolar disorder, Anxiety and Depression as well as polysubstance abuse. -Continued Venlafaxine 150mg po qAM, Buspirone 10mg po TID, and Hydroxyzine PRN for anxiety -Continued Divalproex 1500mg po BID, Ziprasidone 60mg po BID and Cogentin 1mg po BID for BiPolar disorder -Remeron qhs -Appreciate psychiatric evaluation given the amount of substances patient is on and has not seen psychiatric services in some time. (4) Hx of polysubstance use - Hx of heroin use, patient admits polysubstance use, use of "street drugs" -Urine tox screen positive for barbiturates. Pending exact substance. Blood alcohol negative. (5) Hyperlipidemia: -Chronic, continue atorvastatin as outpt (6) HTN (hypertension): Chronic, continue lisinopril as outpt Total Time Total Time Spent Total Time Spent (In Minutes): see attending attestation Discharge Plan Discharge Items Patient Disposition: Home - Self-Care Reason For Visit: SUICIDAL IDEATION Discharge Diagnosis: Depression Activity: Resume your previous activity Non-emergency contact: Primary Care Provider Call non-emergency contact if: you have any medication questions and your symptoms worsen Follow-up/Referrals: PCP,NO [Primary Care Provider] - Diet: Low Sodium (2gm) Addtl Attending Provider Instructions: Follow up with primary care provider and psychiatrist in one week Pending Studies at Discharge: No Stand-Alone Forms: My [facility], Smoking Cessation Medications and DC Order Prescriptions: Continued divalproex [Depakote ER] 500 mg Tablet Extended Release 24 Hr 1,500 mg PO BID Rx Instructions: 3 tablet dose venlafaxine [Effexor XR] 150 mg Capsule,Extended Release 24hr 150 mg PO QAM lisinopril 10 mg tablet 10 mg PO DAILY mirtazapine 15 mg tablet 15 mg PO HS buspirone 10 mg tablet 10 mg PO TID albuterol sulfate 90 mcg/actuation HFA aerosol inhaler 2 puff INHALATION QID PRN (Reason: Wheezing) Rx Instructions: PER PT "DON'T HAVE AT HOME" benztropine 1 mg tablet 1 mg PO BID Rx Instructions: PER PT "NOT REGULARLY" clonazepam 1 mg tablet 0.5 mg PO QID ziprasidone HCl 60 mg capsule 60 mg PO BID Rx Instructions: PER PT "DON'T TAKE" hydroxyzine pamoate 25 mg capsule 25 mg PO BID PRN (Reason: As Directed) atorvastatin 40 mg tablet 40 mg PO DAILY Discharge Orders: Discharge Order (Routine); Ordered 07/09/23 Ordered By: Mckayla Leigh Admission Data Admit Date/Time: 07/09/23 01:44 Attending Provider: Mckayla Leigh Admit Provider: Don Paul Primary Care Provider: PCP,NO Other Providers: Chucho Geronimo; Radha Robles; Ariela Griggs; Luke Langley; Joshua Davison; Vincent Grijalva Jr Other Interventions: Discharge Summary Assessment (RN) Last Done: 07/09/23 13:19 Supervising Physician Co-Signing Physician Notes Attending Physician Supervision Note: I independently interviewed and examined the patient and verified the menendez history and physical, reviewed labs and image studies and agree with findings and care plan noted above. Resident Activity Tracking Resident Involvement: Resident Care Provided Care Provided: Adult [facility]
[2023-07-09] MEDS ORDERED: MIRTAZAPINE TAB 15 MG TAB PO SCH (21:00)
--- NOTE | 2023-07-10 01:39 | Billing Data ---
Date of Service July 10, 2023 Coding Level of Care Code 38328 INT INP/OBS CARE
[2023-07-11 13:52] LABS: Amobarbital, Urine Conf NEGATIVE ng/mL (<100); Butalbital, Urine NEGATIVE ng/mL (<100); Pentobarbital, Urine Conf NEGATIVE ng/mL (<100); Phenobarbital, Urine 1550 ng/mL (<100); Secobarbital, Urine Conf NEGATIVE ng/mL (<100)
== END 2023-07-09 13:19 | disposition home or self-care (01) ==
LOC: ED 21:42 → SUATTDRO 07-09 01:44 → EDINP 07-09 01:44 → INTOOBSV 07-09 01:44 → EDINP 07-09 04:01

== ENCOUNTER 2024-02-11 09:53 | Inpatient (IN) ==
--- NOTE | 2024-02-11 10:20 | Emergency Department Note ---
Impression & Plan Acute respiratory failure with hypoxia, Viral pneumonia ED Provider Note NAME: PEDRO OSORIO AGE: 48 SEX: M : 1975 ARRIVES VIA: Ambulance INFORMANT: Patient, ED PROVIDER(S): Nirmal Christensen MD CHIEF COMPLAINT: COVID-19, shortness of breath MEDICAL DECISION MAKING: Patient presents due to concern for shortness of breath. IV was established and blood work was obtained along with an EKG troponin chest x-ray BioFire. The patient was ordered IV fluids DuoNeb treatments as well as IV steroids. Patient's blood work shows a white count of 14 with a normal hemoglobin and platelet count. VBG with elevated pCO2 of 67 but VBG pH is 735. Kidney function is unremarkable. Troponin negative. Pro-Surinder negative. BioFire positive for enterorhinovirus. Given the patient's hypoxemia I did speak the on-call hospitalist service and the patient was admitted to the medicine service by Dr. Rios. Critical Care: I have personally spent 35 minutes of critical care time in direct management of this patient. This includes bedside care, interpretation of diagnostic studies, and testing, discussion with consultants, patient, and family members, and other require inpatient management activities. This 35 minutes is in excess of all separately billable procedures. Discussion w/ other healthcare providers: Dr. Rios inpatient medicine service Prior /Outside records reviewed: None Differential diagnosis: Reactive airway disease, pneumonia, pneumothorax, COPD, CHF, ACS, pulmonary embolism, musculoskeletal, GERD as well as other pathologies were considered. Diagnostics, as interpreted by me: ECG: Normal sinus rhythm, rate of 87, normal intervals no ST elevations T wave version in V2. Cardiac monitoring: An order was placed for continuous cardiac monitoring. The monitor shows a rate of 88 with sinus rhythm. Patient was placed on pulse oximetry Medical decision rules: None Imaging studies: I informally interpreted the patient's chest x-ray does not show obvious pneumonia or pneumothorax with formal report to follow. HPI: Patient presents due to concern for worsening shortness of breath. EMS reported the patient was hypoxemic 86% on room air. The patient does not wear oxygen at home. Patient states that he did go to [facility] where he was initially treated and told that he might have bronchitis or pneumonia and was COVID-positive. The patient reportedly started on antibiotics which she is taken for about 2 days. Patient symptoms have gotten progressively worse. Patient denies any chest pains no abdominal pain nausea or vomiting. Patient does feel short of breath at rest as well as with activity. Patient denies any leg swelling. PAST MEDICAL HISTORY: See Below PAST SURGICAL HISTORY: See Below SOCIAL HISTORY: See Below HOME MEDICATIONS: See Below ALLERGIES: See Below VITALS: See Below PHYSICAL EXAMINATION: GENERAL: NAD, non-toxic. Nasal cannula in place. EYE EXAM: Normal conjunctiva. PERRL, no anisocoria and EOM's grossly intact w/o pain. OROPHARYNX: Moist mucus membranes, grossly normal dentition. NECK: Trachea midline, no stridor. Supple, no nuchal rigidity, no adenopathy, non-tender. No signs of meningismus. FROM of the neck with good chin to chest and neck extension. LUNGS: Wheezing noted with crackles throughout. Normal chest wall mechanics. HEART: NSR, no MRG. ABDOMEN: Abdomen soft, non-tender, no masses, no rebound or guarding. BACK: No CVA TTP. SKIN: No rashes and no bruising. UPPER EXTREMITIES: Upper extremities are grossly normal. LOWER EXTREMITIES: Grossly normal, no edema. NEURO EXAM: A&O x3, cranial nerves II-XII grossly intact, normal speech, moves all 4 extremities. Past Med/Surg History Problem List (Updated 02/12/24 @ 18:17 by Nirmal Christensen MD) Viral pneumonia (Acute) RUDY (obstructive sleep apnea) COPD (chronic obstructive pulmonary disease) Depression (Acute) Suicidal ideation (Acute) Hypoxic (Acute) Polysubstance abuse (Acute) COVID-19 (Acute) Acute hyponatremia (Acute) Illness (Acute) Acute hyponatremia (Acute) Depression (Acute) Acute streptococcal pharyngitis Hyponatremia (Acute) DVT prophylaxis Abnormal ECG Obesity Acute respiratory failure with hypoxia (Acute) Altered mental status Febrile illness Hyperlipidemia Bipolar disorder (Acute) Homelessness (Acute) HTN (hypertension) Breathlessness (Acute) Fever (Acute) Somnolence (Acute) Medical History Drug abuse Malingering Methamphetamine addiction Depression with suicidal ideation Surgical History No pertinent past surgical history Family History Other No pertinent family history Social History Smoking Status: Current every day smoker Tobacco Type: Cigarettes Tobacco Cessation Education Requested by Patient: No Preferred Language: Lebanese Communication Ability: Effective Building Maintenance Technician Required: No Beliefs That Will Affect Care: None marital status: Single Current Living Situation: Homeless Feels Safe at Home: Declines to Answer Safety Concerns: Feels Safe At This Time Gender Identity: Male Assistive Devices: None Allergies Allergies Allergy/AdvReac Type Severity Reaction Status Date / Time aripiprazole [From Abilify] AdvReac Severe Agitated Verified 06/28/23 22:35 Home Meds Home Medications Medication Instructions Recorded Confirmed divalproex 500 mg tablet,extended 1,500 mg PO BID 06/16/19 02/11/24 release 24 hr (Depakote ER) venlafaxine 150 mg 150 mg PO QAM 06/16/19 02/11/24 capsule,extended release 24 hr (Effexor XR) lisinopril 10 mg tablet 10 mg PO DAILY 01/19/20 02/11/24 mirtazapine 15 mg tablet 15 mg PO HS 01/19/20 02/11/24 clonazepam 1 mg tablet 0.5 mg PO QID PRN Anxiety 04/17/21 02/11/24 ziprasidone HCl 60 mg capsule 60 mg PO BID 06/23/22 02/11/24 (Geodon) albuterol sulfate 90 mcg/actuation 2 puff inhalation QID PRN Wheezing 09/06/22 02/11/24 aerosol inhaler buspirone 10 mg tablet 10 mg PO TID 09/06/22 02/11/24 atorvastatin 40 mg tablet 40 mg PO DAILY 06/28/23 02/11/24 doxycycline hyclate 100 mg capsule 100 mg PO BID 02/11/24 02/11/24 Results & Data (ED) Vital Signs Vital Signs - 24 hr 02/11/24 10:01 02/11/24 10:04 02/11/24 10:04 Temperature 37.0 C Temperature Source Oral Pulse Rate 76 Respiratory Rate 17 Respiratory Effort / Characteristics Spontaneous Labored Respiratory Depth Normal Respiratory Pattern Regular Blood Pressure 182/83 H Blood Pressure Mean 116 Pulse Oximetry 91 86 L Oxygen Delivery Method Nasal Cannula Nasal Cannula Nasal Cannula Oxygen Flow Rate 3 2 0 Sepsis Recent Fever Within 48 Hours No Sepsis New/Unexplained Change in Mental Status N/A Sepsis Action Taken by Nursing No Action Required Oxygen Flow Rate - Titration 2 Pulse Oximetry Post Tiitration 94 Home Medications Current Medication List: was personally reviewed by me Laboratory Data Attestation: I reviewed the patient's lab results. 02/11/24 10:05 02/11/24 10:05 Lab Results 02/11/24 02/11/24 02/11/24 Range/Units 10:05 10: 11:00 WBC 14.68 H (4.8-10.8) K/ul RBC 4.67 L (4.70-6.10) M/uL Hgb 14.2 (14.0-18.0) g/dl Hct 44.3 (42.0-52.0) % MCV 94.9 (80.0-100.0) fL MCH 30.4 (25.0-34.0) pg MCHC 32.1 (32.0-36.0) g/dL RDW Std Deviation 52.5 H (36.4-46.3) fL RDW Coeff of Niko 15.0 H (11.5-14.5) % Plt Count 262 (130-400) K/uL MPV 10.1 (9.4-12.4) fL Immature Gran % (Auto) 1.2 % Neut % (Auto) 63.0 % Lymph % (Auto) 23.8 % [place] % (Auto) 11.0 % Eos % (Auto) 0.5 % Baso % (Auto) 0.5 % Neut # (Auto) 9.25 H (1.40-6.50) K/uL Lymph # (Auto) 3.49 H (1.20-3.40) K/uL [place] # (Auto) 1.62 H (0.11-0.59) K/uL Eos # (Auto) 0.07 (0.00-0.50) K/uL Baso # (Auto) 0.07 (0.00-0.20) K/uL Immature Gran # (Auto) 0.18 (0.01-0.20) K/uL VBG pH 7.35 L (7.36-7.41) VBG pCO2 67 H (38-50) mmHg VBG pO2 42 mmHg VBG HCO3 37 mmol/L VBG O2 Saturation 74.8 % VBG Base Excess 8.8 mEq/L Sodium 139 (136-145) mmol/L Potassium 4.2 (3.5-5.1) mmol/L Chloride 97 L (98-107) mmol/L Carbon Dioxide 36 H (21-32) mmol/L Anion Gap 6 (3-11) BUN 17 (6-23) mg/dl Creatinine 0.75 (0.6-1.4) mg/dl Est Cr Clr Drug Dosing 156.0 ml/min Est GFR ( Amer) 124.8 ml/min Est GFR (Non-Af Amer) 107.7 ml/min BUN/Creatinine Ratio 22.7 H (10-20) Glucose 150 H (70-99(Fasting)) mg/dl Calcium 8.9 (8.6-10.3) mg/dl Total Bilirubin 0.3 (0.2-1.0) mg/dl AST 14 (13-39) U/L ALT 16 (7-52) U/L Alkaline Phosphatase 57 (34-104) U/L Troponin I High Sens 10.9 (0-20) pg/ml C-Reactive Protein 1.68 H (0-0.5) mg/dl Total Protein 6.7 (6.0-8.3) gm/dl Albumin 4.0 (3.4-5.0) gm/dl Globulin 2.7 (2.5-4.0) gm/dl Albumin/Globulin Ratio 1.5 (0.9-2) Procalcitonin < 0.02 (0-0.5) ng/ml Adenovirus (PCR) Not Detected (NotDetected) B. pertussis DNA (PCR) Not Detected (NotDetected) B.parapertussis DNA PCR Not Detected (NotDetected) C. pneumoniae DNA (PCR) Not Detected (NotDetected) Coronavirus OC43 (PCR) Not Detected (NotDetected) Coronavirus HKU1 (PCR) Not Detected (NotDetected) Coronavirus 229E (PCR) Not Detected (NotDetected) SARS-CoV-2 (PCR) Not Detected (NotDetected) Coronavirus NL63 (PCR) Not Detected (NotDetected) Human Metapneumovir PCR Not Detected (NotDetected) Influenza Type A (PCR) Not Detected (NotDetected) Influenza Type B (PCR) Not Detected (NotDetected) M. pneumoniae (PCR) Not Detected (NotDetected) Parainfluenza 1 (PCR) Not Detected (NotDetected) Parainfluenza 2 (PCR) Not Detected (NotDetected) Parainfluenza 3 (PCR) Not Detected (NotDetected) Parainfluenza 4 (PCR) Not Detected (NotDetected) RSV (PCR) Not Detected (NotDetected) Entero/Rhino (PCR) DETECTED A (NotDetected) Administered Medications Atorvastatin Calcium (Atorvastatin 40 Mg Tab) 40 mg PO DAILY [facility] Stop: 03/13/24 08:59 Last Admin: 02/12/24 08:19 Dose: 40 mg Documented By: DAJUAN Benztropine Mesylate (Benztropine Mesylate 1 Mg Tab) 1 mg PO BID [facility] Stop: 03/12/24 20:59 Last Admin: 02/12/24 09:41 Dose: 1 mg Documented By: Admin: 02/11/24 21:17 Dose: Not Given Documented By: ELGIN Buspirone HCl (Buspirone 5 Mg Tab) 10 mg PO TID [facility] Stop: 03/12/24 15:14 Last Admin: 02/12/24 14:22 Dose: 10 mg Documented By: Admin: 02/12/24 08:19 Dose: 10 mg Documented By: Admin: 02/11/24 20:31 Dose: Not Given Documented By: Admin: 02/11/24 17:49 Dose: 10 mg Documented By: ELGIN Clonazepam (Clonazepam 1 Mg Tab) 1 mg PO QAM PRN PRN Reason: Anxiety Stop: 03/12/24 15:03 Last Admin: 02/12/24 08:23 Dose: 1 mg Documented By: DAJUAN Divalproex Sodium (Divalproex Extended Release 500 Mg Tab) 1,500 mg PO BID [facility] Stop: 03/12/24 20:59 Last Admin: 02/12/24 08:20 Dose: 1,500 mg Documented By: Admin: 02/11/24 20:25 Dose: 1,500 mg Documented By: ELGIN Enoxaparin Sodium (Enoxaparin Inj 40 Mg/0.4 Ml Syr) 40 mg SQ Q24H [facility] Stop: 03/13/24 08:59 Last Admin: 02/12/24 08:26 Dose: Not Given Documented By: DAJUAN Doxycycline Hyclate 100 mg/ (Dextrose) 100 mls @ 50 mls/hr IV Q12H [facility] Stop: 02/18/24 15:14 Last Infusion: 02/12/24 18:13 Dose: Infused Documented By: Admin: 02/12/24 14:19 Dose: 50 mls/hr Documented By: Infusion: 02/12/24 07:45 Dose: Infused Documented By: Admin: 02/12/24 04:15 Dose: 50 mls/hr Documented By: Infusion: 02/11/24 19:33 Dose: Infused Documented By: Admin: 02/11/24 16:28 Dose: 50 mls/hr Documented By: SABINO Lisinopril (Lisinopril 10 Mg Tab) 10 mg PO DAILY [facility] Stop: 03/13/24 08:59 Last Admin: 02/12/24 08:18 Dose: 10 mg Documented By: DAJUAN Mirtazapine (Mirtazapine Tab 15 Mg Tab) 15 mg PO HS [facility] Stop: 03/12/24 20:59 Last Admin: 02/11/24 20:25 Dose: 15 mg Documented By: ELGIN Miscellaneous (Remove Nicoderm Patch) 1 each N/A DAILY@0859 [facility] Stop: 03/13/24 08:58 Last Admin: 02/12/24 08:17 Dose: 1 each Documented By: DAJUAN Nicotine (Nicotine 21 Mg/24 Hr Tdsy) 1 patch TD [facility] Stop: 03/12/24 12:44 Last Admin: 02/12/24 09:41 Dose: 1 patch Documented By: Admin: 02/11/24 19:42 Dose: 1 patch Documented By: ELGIN Prednisone (Pred[facility]one 20 Mg Tab) [facility] [place] Stop: 02/17/24 08:59 Last Admin: 02/12/24 08:19 Dose: 40 mg Documented By: DAJUAN Venlafaxine HCl (Venlafaxine Hcl Xr 150 Mg Capxr) 150 mg PO QAM NO[facility] Stop: 03/13/24 08:59 Last Admin: 02/12/24 08:18 Dose: 150 mg Documented By: DAJUAN Ziprasidone (Ziprasidone Hcl 20 Mg Cap) 60 mg PO BID NO[facility] Stop: 03/12/24 21:29 Last Admin: 02/12/24 08:17 Dose: 60 mg Documented By: Admin: 02/11/24 21:36 Dose: 60 mg Documented By: ELGIN Discontinued Medications Albuterol (Albut/Ipratrop 3mg/0.5mg Neb 3 Ml Vial) 12 ml INH ONE STA Stop: 02/11/24 10:13 Last Admin: 02/11/24 10:26 Dose: 12 ml Documented By: WAQAR Clonazepam (Clonazepam 0.5 Mg Tab) 0.5 mg PO NOW STA Stop: 02/11/24 15:09 Last Admin: 02/11/24 19:02 Dose: 0.5 mg Documented By: ELGIN Furosemide (Furosemide 20 Mg Tab) 20 mg PO ONE ONE Stop: 02/11/24 12:34 Last Admin: 02/11/24 13:01 Dose: 20 mg Documented By: MARIANNE Lorazepam (Lorazepam 2 Mg/1 Ml Vial) 1 mg IV NOW STA Stop: 02/11/24 21:25 Last Admin: 02/11/24 21:36 Dose: 1 mg Documented By: ELGIN Menthol (Cough Drop (Sugar Free) Sunshine 24 Sunshine/1 Box) Confirm Administered Dose 24 sunshine BUCCAL .STK-MED ONE Stop: 02/12/24 02:09 Last Admin: 02/12/24 02:10 Dose: 24 sunshine Documented By: SANTOS Methylprednisolone (Methylprednisolone 125 Mg/2 Ml Vial) 125 mg IV NOW STA Stop: 02/11/24 10:13 Last Admin: 02/11/24 10:49 Dose: 125 mg Documented By: MARIANNE Sodium Chloride (Sodium Chlor 7% 4 Ml Neb) 4 ml NEB BIDR NOA Stop: 03/13/24 09:14 Last Admin: 02/12/24 09:59 Dose: 4 ml Documented By: KINGA Imaging Data Radiologist's Impression: Chest X-Ray 02/11/24 10:05 XR chest 1V portable CLINICAL HISTORY: sob TECHNIQUE: Single frontal radiograph of the chest was obtained. Comparison: Comparison is made to chest radiograph 06/28/2023 FINDINGS: Exam is limited by underpenetration. Cardiomegaly is noted. Possible prominence of the vasculature is seen. No evidence of pleural effusion or pneumothorax. IMPRESSION: Previously noted airspace opacities have resolved. There is cardiomegaly and borderline pulmonary vascular congestion. ACT 112: Negative or not required by law. Electronically signed by: Jamal Caraballo M.D. 02/11/2024 10:35 AM Discharge Plan Visit Data Chief Complaint: Shortness of Breath/Dyspnea Stated Complaint: SOB ED Provider: Nirmal Christensen Discharge Problem: Acute respiratory failure with hypoxia, Viral pneumonia Patient Disposition: Admitted As Inpatient Discharge Instructions Interventions: ED Discharge Assessment Last Done: 02/11/24 16:43
[2024-02-11] MEDS: ALBUT/IPRATROP 3MG/0.5MG NEB 3 ML VIAL INH STA (10:26)
[2024-02-11 10:36] LABS: Base Excess VBG 8.8 mEq/L; HCO3 VBG 37 mmol/L; Oxygen Saturation VBG 74.8 %; PCO2 VBG 67 mmHg (38-50); PO2 VBG 42 mmHg; pH VBG 7.35 (7.36-7.41)
--- NOTE | 2024-02-11 10:37 | XRay Report ---
XR chest 1V portable CLINICAL HISTORY: sob TECHNIQUE: Single frontal radiograph of the chest was obtained. Comparison: Comparison is made to chest radiograph 06/28/2023 FINDINGS: Exam is limited by underpenetration. Cardiomegaly is noted. Possible prominence of the vasculature is seen. No evidence of pleural effusion or pneumothorax. IMPRESSION: Previously noted airspace opacities have resolved. There is cardiomegaly and borderline pulmonary vas cular congestion. ACT 112: Negative or not required by law. Electronically signed by: Jamal Caraballo M.D. 02/11/2024 10:35 AM
[2024-02-11 10:47] LABS: Basophils # (auto) 0.07 K/uL (0.00-0.20); Basophils % (auto) 0.5 %; Eosinophils # (auto) 0.07 K/uL (0.00-0.50); Eosinophils % (auto) 0.5 %; Hematocrit (blood only) 44.3 % (42.0-52.0); Hemoglobin 14.2 g/dl (14.0-18.0); Immature Granulocytes # (auto) 0.18 K/uL (0.01-0.20); Immature Granulocytes % (auto) 1.2 %; Lymphocytes # (auto) 3.49 K/uL (1.20-3.40); Lymphocytes % (auto) 23.8 %; Mean Corpuscular Hemoglobin 30.4 pg (25.0-34.0); Mean Corpuscular Hgb Conc 32.1 g/dL (32.0-36.0); Mean Corpuscular Volume 94.9 fL (80.0-100.0); Mean Platelet Volume 10.1 fL (9.4-12.4); Monocytes # (auto) 1.62 K/uL (0.11-0.59); Neutrophils # (auto) 9.25 K/uL (1.40-6.50); Platelet Count 262 K/uL (130-400); RDW Standard Deviation 52.5 fL (36.4-46.3); Red Blood Count 4.67 M/uL (4.70-6.10); White Blood Count 14.68 K/ul (4.8-10.8)
[2024-02-11] MEDS: methylPREDNISolone 125 MG/2 ML VIAL IV STA (10:49)
[2024-02-11 10:59] LABS: Albumin Globulin Ratio 1.5 (0.9-2); BUN Creatinine Ratio 22.7 (10-20); Bilirubin,Total 0.3 mg/dl (0.2-1.0); Calcium 8.9 mg/dl (8.6-10.3); Est GFR (African American) 124.8 ml/min; Est GFR (Non-African American) 107.7 ml/min; Globulin 2.7 gm/dl (2.5-4.0); Potassium 4.2 mmol/L (3.5-5.1); Total Protein 6.7 gm/dl (6.0-8.3)
[2024-02-11 11:05] LABS: Troponin I High Sensitivity 10.9 pg/ml (0-20)
--- NOTE | 2024-02-11 12:08 | History & Physical Report ---
Date of Service February 11, 2024 Assessment & Plan (1) Acute respiratory failure with hypoxia: Plan: Acute hypoxic respiratory failure due to viral pneumonia - Hypoxic to 80s requiring supplemental O2 in ER Reportedly previously COVID-positive. Bio fire is negative on admission, he is newly rhino/enterovirus positive chest x-ray: Cardiomegaly and borderline pulmonary vascular congestion, previously noted airspace opacities improved. No new evidence of loba r/superimposed pneumonia VBG 7.3 /42/37 acute respiratory acidosis. BiPAP nightly as needed Received methylprednisolone and albuterol while in the ER Was prescribed doxycycline twice daily on 02/08. No prior history of COPD. No evidence of superimposed pneumonia on x-ray. Patient does feel that his symptoms have rapidly worsened in the last 24 hours. He is now entero- /rhinovirus positive. Will continue doxycycline for COPD coverage; azithromycin deferred due to borderline QT and multiple psychiatric medications EKG sinus, right bundle branch block redemonstrated (2) Viral pneumonia: Plan: Reportedly COVID-positive in the last week. Cards Off is negative for this, however he is rhino/enterovirus positive Received methylprednisolone in the ER. Will continue prednisone daily CRP added and trended Titrate oxygen to 89% Mild pulmonary vascular congestion on x-ray. No hypotension or tachycardia. 1 dose of Lasix given to promote dry pulmonary status (3) Bipolar disorder: Plan: History of bipolar disorder Continue venlafaxine, BuSpar, hydroxyzine, Depakote, ziprasidone, Cogentin, Remeron Patient reports he is due for his clonazepam. He reports he is out of this at home. Per med rec this was last filled 01/29 for 14 days, and 01/15 for 14 days for twice daily use. Patient reports she was previously on 3 mg a day with Dr. Cannon however he retired and recently has been following out of town and has been prescribed 2 mg is 4 Tablets per day reports he ran out in the last day, per med fill would be due to running out from prior prescription in 2 days. We will continue this on admission dose reduced to 0.5 mg a.m., 1 mg p.m. due to chronic daily use and risk of withdrawal. He denies alcohol withdrawal, reports [facility] put him on Librium but does not know why. He denies any alcohol use in the last month. ?benzo taper (4) COPD (chronic obstructive pulmonary disease): Plan: Endorses COPD on albuterol only due to history of tobacco use No PFTs available for review Nicotine patch ordered Azithromycin/cefepime as noted Flutter valve, incentive spirometry Titrate oxygen to 88-89%. Do not hyper oxygenate (5) RUDY (obstructive sleep apnea): Plan: CPAP chest Plan Chronic stable issues: Hyperlipidemia: Continue atorvastatin Hypertension: Continue lisinopril DVT prophylaxis: COVID DVT prophylaxis ordered Disposition: Medical surgical CODE STATUS: Full code Diet: Heart healthy History of Present Illness Primary Care Provider: NO PCP Jas is a 48-year-old male with a past medical history of bipolar disorder, suicidal ideation, hypertension, hyperlipidemia presents to the ER with cough and hypoxia. Was recently seen at [facility] 2 days ago for possible bronchitis, was started on antibiotics however has continued to get worse and called EMS. Was 86% on room air and route. Due to progressively worsening symptoms, COVID, and acute hypoxemia he is recommended for admission. Jas is seen at the bedside. He reports that he has had about 7 to 8 days of symptoms. Was diagnosed with COVID. Has been taking doxycycline for 2 days. He reports he saw [facility] and was initially getting better but in the last 24 hours he feels his breathing has rapidly worsened. He is much more short of breath at night and during the day, and short of breath on attempted exertion. Has had fevers up to 101 intermittently over the last week. He feels that his symptoms were fairly steady and maybe a little bit improved after going to [facility], but are much worse in the last 24 hours. Denies nausea or vomiting. Denies diarrhea or constipation. Cough is productive for thick yellow sputum which has not changed in the last 7 days. He does have COPD due to tobacco use. He denies any recreational drug use in the last month. Medical History: Reviewed Medications: Reviewed Surgical History: Reviewed Family history: Reviewed Allergies: Reviewed Social History: Endorses tobacco use. Endorses intermittent alcohol use no use in the last week due to feeling ill. Past recreational drug use, denies any recreational drug use recently and specifically no heroin, meth, or IV drug use in the last month. Code Status: Full code Allergies Allergy/AdvReac Type Severity Reaction Status Date / Time aripiprazole [From Abilify] AdvReac Severe Agitated Verified 06/28/23 22:35 Home Medications Medication Instructions Recorded Confirmed Type divalproex 500 mg tablet,extended 1,500 mg PO BID 06/16/19 02/11/24 History release 24 hr (Depakote ER) venlafaxine 150 mg 150 mg PO QAM 06/16/19 02/11/24 History capsule,extended release 24 hr (Effexor XR) lisinopril 10 mg tablet 10 mg PO DAILY 01/19/20 02/11/24 History mirtazapine 15 mg tablet 15 mg PO HS 01/19/20 02/11/24 History clonazepam 1 mg tablet 0.5 mg PO QID PRN Anxiety 04/17/21 02/11/24 History ziprasidone HCl 60 mg capsule 60 mg PO BID 06/23/22 02/11/24 History (Lianna) albuterol sulfate 90 mcg/actuation 2 puff inhalation QID PRN Wheezing 09/06/22 02/11/24 History aerosol inhaler buspirone 10 mg tablet 10 mg PO TID 09/06/22 02/11/24 History atorvastatin 40 mg tablet 40 mg PO DAILY 06/28/23 02/11/24 History doxycycline hyclate 100 mg capsule 100 mg PO BID 02/11/24 02/11/24 History Past Med/Surg History Problem List (Updated 02/11/24 @ 12:32 by Papo Rios MD) Viral pneumonia RUDY (obstructive sleep apnea) COPD (chronic obstructive pulmonary disease) Depression (Acute) Suicidal ideation (Acute) Hypoxic (Acute) Polysubstance abuse (Acute) COVID-19 (Acute) Acute hyponatremia (Acute) Illness (Acute) Acute hyponatremia (Acute) Depression (Acute) Acute streptococcal pharyngitis Hyponatremia (Acute) DVT prophylaxis Abnormal ECG Obesity Acute respiratory failure with hypoxia Altered mental status Febrile illness Hyperlipidemia Bipolar disorder (Acute) Homelessness (Acute) HTN (hypertension) Breathlessness (Acute) Fever (Acute) Somnolence (Acute) Medical History Drug abuse Malingering Methamphetamine addiction Depression with suicidal ideation Surgical History No pertinent past surgical history Family History Other No pertinent family history Social History Smoking Status: Current every day smoker Tobacco Type: Cigarettes Second Hand Exposure: Yes; Do You Dip or Chew Tobacco: No; Hx Alcohol Use: No Hx Substance Use: Yes (pt refused to answer) Non-Prescribed Medications: Crack / Cocaine Last Used Substance: Days (ago) Last Used Substance Other:: Last night Substance Use Type Other:: methadone Preferred Language: Luxembourgish Communication Ability: Effective Production Expert Required: No Beliefs That Will Affect Care: None marital status: Single Current Living Situation: Boarding Home Feels Safe at Home: Yes Gender Identity: Male Assistive Devices: None Physical Exam Physical Exam: General: A&Ox3. NAD. Cooperative. HEENT: Atraumatic, normocephalic. Vision and hearing grossly intact Pulm: Diminished, scattered wheezing in all lung roldan symmetrical chest rise. No increased work of breathing. No respiratory distress. Cardiac: RRR, -mrg. Radial pulses intact and symmetrical. Abdominal: Nontender, nondistended, soft. BS present. Extremities: Warm and dry Results & Data Results & Data Vital Signs (Past 12 Hours) Vital Signs Temp Pulse Pulse Resp BP Pulse Ox O2 Del Method 02/11/24 11:15 82 21 95 02/11/24 11:14 168/87 H 02/11/24 11:01 98 Nasal Cannula 02/11/24 10:27 80 23 100 02/11/24 10:26 79 21 92 Nasal Cannula 02/11/24 10:25 74 02/11/24 10:12 84 94 Nasal Cannula 02/11/24 10:09 72 23 90 02/11/24 10:04 86 L Nasal Cannula 02/11/24 10:04 Nasal Cannula 02/11/24 10:01 37.0 C 76 17 182/83 H 91 Nasal Cannula O2 Flow Rate 02/11/24 11:15 02/11/24 11:14 02/11/24 11:01 2 02/11/24 10:27 02/11/24 10:26 3 02/11/24 10:25 02/11/24 10:12 2 02/11/24 10:09 02/11/24 10:04 0 02/11/24 10:04 2 02/11/24 10:01 3 PG Care Time/CCT Total # of Minutes Spent Total Time Spent with Patient: Total time spent is greater than 50% in coordination of care (as documented) at patient's floor/unit and/or counseling patient: Coding Level of Care Code 78915 INT INP/OBS CARE 3/75MIN Diagnoses Acute respiratory failure with hypoxia J96.01 Viral pneumonia J12.9 Bipolar disorder F31.9 COPD (chronic obstructive pulmonary disease) J44.9 RUDY (obstructive sleep apnea) G47.33
[2024-02-11 12:11] LABS: Adenovirus PCR Not Detected (NotDetected); Bordetella parapertussis PCR Not Detected (NotDetected); Bordetella pertussis PCR Not Detected (NotDetected); Chlamydia pneumoniae PCR Not Detected (NotDetected); Coronavirus 229E PCR Not Detected (NotDetected); Coronavirus CoV-2 (COVID19)PCR Not Detected (NotDetected); Coronavirus HKU1 PCR Not Detected (NotDetected); Coronavirus NL63 PCR Not Detected (NotDetected); Coronavirus OC43PCR Not Detected (NotDetected); Human Metapneumovirus PCR Not Detected (NotDetected); Influenza A PCR Not Detected (NotDetected); Influenza B PCR Not Detected (NotDetected); Mycoplasma pneumoniae PCR Not Detected (NotDetected); Parainfluenza Virus 1 PCR Not Detected (NotDetected); Parainfluenza Virus 2 PCR Not Detected (NotDetected); Parainfluenza Virus 3 PCR Not Detected (NotDetected); Parainfluenza Virus 4 PCR Not Detected (NotDetected); Respiratory Syncytial VirusPCR Not Detected (NotDetected); Rhinovirus/Enterovirus PCR DETECTED (NotDetected)
[2024-02-11 12:30] LABS: C Reactive Protein 1.68 mg/dl (0-0.5)
[2024-02-11] MEDS: FUROSEMIDE 20 MG TAB PO ONE (13:01)
[2024-02-11] MEDS ORDERED: ALBUT/IPRATROP 3MG/0.5MG NEB 3 ML VIAL NEB PRN (15:04)
[2024-02-11] MEDS ORDERED: ACETAMINOPHEN 325 MG TAB PO PRN (15:04)
[2024-02-11] MEDS ORDERED: POLYETHYLENE (MIRALAX) 17 GM PACK PO PRN (15:04)
[2024-02-11] MEDS ORDERED: ALBUTEROL HFA 8 GM INHALER INH PRN (15:04)
[2024-02-11 16:12] LABS: Base Excess VBG 8.8 mEq/L; HCO3 VBG 37 mmol/L; Oxygen Saturation VBG 91.3 %; PCO2 VBG 67 mmHg (38-50); PO2 VBG 62 mmHg; pH VBG 7.35 (7.36-7.41)
[2024-02-11] MEDS: DOXYCYCLINE HYCLATE 100 MG in DEXTROSE 5% MINI-B 100 ML IV SCH (16:28)
[2024-02-11] MEDS: busPIRone 5 MG TAB PO SCH (17:49)
[2024-02-11] MEDS: clonazePAM 0.5 MG TAB PO STA (19:02)
[2024-02-11] MEDS: NICOTINE 21 MG/24 HR TDSY TD SCH (19:42)
[2024-02-11] MEDS: MIRTAZAPINE TAB 15 MG TAB PO SCH (20:25)
[2024-02-11] MEDS: DIVALPROEX EXTENDED RELEASE 500 MG TAB PO SCH (20:25)
[2024-02-11] MEDS: BENZTROPINE MESYLATE 1 MG TAB PO SCH (20:27)
[2024-02-11] MEDS: LORazepam 2 MG/1 ML VIAL IV STA (21:36)
[2024-02-12] MEDS: COUGH DROP (SUGAR FREE) LOZ 24 LOZ/1 BOX BUCCAL ONE (02:10)
[2024-02-12] MEDS: VENLAFAXINE HCL XR 150 MG CAPXR PO SCH (08:18)
[2024-02-12] MEDS: lisinopril 10 MG TAB PO SCH (08:18)
[2024-02-12] MEDS: ATORVASTATIN 40 MG TAB PO SCH (08:19)
[2024-02-12] MEDS: predniSONE 20 MG TAB PO SCH (08:19)
[2024-02-12] MEDS: clonazePAM 1 MG TAB PO PRN (08:23)
[2024-02-12] MEDS: ENOXAPARIN INJ 40 MG/0.4 ML SYR SQ SCH (08:26)
[2024-02-12] MEDS: SODIUM CHLOR 7% 4 ML NEB NEB SCH (09:59)
--- NOTE | 2024-02-12 11:41 | Hospitalist Progress Note ---
Date of Service February 12, 2024 Assessment & Plan (1) Acute respiratory failure with hypoxia: Plan: Patient presented to the ED on 02/10 with complaints of shortness of breath and fevers. Patient was originally seen at [facility] on 02/08 and was given Doxycycline for COPD coverage. Patient also reportedly tested positive for COVID. Respiratory biofire negative for COVID but positive for rhinovirus and enterovirus CXR: Cardiomegaly and borderline pulmonary vascular congestion. previously noted airspace opacities improved. No new evidence of lobar/superimposed pneumonia VBGs: 7.35/67/42/37 - acute respiratory acidosis. BiPAP nightly prn CRP: 1.68 Continue Prednisone 40mg daily Albuterol prn Continue Doxycycline for COPD coverage - azithromycin deferred due to borderline QT and multiple psychiatric medications EKG sinus, RBBB re-demonstrated Oxygen 94% on 5L 02 - continue to wean off if possible. Recommend maintaining O2 sat 88-89% s/p 1 dose Lasix given to promote dry pulmonary status AM CBC, BMP, CRP (2) Viral pneumonia: Plan: see plan above (3) Bipolar disorder: Plan: History of bipolar disorder Continue venlafaxine, BuSpar, hydroxyzine, Depakote, ziprasidone, Cogentin, Remeron Patient reports he is due for his clonazepam. He reports he is out of this at home. Per med rec this was last filled 01/29 for 14 days, and 01/15 for 14 days for twice daily use. Patient reports he was previously on 3 mg a day with Dr. Cannon however he retired and recently has been following out of town and has been prescribed 2 mg 4 Tablets per day reports he ran out in the last day, per med fill would be due to running out from prior prescription in 2 days. We will continue this on admission dose reduced to 0.5 mg a.m., 1 mg p.m. due to chronic daily use and risk of withdrawal. He denies alcohol withdrawal, reports [facility] put him on Librium but does not know why. He denies any alcohol use in the last month. ?benzo taper (4) COPD (chronic obstructive pulmonary disease): Plan: Endorses COPD on albuterol only due to history of tobacco use No PFTs available for review Nicotine patch ordered Azithromycin/cefepime as noted Flutter valve, incentive spirometry Titrate oxygen to 88-89%. Do not hyper oxygenate (5) RUDY (obstructive sleep apnea): Plan: CPAP Plan Chronic stable issues: Hyperlipidemia: Continue atorvastatin Hypertension: Continue lisinopril DVT prophylaxis: COVID DVT prophylaxis ordered Disposition: Medical surgical CODE STATUS: Full code Diet: Heart healthy Admission and Anticipated Discharge Date Admission Date: February 11, 2024 Subjective Patient seen and examined this morning with nurse at bedside. Patient reports he wants to leave hospital. patient is being noncompliant with wearing nasal cannula. Without nasal cannula, patient's O2 sat was 75% at time of encounter. Expressed to patient that with his oxygen levels this low, it would be unsafe to return home. Patient also endorses he is homeless. Patient coughing at time of encounter. He was agreeable to stay. Patient also had hypertonic saline nebs ordered but was noncompliant with this. Denied any additional complaints. He remains afebrile. Physical Exam 2 Constitutional: WD/WN, vitals as above Eyes: PERRL, conjunctivae normal, anicteric sclerae Respiratory: b/l wheezing Cardiovascular: RRR, no murmur, no edema Skin: no rashes, warm and dry Psychiatric: A+Ox3, euthymic affect Results & Data Results & Data Vital Signs (Past 12 Hours) Vital Signs Temp Pulse Resp BP Pulse Ox O2 Del Method O2 Flow Rate 02/12/24 10:01 75 18 90 Nasal Cannula 5 02/12/24 07:54 Nasal Cannula 5 02/12/24 07:47 36.5 C 75 18 115/70 90 Nasal Cannula 5 02/12/24 02:19 Nasal Cannula 5 Laboratory Results 02/11/24 10:05 02/11/24 10:05 PG Care Time/CCT Total # of Minutes Spent Total Time Spent with Patient: Total time spent is greater than 50% in coordination of care (as documented) at patient's floor/unit and/or counseling patient: Coding Level of Care Code 73864 SUB INP/OBS CARE 2/35MIN Diagnoses Acute respiratory failure with hypoxia J96.01 Viral pneumonia J12.9 Bipolar disorder F31.9 COPD (chronic obstructive pulmonary disease) J44.9 RUDY (obstructive sleep apnea) G47.33
[2024-02-12] MEDS: clonazePAM 0.5 MG TAB PO PRN (20:14)
--- NOTE | 2024-02-13 06:09 | Electrocardiogram Report ---
Test Reason : Blood Pressure : */* mmHG Vent. Rate : 87 BPM Atrial Rate : 87 BPM P-R Int : 148 ms QRS Dur : 116 ms QT Int : 398 ms P-R-T Axes : 63 252 73 degrees QTcB Int : 478 ms Normal sinus rhythm Pulmonary disease pattern Right bundle branch block Abnormal ECG When compared with ECG of 28-Jun-2023 21:03, Nonspecific T wave abnormality has replaced inverted T waves in Anterior leads Confirmed by Henry Paez ([id number]) on 02/13/2024 6:08:52 AM Referred By: Confirmed By: Henry Paez
[2024-02-13 07:08] VITALS: BP 145/76; PULSE 79; RESP 20; TEMP 98.2
[2024-02-13 11:20] VITALS: O2SAT 91
--- NOTE | 2024-02-13 12:23 | Discharge Summary ---
Discharge Summary Date of Service February 13, 2024 Principal Dx & Hospital Course #1 = Principal Diagnosis (1) Acute respiratory failure with hypoxia: Patient presented to the ED on 02/10 with complaints of shortness of breath and fevers. Patient was originally seen at [facility] on 02/08 and was given Doxycycline for COPD coverage. Patient also reportedly tested positive for COVID. Respiratory biofire was negative for COVID but + for Rhinovirus/ent erovirus. CXR revealed cardiomegaly and borderline pulmonary vascular congestion. Previously noted airspace opacities improved. No new evidence of lobar/superimposed pneumonia. CRP was 1.68. Patient was on prednisone 40mg daily, albuterol prn. Doxycycline was continued for COPD coverage. Azithromycin deferred due to borderline QT and multiple psychiatric meds. Oxygen was weaned down to 4L via nasal cannula on 02/12 with O2 sat of 91%. Patient was also given dose of lasix to promote dry pulmonary status. Patient refused labs on 02/11 and 02/12. Spoke with patient on 02/12 and patient adamantly wanted to sign out AMA. Went over risks with patient including respiratory failure, VA, CVA, and . patient verbalized understanding of risks and signed AMA paperwork. patient also refused to have any prescriptions sent to his pharmacy. He refused prednisone and had a previous prescription of doxycycline he wanted to take. (2) Viral pneumonia: see plan above (3) Bipolar disorder: History of bipolar disorder Continue venlafaxine, BuSpar, hydroxyzine, Depakote, ziprasidone, Cogentin, Remeron Patient reports he is due for his clonazepam. He reports he is out of this at home. Per med rec this was last filled 01/29 for 14 days, and 01/15 for 14 days for twice daily use. Patient reports he was previously on 3 mg a day with Dr. Cannon however he retired and recently has been following out of town and has been prescribed 2 mg 4 Tablets per day reports he ran out in the last day, per med fill would be due to running out from prior prescription in 2 days. We will continue this on admission dose reduced to 0.5 mg a.m., 1 mg p.m. due to chronic daily use and risk of withdrawal. He denies alcohol withdrawal, reports [facility] put him on Librium but does not know why. He denies any alcohol use in the last month. ?benzo taper Patient reported his respiratory distress was due to the fact that he was on a lower dose of his clonazepam than usual. Discussed w/ patient his respiratory distress is severe in nature and that it is not due to being on less of his benzo. Patient stated he had "librium that would get him through" and that "sleeping on a concrete floor was better than being in the hospital." - patient signed out AMA. (4) COPD (chronic obstructive pulmonary disease): Endorses COPD on albuterol only due to history of tobacco use - states he has albuterol inhaler with him at times. No PFTs available for review Nicotine patch ordered Flutter valve, incentive spirometry Titrate oxygen to 88-89%. Do not hyper oxygenate (5) RUDY (obstructive sleep apnea): CPAP Plan Chronic stable issues: Hyperlipidemia: Continue atorvastatin Hypertension: Continue lisinopril Risks of signing out AMA discussed w/ patient as above. Patient signed out AMA. Admission HPI Per Admitting Provider Jas is a 48-year-old male with a past medical history of bipolar disorder, suicidal ideation, hypertension, hyperlipidemia presents to the ER with cough and hypoxia. Was recently seen at [facility] 2 days ago for possible bronchitis, was started on antibiotics however has continued to get worse and called EMS. Was 86% on room air and route. Due to progressively worsening symptoms, COVID, and acute hypoxemia he is recommended for admission. Jas is seen at the bedside. He reports that he has had about 7 to 8 days of symptoms. Was diagnosed with COVID. Has been taking doxycycline for 2 days. He reports he saw [facility] and was initially getting better but in the last 24 hours he feels his breathing has rapidly worsened. He is much more short of breath at night and during the day, and short of breath on attempted exertion. Has had fevers up to 101 intermittently over the last week. He feels that his symptoms were fairly steady and maybe a little bit improved after going to [facility], but are much worse in the last 24 hours. Denies nausea or vomiting. Denies diarrhea or constipation. Cough is productive for thick yellow sputum which has not changed in the last 7 days. He does have COPD due to tobacco use. He denies any recreational drug use in the last month. Medical History: Reviewed Medications: Reviewed Surgical History: Reviewed Family history: Reviewed Allergies: Reviewed Social History: Endorses tobacco use. Endorses intermittent alcohol use no use in the last week due to feeling ill. Past recreational drug use, denies any recreational drug use recently and specifically no heroin, meth, or IV drug use in the last month. Code Status: Full code Discharge Plan Discharge Items Patient Disposition: Against Medical Advice Reason For Visit: ahfr, copd,geronimo/entero Activity: Resume your previous activity Non-emergency contact: Primary Care Provider Follow-up/Referrals: PCPMATTHEW [Primary Care Provider] - [employer] Provider Instructions: Mr. Guerrero, You were recently hospitalized for experiencing worsening shortness of breath. You were found to have critically low oxygen levels and were given oxygen via nasal cannula. You have elected to sign out against medical advice following being informed of the risks. Risks of signing out against medical advice include worsening of your conditions which can lead to a heart attack, stroke, respiratory failure, and . You also elected to not have any medications sent to your pharmacy to aid in your current illness. If you experience any worsening symptoms including worsening shortness of breath, bluish discoloration of skin, chest pain, dizziness, or weakness please report back to the ER for further care. Sincerely, Anne-Marie HERNANDEZ Pending Studies at Discharge: No Stand-Alone Forms: My [facility], Smoking Cessation Medications and DC Order Prescriptions: Continued divalproex [Depakote ER] 500 mg Tablet Extended Release 24 Hr 1,500 mg PO BID Rx Instructions: 3 tablet dose venlafaxine [Effexor XR] 150 mg Capsule,Extended Release 24hr 150 mg PO QAM lisinopril 10 mg tablet 10 mg PO DAILY mirtazapine 15 mg tablet 15 mg PO HS buspirone 10 mg tablet 10 mg PO TID albuterol sulfate 90 mcg/actuation HFA aerosol inhaler 2 puff INHALATION QID PRN (Reason: Wheezing) Rx Instructions: PER PT "DON'T HAVE AT HOME" clonazepam 1 mg tablet 0.5 mg PO QID PRN (Reason: Anxiety) ziprasidone HCl [Geodon] 60 mg capsule 60 mg PO BID atorvastatin 40 mg tablet 40 mg PO DAILY doxycycline hyclate 100 mg capsule 100 mg PO BID Discharge Orders: Left Against Medical Advice (Routine); Ordered 02/13/24 Ordered By: Anne-Marie Singh Admission Data Admit Date/Time: 02/11/24 12:32 Attending Provider: Trevon Cummins Admit Provider: Papo Rios Primary Care Provider: PCP,NO Other Providers: Papo Rios Hospital Stay Data Consultations 02/11/24 12:28 ED Decision to Admit Stat Pending Results Patient Have Any Pending Studies at Discharge: No Total Time Total Time Spent Total Time Spent (In Minutes): 38 Total Time Includes: Examination of the Patient, Discharge Planning and Medication Reconciliation Coding Level of Care Code 69812 INP/OBS DISCH >30 MIN Diagnoses Acute respiratory failure with hypoxia J96.01 Viral pneumonia J12.9 Bipolar disorder F31.9 COPD (chronic obstructive pulmonary disease) J44.9 RUDY (obstructive sleep apnea) G47.33
== END 2024-02-13 12:23 | disposition left against medical advice (07) | DRG 189 ==
LOC: ED 09:53 → SUATTDRO 12:32 → EDINP 12:32 → 3N 16:43